=== PATIENT | male | born 1940 | race Caucasian/White ===

== ENCOUNTER 2020-07-06 12:51 | Outpatient (REF) | payer MEDICARE, OTHER, SELFPAY ==
[2020-07-06 15:51] LABS: TSH reflex Free T4 8.77 uIU/mL (0.32-4.0)
[2020-07-06 16:32] LABS: Free T4 (Free Thyroxine) 0.87 ng/dL (0.71-1.85)
== END 2020-07-06 12:52 | disposition home or self-care (01) ==
LOC: HO.LAB 12:51
PROVIDERS: PCP Internal Medicine Endocrinology, Diabetes & Metabolism; Visit Provider Internal Medicine
DX: I48.0 Paroxysmal atrial fibrillation (principal); I21.4 Non-ST elevation (NSTEMI) myocardial infarction; I35.0 Nonrheumatic aortic (valve) stenosis; Z79.899 Other long term (current) drug therapy
CPT/HCPCS: 36415; 84439; 84443; 93005; 99212

== ENCOUNTER 2020-12-25 09:47 | Outpatient (REF) | payer MEDICARE, OTHER, SELFPAY ==
[2020-12-25 10:35] LABS: Hematocrit 39.3 % (42-52); Mean Corpuscular HGB Conc 33.1 g/dl (31.0-36.0); Mean Corpuscular Hemoglobin 31.6 pg (27.0-33.0); Mean Corpuscular Volume 95.6 fL (80-98); Mean Platelet Volume 9.3 fL (9.4-12.4); Platelet Count 201 X10*3/uL (160-400); Red Blood Count 4.11 X10*6/uL (4.60-5.80); Red Cell Distribution Width 13.9 % (11.0-16.0); White Blood Count 4.7 X10*3/uL (4.8-10.8)
[2020-12-25 11:16] LABS: Alanine Aminotransferase 13 U/L (0-40); Albumin Level 4.3 g/dL (3.5-5.0); Alkaline Phosphatase 82 U/L (39-117); Anion Gap 12 (12-20); Aspartate Amino Transferase 17 U/L (5-37); Bilirubin Direct 0.2 mg/dL (0.0-0.5); Bilirubin Total 0.6 mg/dL (0.0-1.0); Blood Urea Nitrogen 27 mg/dL (9-16); Carbon Dioxide 23 mmol/L (22-29); Chloride 108 mmol/L (96-108); Estimated Glomerular Filt Rate > 60; Glucose Random 99 mg/dL (60-115); Potassium 4.5 mmol/L (3.3-5.1); Sodium 138 mmol/L (135-145); Total Protein 6.9 g/dL (6.5-8.0)
[2020-12-25 11:18] LABS: TSH reflex Free T4 7.28 uIU/mL (0.32-4.0)
[2020-12-25 11:54] LABS: Free T4 (Free Thyroxine) 0.91 ng/dL (0.71-1.85)
== END 2020-12-25 09:48 | disposition home or self-care (01) ==
LOC: HO.LAB 09:47
PROVIDERS: PCP Internal Medicine; Visit Provider Internal Medicine
DX: I48.0 Paroxysmal atrial fibrillation (principal)
CPT/HCPCS: 36415; 80048; 80076; 84439; 84443; 85027

== ENCOUNTER → 2021-01-04 09:32 | Outpatient (BNVA) | payer MEDICARE, OTHER, SELFPAY | PROVIDERS: PCP Internal Medicine Endocrinology, Diabetes & Metabolism; Referring Provider Internal Medicine; Visit Provider Internal Medicine | DX: I48.0 Paroxysmal atrial fibrillation (principal); I21.4 Non-ST elevation (NSTEMI) myocardial infarction; I35.0 Nonrheumatic aortic (valve) stenosis | CPT/HCPCS: 93005; 99212 ==

== ENCOUNTER 2021-03-30 08:58 | Outpatient (RCR) | payer MEDICARE, OTHER, SELFPAY | END 2021-08-27 09:22 | disposition home or self-care (01) | LOC: HO.WCC 08:58 | PROVIDERS: PCP Internal Medicine; Visit Provider Physician Assistant | DX: I87.331 Chronic venous hypertension (idiopathic) with ulcer and inflammation of right lower extremity (principal); L97.812 Non-pressure chronic ulcer of other part of right lower leg with fat layer exposed; T81.31XA Disruption of external operation (surgical) wound, not elsewhere classified, initial encounter; I73.9 Peripheral vascular disease, unspecified; C44.719 Basal cell carcinoma of skin of left lower limb, including hip; I48.91 Unspecified atrial fibrillation; Z87.891 Personal history of nicotine dependence | CPT/HCPCS: 11042; 11043; 15271; 29581; 97597; 99212; Q4160; Q4196 ==

== ENCOUNTER 2021-04-16 13:48 | Outpatient (REF) | payer MEDICARE, OTHER, SELFPAY ==
[2021-04-16 14:04] LABS: MANUAL DIFF FLAG NO
[2021-04-16 14:11] LABS: Basophils Absolute Auto 0.1 X10*3/uL (0.0-0.2); Eosinophils Absolute Auto 0.2 X10*3/uL (0.0-0.4); Hematocrit 41.5 % (42.0-52.0); Hemoglobin 13.6 g/dl (14.0-18.0); Imm Gran Abs Auto 0.01 X10*3/uL (0.00-0.03); Imm Gran Pct Auto 0.2 % (0.0-0.4); Lymphocytes Absolute Auto 1.9 X10*3/uL (1.2-4.9); Lymphocytes Percent Auto 36.7 % (20-40); Mean Corpuscular HGB Conc 32.8 g/dl (31.0-36.0); Mean Corpuscular Hemoglobin 30.6 pg (27.0-33.0); Mean Corpuscular Volume 93.5 fL (80.0-98.0); Mean Platelet Volume 9.5 fL (9.4-12.4); Monocytes Absolute Auto 0.6 X10*3/uL (0.1-1.2); Monocytes Percent Auto 10.5 % (2-11); Neutrophils Absolute Auto 2.5 x10*3/uL (2.0-8.3); Neutrophils Percent Auto 47.6 % (45-73); Platelet Count 216 X10*3/uL (160-400); Red Blood Count 4.44 X10*6/uL (4.60-5.80); Red Cell Distribution Width 13.2 % (11.0-16.0); White Blood Count 5.2 X10*3/uL (4.8-10.8)
[2021-04-16 14:37] LABS: Anion Gap 14 (12-20); Blood Urea Nitrogen 25 mg/dL (9-16); Calcium 9.1 mg/dL (8.4-10.2); Carbon Dioxide 22 mmol/L (22-29); Chloride 106 mmol/L (96-108); Estimated Glomerular Filt Rate > 60; Glucose Random 106 mg/dL (60-115); Potassium 4.8 mmol/L (3.3-5.1); Sodium 137 mmol/L (135-145)
[2021-04-16 15:00] LABS: Free T4 (Free Thyroxine) 0.95 ng/dL (0.71-1.85); Thyroid Stimulating Hormone 4.87 uIU/mL (0.32-4.0)
== END 2021-04-16 13:49 | disposition home or self-care (01) ==
LOC: HO.LAB 13:48
PROVIDERS: PCP Internal Medicine; Visit Provider Internal Medicine
DX: R48.0 Dyslexia and alexia (principal); R60.0 Localized edema; M19.90 Unspecified osteoarthritis, unspecified site; R94.6 Abnormal results of thyroid function studies
CPT/HCPCS: 36415; 80048; 84439; 84443; 85025

== ENCOUNTER 2021-04-23 07:49 | Day surgery (SDC) | payer MEDICARE, OTHER, SELFPAY ==
[2021-04-16 11:56] VITALS: BMI 27.0
--- NOTE | 2021-04-17 10:55 | HP_ITS ---
DATE OF SERVICE: 04/23/2021 The patient is a 80, almost 81-year-old male scheduled for a right cataract replacement by Dr. Wilde on April 23 at [facility]. Patient was seen today for preop evaluation. The patient is being followed in the [facility] for right pretibial wound, which developed after removal of a skin cancer area. The patient is on Xarelto for paroxysmal atrial fibrillation. He takes metoprolol 12.5 a day, tamsulosin 0.4 mg at bedtime, and amiodarone has been discontinued. PAST MEDICAL HISTORY: Significant for atrial fibrillation. BPH, osteoarthritis of the knees, hemorrhoids, right total hip replacement in 2010, basal cell cancer removed from the right leg. REVIEW OF SYSTEMS: No fevers, chills, or sweats. He has put on 6 pounds since last visit. No headaches or dizziness. No voice changes. He does have some peripheral edema. No chest pain or palpitations. Some dyspnea with exertion. No cough or wheeze. No heartburn or stomach pains. Some nocturia and straining, osteoarthritis of the knees and hands. Sleep is interrupted by nocturia. Appetite is good. No complaints of seasonal allergies. Skin lesion at the right pretibial area, which is being treated by the [facility]. FAMILY HISTORY: Mother at 76 from complications of diabetes. Father at 54 from an [place] and hypertension. He has a brother in good health. SOCIAL: He is a , lives alone, has 2 children in good health. He quit smoking 40 years ago. He does not drink. PHYSICAL EXAMINATION: GENERAL: He is awake and alert, in no distress. VITAL SIGNS: Temperature 98.7, pulse 72, respirations 12, pressure 140/70, 99% oxygen saturation on room air. Weight is 200 pounds even, height is 5 feet 11 inches. HEENT: A little hard of hearing. TMs clear. Pharynx clear. HEART: Sounds S1 and S2. Regular rate. LUNGS: Clear. ABDOMEN: Soft, nontender. Positive bowel sounds. No HSM. EXTREMITIES: 2+ edema on the right with a dressing on the pretibial area, where the wound is being treated 1+ on the left with mild venous stasis disease bilaterally. No bruising. NEUROLOGIC: He is alert and oriented. ASSESSMENT AND PLAN: He is medically stable for the proposed procedure. I will be available if there are any medical issues. It is safe for him to stop the Xarelto the day before and on the day of the procedure and resume it the day after. He should continue taking the metoprolol every day. He uses the tamsulosin at bedtime. He is advised to avoid Aleve or Advil or anti-inflammatory medications because of the risk of bleeding with the Xarelto. He is medically stable for the proposed procedure. MD NANCY Guerrero/GARY / [id number]
--- NOTE | 2021-04-19 08:19 | MHC.SHP ---
Pre-Procedural Eval Section A Date of Service: 04/19/21 The patient is an INPATIENT: No Changes since office visit: No Cold of Flu in the past 2 weeks, No New Medical Problems, No Changes in Medication and No Patient answered all questions The History & Physical has been completed within 30 days and I have reviewed it.: Yes Section B Chief Complaint: cataract Allergies: Allergies Allergy/AdvReac Type Severity Reaction Status Date / Time No Known Allergies Allergy Verified 04/16/21 11:55 [No Known Allergies*] Plan Diagnosis/Plan: Unchanged I have reviewed the history and physical and performed a pertinent physical examination on my patient. No changes have occurred unless specified.
--- NOTE | 2021-04-20 08:46 | HO.ANESPROP2 ---
Documented by User: Li Mendez NP 04/20/21 08:47 HPI - Anesthesia Eval Consult details Narrative: 81yo M for Right Cataract Extraction IOL Insertion No prev cataract on record PCP cleared Xarelto for afib PMFSH Active Problems Active Problems: All Active Problems (Updated 04/16/21 @ 12:15 by Anabella Hussein, RN) Non-rheumatic aortic stenosis (Acute) NSTEMI (non-ST elevated myocardial infarction) (Acute) PAF (paroxysmal atrial fibrillation) (Acute) Past Medical History Medical History (Updated 04/16/21 @ 12:15 by Anabella Hussein RN) Cataract Non-rheumatic aortic stenosis NSTEMI (non-ST elevated myocardial infarction) PAF (paroxysmal atrial fibrillation) Wears dentures Family History Family History Father No problems noted. Mother No problems noted. Surgical History Surgical History (Updated 04/16/21 @ 12:15 by Anabella Hussein RN) History of right hip replacement (~2010) Hx of appendectomy Hx of basal cell carcinoma excision Hx of colonoscopy Social History Social History (Updated 04/16/21 @ 11:55 by Anabella Hussein RN) Do you presently have visiting nurse or other home services: Yes (VNA 2x week changes dressing on right lower leg s/p skin ca excision) Patient Tobacco Use Status: Former Tobacco user Quit Date: Use of substances other than those prescribed or required for medical reasons: No Are you DNR?: No Advance Directives: No Advance Directives Information Provided: Yes Advance Directives on File: No Meds Allergies Allergy/AdvReac Type Severity Reaction Status Date / Time No Known Allergies Allergy Verified 04/16/21 11:55 [No Known Allergies*] Home Medications Medication Instructions Recorded Confirmed Last Taken Type tamsulosin 0.4 mg capsule 1 cap PO QPM 04/16/21 04/16/21 Unknown History Exam Exam Date and Time: April 20, 2021 0846 Height,Weight and Vital Signs: Height 5 ft 11 in Weight 87.997 kg Assessment and Plan Assessment Anesthesia Assessment: Chart Reviewed Documented by User: Hoa Florence MD 04/23/21 10:39 PMFSH Active Problems Active Problems: All Active Problems (Updated 04/16/21 @ 12:15 by Anabella Hussein, RN) Non-rheumatic aortic stenosis (Acute)- Patient unaware. Echo 2019 - Normal EF 60-65%. Moderate calcification of aortic valve. Trivial AV regurgitation.Mild MR. Mild TR. Repeat echo 12/07/19: EF 60-65%. Interatrial shunt cannot be excluded. Mild calcification of AV. Mild AV stenosis. DC 1.82cm2. Trace MR NSTEMI (non-ST elevated myocardial infarction) (Acute) in setting of afib with RVR post colonoscopy 2018 PAF (paroxysmal atrial fibrillation) (Acute) Past Medical History Medical History (Updated 04/16/21 @ 12:15 by Anabella Hussein RN) Cataract Non-rheumatic aortic stenosis NSTEMI (non-ST elevated myocardial infarction) PAF (paroxysmal atrial fibrillation) Wears dentures Family History Family History Father No problems noted. Mother No problems noted. Family history of problems with anesthesia: No Surgical History Surgical History (Updated 04/16/21 @ 12:15 by Anabella Hussein, RN) History of right hip replacement (~2010) Hx of appendectomy Hx of basal cell carcinoma excision Hx of colonoscopy History of Problems with Anesthesia: No (As above - afib post colonoscopy) Social History Social History (Updated 04/16/21 @ 11:55 by Anabella Hussein, MELVI) Do you presently have visiting nurse or other home services: Yes (VNA 2x week changes dressing on right lower leg s/p skin ca excision) Patient Tobacco Use Status: Former Tobacco user Quit Date: Use of substances other than those prescribed or required for medical reasons: No Are you DNR?: No Advance Directives: No Advance Directives Information Provided: Yes Advance Directives on File: No Meds Allergies Allergy/AdvReac Type Severity Reaction Status Date / Time No Known Allergies Allergy Verified 04/16/21 11:55 [No Known Allergies*] Home Medications Medication Instructions Recorded Confirmed Last Taken Type tamsulosin 0.4 mg capsule 1 cap PO QPM 04/16/21 04/16/21 Unknown History Exam Height,Weight and Vital Signs: Height 5 ft 11 in Weight 87.997 kg Vital Signs Temp Pulse Resp BP Pulse Ox 04/23/21 09:21 98.4 F 73 18 148/66 H 97 Airway Mallampati Class: II TM Dist: >3cm Neck ROM: Full Denture: Upper Loose/Missing/Broken Teeth: Yes (Some missing bottom) Heart: RRR. Unable to hear heart murmur Lungs: CTAB Assessment and Plan Assessment Anesthesia Assessment: Anesthesia Plan Discussed Final Anesthetic Review Family History of Problems with Anesthesia: No History of Problems with Anesthesia: No (As above - afib post colonoscopy) NPO: Yes ASA Class: III Final Preanesthetic Review: No Changes in Pt Med Stat, Meds/Allgs Chart Reviewed, Consent Obtained/Reviewed and Anes Risks/Benef Reviewed Patient Risk: Intermediate Procedure Risk: Low Assessment/Block/Sedation in SS: Assess/Block/Sedation-SS Anesthetic Plan Anesthetic Plan: MAC: Disposition: Standard PACU
[2021-04-23 09:21] VITALS: BP 148/66; PULSE 73; RESP 18; TEMP 36.9; O2SAT 97
[2021-04-23] MEDS: Lactated Ringers 500 ML 50 ML IV (09:23)
[2021-04-23] MEDS: Tetracaine HCl/PF 0.5% Oph Sol 4 ML DROPS 1 DROP EYE-RIGHT (09:24)
[2021-04-23] MEDS: Tropicamide 1 % Ophth Sol 3 ML BTL 1 DROP EYE-RIGHT ×3 (09:27→09:36)
[2021-04-23] MEDS: Phenylephrine HCL 2.5% Oph SoL 2 ML BOTTLE 1 DROP EYE-RIGHT ×3 (09:30→09:38)
--- NOTE | 2021-04-23 11:03 | HO.PNOPHT ---
Ophthalmology Procedure Procedure Date of Service: 04/23/21 Ophthalmology Viscoelastic: Healalma rosa Duet Dual Pack Pro Ophthalmology Lenses: TECNEERU [id number] (22) Procedure Notes: PREOPERATIVE DIAGNOSIS: Decreased visual acuity right eye secondary to cataract POSTOPERATIVE DIAGNOSIS: Same PROCEDURE: Right cataract extraction with intraocular lens insertion SURGEON: Kelvin Wilde M.D. ANESTHESIA: Topical/MAC ESTIMATED BLOOD LOSS: None COMPLICATIONS: None After obtaining informed consent, the patient was brought to the operating room suite and placed in the supine position. After adequate sedation per anesthesia, topical drops of Tetracaine were given to the right eye. The eye was then prepped and draped in the usual sterile fashion. The operating room microscope was then positioned over the operative eye and a lid speculum placed. A paracentesis was created. Viscoelastic was then instilled into the anterior chamber. A three plane incision was then created temporally, utilizing a 2.85 mm keratome. Capsulotomy forceps were then utilized to create a circular tear capsulotomy. Hydrodissection and hydrodelineation were carried out until adequate mobilization of the nucleus occurred. Phacoemulsification was then utilized to remove the dense central nucleus followed by removal of the cortical material utilizing the automated aspiration irrigation unit. Viscoelastic was instilled into the posterior capsular bag followed by placement of a posterior chamber intraocular lens without difficulty. The residual Viscoelastic was then removed utilizing the automated IA machine. The wound was checked and found to be watertight. The patient tolerated the procedure well and the lid speculum was removed. Intracameral injection of Vigamox 0.1 mL followed by a subtenon injection of Kenalog-40 0.2 mL were administered. The patient will be seen in the a.m.
[2021-04-23 11:37] VITALS: BP 141/60; PULSE 76; RESP 16; TEMP 36.4; O2SAT 96
== END 2021-04-23 11:35 | disposition home or self-care (01) ==
PROVIDERS: PCP Internal Medicine; Visit Provider Ophthalmology
PROC: (CPT 66985; principal; 2021-04-23 11:00)
DX: H25.11 Age-related nuclear cataract, right eye (principal); H52.4 Presbyopia; I48.91 Unspecified atrial fibrillation; Z87.891 Personal history of nicotine dependence; Z79.01 Long term (current) use of anticoagulants; Z79.899 Other long term (current) drug therapy
CPT/HCPCS: 66984; J2250; J3010; J3300; V2632

== ENCOUNTER 2021-05-07 08:06 | Day surgery (SDC) | payer MEDICARE, OTHER, SELFPAY ==
[2021-04-16 12:00] VITALS: BMI 27.0
--- NOTE | 2021-05-03 16:38 | MHC.SHP ---
Pre-Procedural Eval Section A Date of Service: 05/03/21 The patient is an INPATIENT: No Changes since office visit: No Cold of Flu in the past 2 weeks, No New Medical Problems, No Changes in Medication and No Patient answered all questions The History & Physical has been completed within 30 days and I have reviewed it.: Yes Section B Chief Complaint: cataract Allergies: Allergies Allergy/AdvReac Type Severity Reaction Status Date / Time No Known Allergies Allergy Verified 04/16/21 11:55 [No Known Allergies*] Plan Diagnosis/Plan: Unchanged I have reviewed the history and physical and performed a pertinent physical examination on my patient. No changes have occurred unless specified.
--- NOTE | 2021-05-04 08:43 | HO.ANESPROP2 ---
Documented by User: Li Mendez NP 05/04/21 08:44 HPI - Anesthesia Eval Consult details Narrative: 81yo M for Left Cataract Extraction IOL Insertion PCP Cleared Right eye 04/23/2021 with TIVA: Fentanyl 50, Midaz 1 Xarelto for afib PMFSH Active Problems Active Problems: All Active Problems (Updated 04/16/21 @ 12:15 by Anabella Hussein, MELVI) Non-rheumatic aortic stenosis (Acute) NSTEMI (non-ST elevated myocardial infarction) (Acute) PAF (paroxysmal atrial fibrillation) (Acute) Past Medical History Medical History (Updated 04/16/21 @ 12:15 by Anabella Hussein, MELVI) Cataract Non-rheumatic aortic stenosis NSTEMI (non-ST elevated myocardial infarction) PAF (paroxysmal atrial fibrillation) Wears dentures Family History Family History Father No problems noted. Mother No problems noted. Family history of problems with anesthesia: No Surgical History Surgical History (Updated 04/16/21 @ 12:15 by Anabella Hussein RN) History of right hip replacement (~2010) Hx of appendectomy Hx of basal cell carcinoma excision Hx of colonoscopy History of Problems with Anesthesia: No (As above - afib post colonoscopy) Social History Social History (Updated 04/16/21 @ 11:55 by Anabella Hussein RN) Do you presently have visiting nurse or other home services: Yes (VNA 2x week changes dressing on right lower leg s/p skin ca excision) Patient Tobacco Use Status: Former Tobacco user Quit Date: Are you DNR?: No Advance Directives: No Advance Directives Information Provided: Yes Advance Directives on File: No Meds Allergies Allergy/AdvReac Type Severity Reaction Status Date / Time No Known Allergies Allergy Verified 05/07/21 10:16 [No Known Allergies*] Home Medications Medication Instructions Recorded Confirmed Last Taken Type tamsulosin 0.4 mg capsule 1 cap PO QPM 04/16/21 04/16/21 Unknown History Exam Exam Date and Time: May 04, 2021 0843 Height,Weight and Vital Signs: Height 5 ft 11 in Weight 87.997 kg Assessment and Plan Assessment Anesthesia Assessment: Chart Reviewed Final Anesthetic Review Family History of Problems with Anesthesia: No History of Problems with Anesthesia: No (As above - afib post colonoscopy) Documented by User: Hoa Florence MD 05/07/21 11:03 [facility] Past Medical History Medical History (Updated 04/16/21 @ 12:15 by Anabella Hussein, RN) Cataract Non-rheumatic aortic stenosis NSTEMI (non-ST elevated myocardial infarction) PAF (paroxysmal atrial fibrillation) Wears dentures Family History Family History Father No problems noted. Mother No problems noted. Surgical History Surgical History (Updated 04/16/21 @ 12:15 by Anabella Hussein, RN) History of right hip replacement (~2010) Hx of appendectomy Hx of basal cell carcinoma excision Hx of colonoscopy Social History Social History (Updated 04/16/21 @ 11:55 by Anabella Hussein, MELVI) Do you presently have visiting nurse or other home services: Yes (VNA 2x week changes dressing on right lower leg s/p skin ca excision) Patient Tobacco Use Status: Former Tobacco user Quit Date: Are you DNR?: No Advance Directives: No Advance Directives Information Provided: Yes Advance Directives on File: No Meds Allergies Allergy/AdvReac Type Severity Reaction Status Date / Time No Known Allergies Allergy Verified 05/07/21 10:16 [No Known Allergies*] Home Medications Medication Instructions Recorded Confirmed Last Taken Type tamsulosin 0.4 mg capsule 1 cap PO QPM 04/16/21 04/16/21 Unknown History Exam Height,Weight and Vital Signs: Height 5 ft 11 in Weight 87.997 kg Vital Signs Temp Pulse Resp BP Pulse Ox 05/07/21 10:20 97.7 F 63 16 163/66 H 98 Airway Mallampati Class: II TM Dist: >3cm Neck ROM: Full Loose/Missing/Broken Teeth: Yes (Some missing bottom) Heart: RRR+ murmur Lungs: CTAB Assessment and Plan Assessment Anesthesia Assessment: Anesthesia Plan Discussed Final Anesthetic Review NPO: Yes ASA Class: III Final Preanesthetic Review: No Changes in Pt Med Stat, Meds/Allgs Chart Reviewed, Consent Obtained/Reviewed and Anes Risks/Benef Reviewed Patient Risk: Intermediate Procedure Risk: Low Assessment/Block/Sedation in SS: Assess/Block/Sedation-SS Anesthetic Plan Anesthetic Plan: MAC: Disposition: Standard PACU
[2021-05-07 10:20] VITALS: BP 163/66; PULSE 63; RESP 16; TEMP 36.5; O2SAT 98
[2021-05-07] MEDS: Tetracaine HCl/PF 0.5% Oph Sol 4 ML DROPS 1 DROP EYE-LEFT (10:24)
[2021-05-07] MEDS: Tropicamide 1 % Ophth Sol 3 ML BTL 1 DROP EYE-LEFT ×3 (10:26→10:38)
[2021-05-07] MEDS: Phenylephrine HCL 2.5% Oph SoL 2 ML BOTTLE 1 DROP EYE-LEFT ×3 (10:30→10:42)
[2021-05-07] MEDS: Lactated Ringers 500 ML 50 ML IV (11:11)
--- NOTE | 2021-05-07 12:00 | HO.PNOPHT ---
Ophthalmology Procedure Procedure Date of Service: 05/07/21 Ophthalmology Viscoelastic: Healon Duet Dual Pack Pro Ophthalmology Lenses: TECNEERU [id number] (22) Procedure Notes: PREOPERATIVE DIAGNOSIS: Decreased visual acuity left eye secondary to cataract POSTOPERATIVE DIAGNOSIS: Same PROCEDURE: Left cataract extraction with intraocular lens insertion SURGEON: Kelvin Wilde M.D. ANESTHESIA: Topical/MAC ESTIMATED BLOOD LOSS: None COMPLICATIONS: None After obtaining informed consent, the patient was brought to the operation room suite and placed in the supine position. After adequate sedation per anesthesia, topical drops of Tetracaine were given to the left eye. The eye was then prepped and draped in the usual sterile fashion. The operating room microscope was then positioned over the operative eye and a lid speculum placed. A paracentesis was created. Viscoelastic was then instilled into the anterior chamber. A three plane incision was then created temporally, utilizing a 2.85 mm keratome. Capsulotomy forceps were then utilized to create a circular tear capsulotomy. Hydrodissection and hydrodelineation were carried out until adequate mobilization of the nucleus occurred. Phacoemulsification was then utilized to remove the dense central nucleus followed by removal of the cortical material utilizing the automated aspiration irrigation unit. Viscoat elastic was instilled into the posterior capsular bag followed by placement of a posterior chamber intraocular lens without difficulty. The residual Viscoat elastic was then removed utilizing the automated IA machine. The wound was check and found to be watertight. The patient tolerated the procedure well and the lid speculum was removed. Intracameral injection of Vigamox 0.1 mL followed by a subtenon injection of Kenalog-40 0.2 mL were administered. The patient will be seen in the a.m.
[2021-05-07 12:29] VITALS: BP 124/52; PULSE 58; RESP 16; TEMP 36.6; O2SAT 98
== END 2021-05-07 12:39 | disposition home or self-care (01) ==
PROVIDERS: PCP Internal Medicine; Visit Provider Ophthalmology
PROC: (CPT 66985; principal; 2021-05-07 11:30)
DX: H25.12 Age-related nuclear cataract, left eye (principal); H52.4 Presbyopia; H54.7 Unspecified visual loss; I48.0 Paroxysmal atrial fibrillation; N40.1 Benign prostatic hyperplasia with lower urinary tract symptoms; R35.1 Nocturia; Z85.828 Personal history of other malignant neoplasm of skin; Z79.01 Long term (current) use of anticoagulants; Z79.899 Other long term (current) drug therapy; Z87.891 Personal history of nicotine dependence
CPT/HCPCS: 66984; J2250; J3010; J3300; V2632

== ENCOUNTER 2021-05-29 07:31 | Outpatient (REF) | payer MEDICARE, OTHER, SELFPAY ==
--- NOTE | ~2021-05-29 | US_ITS ---
EXAMINATION: Noninvasive assessment of the arteries of both lower extremities to include a PVR exam limited (1-2 levels) and GE, bilateral. ? Pato Bah M.D. CLINICAL INFORMATION: Leg pain, peripheral vascular disease COMPARISON: None TECHNIQUE: The ankle/brachial indices of the distal posterior tibial and the dorsalis pedis arteries were obtained of the lower extremity arterial system bilaterally; along with pressures and pulse volume recordings at the ankle and duplex Doppler techniques of the right lower extremity. ? FINDINGS AT REST:? RIGHT LE. THE RIGHT ANKLE-BRACHIAL INDEX IS: 0.7 (higher of the DP/PT) >0.97-1.25 = normal - no significant arterial disease 0.75-0.96 = mild peripheral arterial disease 0.50-0.74 = moderate peripheral arterial disease <0.50 = severe peripheral arterial disease <0.30 = critical arterial disease 2. SEGMENTAL PRESSURES: Ankle: PT 196 DP not audible 3. PVR WAVEFORMS: Ankle: Blunted 4. DIRECT DUPLEX: Duplex Doppler imaging of the right lower extremity demonstrates normal multiphasic waveforms in the common femoral artery through the distal SFA. There is only a velocities with monophasic waveform in the popliteal artery, peak systolic velocity is 177 cm/s. Catheter vessels are not visualized due to overlying dressing. Collateral vessels are visualized distally. LEFT LE. THE LEFT ANKLE-BRACHIAL INDEX IS: 0.82 (higher of the DP/PT) >0.97-1.25 = normal - no significant arterial disease 0.75-0.96 = mild peripheral arterial disease 0.50-0.74 = moderate peripheral arterial disease <0.50 = severe peripheral arterial disease <0.30 = critical arterial disease 2. SEGMENTAL PRESSURES: Ankle: PT 87 DP 112 3. PVR WAVEFORMS: Ankle: Abnormally blunted ? US/US arterial duplex LE RT IMPRESSION: The ankle brachial indices and PVR waveforms suggest at least moderate peripheral vascular disease on the right and mild on the left. The right dorsalis pedis is not audible. Elevated velocity with monophasic flow in the right popliteal artery. Consider further evaluation with CTA with bilateral lower extremity runoff for better evaluation of the lower extremity arterial system.
--- NOTE | ~2021-05-29 | US_ITS ---
EXAMINATION: Noninvasive assessment of the arteries of both lower extremities to include a PVR exam limited (1-2 levels) and GE, bilateral. ? Pato Bah M.D. CLINICAL INFORMATION: Leg pain, peripheral vascular disease COMPARISON: None TECHNIQUE: The ankle/brachial indices of the distal posterior tibial and the dorsalis pedis arteries were obtained of the lower extremity arterial system bilaterally; along with pressures and pulse volume recordings at the ankle and duplex Doppler techniques of the right lower extremity. ? FINDINGS AT REST:? RIGHT LE. THE RIGHT ANKLE-BRACHIAL INDEX IS: 0.7 (higher of the DP/PT) >0.97-1.25 = normal - no significant arterial disease 0.75-0.96 = mild peripheral arterial disease 0.50-0.74 = moderate peripheral arterial disease <0.50 = severe peripheral arterial disease <0.30 = critical arterial disease 2. SEGMENTAL PRESSURES: Ankle: PT 196 DP not audible 3. PVR WAVEFORMS: Ankle: Blunted 4. DIRECT DUPLEX: Duplex Doppler imaging of the right lower extremity demonstrates normal multiphasic waveforms in the common femoral artery through the distal SFA. There is only a velocities with monophasic waveform in the popliteal artery, peak systolic velocity is 177 cm/s. Catheter vessels are not visualized due to overlying dressing. Collateral vessels are visualized distally. LEFT LE. THE LEFT ANKLE-BRACHIAL INDEX IS: 0.82 (higher of the DP/PT) >0.97-1.25 = normal - no significant arterial disease 0.75-0.96 = mild peripheral arterial disease 0.50-0.74 = moderate peripheral arterial disease <0.50 = severe peripheral arterial disease <0.30 = critical arterial disease 2. SEGMENTAL PRESSURES: Ankle: PT 87 DP 112 3. PVR WAVEFORMS: Ankle: Abnormally blunted ? US/US GE complete IMPRESSION: The ankle brachial indices and PVR waveforms suggest at least moderate peripheral vascular disease on the right and mild on the left. The right dorsalis pedis is not audible. Elevated velocity with monophasic flow in the right popliteal artery. Consider further evaluation with CTA with bilateral lower extremity runoff for better evaluation of the lower extremity arterial system.
== END 2021-05-29 07:32 | disposition home or self-care (01) ==
LOC: HO.US 07:31
PROVIDERS: PCP Internal Medicine; Visit Provider Physician Assistant
DX: I73.9 Peripheral vascular disease, unspecified (principal)
CPT/HCPCS: 93923; 93926

== ENCOUNTER 2021-06-27 14:16 | Outpatient (REF) | payer MEDICARE, OTHER, SELFPAY ==
[2021-06-27 15:13] LABS: Blood Urea Nitrogen 22 mg/dL (9-16); Estimated Glomerular Filt Rate > 60
== END 2021-06-27 14:17 | disposition home or self-care (01) ==
LOC: HO.LAB 14:16
PROVIDERS: PCP Internal Medicine; Visit Provider Radiology Vascular & Interventional Radiology
DX: R79.89 Other specified abnormal findings of blood chemistry (principal); R94.4 Abnormal results of kidney function studies
CPT/HCPCS: 36415; 82565; 84520

== ENCOUNTER → 2021-07-12 09:45 | Outpatient (BNVA) | payer MEDICARE, OTHER, SELFPAY | PROVIDERS: PCP Internal Medicine; Referring Provider Internal Medicine; Visit Provider Internal Medicine | DX: I48.0 Paroxysmal atrial fibrillation (principal); I35.0 Nonrheumatic aortic (valve) stenosis; I25.2 Old myocardial infarction | CPT/HCPCS: 99212 ==

== ENCOUNTER 2021-10-15 14:26 | Outpatient (REF) | payer MEDICARE, OTHER, SELFPAY ==
[2021-10-15 14:45] LABS: MANUAL DIFF FLAG NO
[2021-10-15 15:27] LABS: Basophils Percent Auto 0.4 % (0-2); Eosinophils Absolute Auto 0.3 X10*3/uL (0.0-0.4); Eosinophils Percent Auto 6.4 % (0-4); Hematocrit 38.2 % (42.0-52.0); Hemoglobin 12.8 g/dl (14.0-18.0); Imm Gran Abs Auto 0.01 X10*3/uL (0.00-0.03); Imm Gran Pct Auto 0.2 % (0.0-0.4); Lymphocytes Absolute Auto 1.9 X10*3/uL (1.2-4.9); Lymphocytes Percent Auto 38.3 % (20-40); Mean Corpuscular HGB Conc 33.5 g/dl (31.0-36.0); Mean Corpuscular Hemoglobin 30.5 pg (27.0-33.0); Mean Corpuscular Volume 91.2 fL (80.0-98.0); Mean Platelet Volume 9.9 fL (9.4-12.4); Monocytes Absolute Auto 0.5 X10*3/uL (0.1-1.2); Monocytes Percent Auto 11.2 % (2-11); Neutrophils Absolute Auto 2.1 x10*3/uL (2.0-8.3); Neutrophils Percent Auto 43.5 % (45-73); Platelet Count 193 X10*3/uL (160-400); Red Blood Count 4.19 X10*6/uL (4.60-5.80); Red Cell Distribution Width 13.9 % (11.0-16.0); White Blood Count 4.8 X10*3/uL (4.8-10.8)
[2021-10-15 15:52] LABS: Alanine Aminotransferase 15 U/L (0-40); Albumin Level 4.3 g/dL (3.5-5.0); Alkaline Phosphatase 67 U/L (39-117); Anion Gap 14 (12-20); Aspartate Amino Transferase 17 U/L (5-37); Bilirubin Total 0.6 mg/dL (0.0-1.0); Blood Urea Nitrogen 24 mg/dL (9-16); Calcium 9.3 mg/dL (8.4-10.2); Carbon Dioxide 21 mmol/L (22-29); Chloride 110 mmol/L (96-108); Cholesterol 189 mg/dL; Estimated Glomerular Filt Rate > 60; Glucose Fasting 128 mg/dL (60-99); HDL Cholesterol 33 mg/dL; LDL Cholesterol Calculated 120 mg/dl; Potassium 4.5 mmol/L (3.3-5.1); Sodium 140 mmol/L (135-145); Total Protein 7.1 g/dL (6.5-8.0); Triglycerides 184 mg/dL
[2021-10-15 16:13] LABS: Free T4 (Free Thyroxine) 0.97 ng/dL (0.71-1.85); Prostate Specific Antigen 0.55 ng/mL (<0.05-4.0); Thyroid Stimulating Hormone 1.67 uIU/mL (0.32-4.0)
== END 2021-10-15 14:27 | disposition home or self-care (01) ==
LOC: HO.LAB 14:26
PROVIDERS: PCP Internal Medicine; Visit Provider Internal Medicine
DX: Z12.5 Encounter for screening for malignant neoplasm of prostate (principal); I73.9 Peripheral vascular disease, unspecified; E78.00 Pure hypercholesterolemia, unspecified; I48.0 Paroxysmal atrial fibrillation; N40.0 Benign prostatic hyperplasia without lower urinary tract symptoms; R94.6 Abnormal results of thyroid function studies
CPT/HCPCS: 36415; 80053; 80061; 84153; 84439; 84443; 85025

== ENCOUNTER → 2021-11-15 09:56 | Outpatient (BNVA) | payer MEDICARE, OTHER, SELFPAY | PROVIDERS: PCP Internal Medicine; Referring Provider Internal Medicine; Visit Provider Internal Medicine | DX: I48.0 Paroxysmal atrial fibrillation (principal); I21.4 Non-ST elevation (NSTEMI) myocardial infarction; I35.0 Nonrheumatic aortic (valve) stenosis | CPT/HCPCS: 93005; 99212 ==

== ENCOUNTER → 2021-12-20 12:37 | Outpatient (REF) | payer MEDICARE, OTHER, SELFPAY ==
--- NOTE | 2021-12-20 12:52 | HM_ITS ---
Conclusion: 1. Patient was monitored for total period of 1 day and 21 hours 2. Baseline was normal sinus rhythm with average heart of 66 beats per minute 3. No significant pauses noted 4. Five short episode of SVT noted longest lasting 7 beats 5. Total of 564 PACs accounting for 0.31% of total beats account for occasional PACs 6. No patient reported events MTDD
--- NOTE | 2021-12-20 12:52 | CA_ITS ---
Transthoracic Echocardiogram Patient (Last, First, Middle): Fabio Javed K Gender: Male Date of : 1940 Age: 81 Procedure Date: 12/20/2021 Procedure Type: Transthoracic Echocardiogram Location: OP Height: 180.34 cm Weight: 90.72 kg BSA: 2.11 m2 Heart Rate: bpm BP: 138 / 60 mmHg Machine Whitener: ANNE Referring MD: Paxton Rasheed MD Canvas Shrinker: Percy Kirk MD Symptoms: I35.0 - Nonrheumatic aortic (valve) stenosis Study Quality: Fair ECG Rhythm: Sinus Conclusions: - 1. Normal LV systolic function with impaired relaxation filling pattern 2. Mild aortic stenosis 3. Normal RV systolic pressure 4. No pericardial effusion Findings Left Ventricle Normal left ventricular size, thickness, and systolic function. The visually estimated ejection fraction is between 60-65%. Spectral Doppler is indicative of an impaired relaxation filling pattern. E/E prime ratio is between 8 and 15 consistent with indeterminate filling pressures. Right Ventricle Normal right ventricular cavity size and systolic function. Atria Both atria are normal in size. There is no evidence of interatrial shunt. Aortic Valve There is mild calcification of the aortic valve. There is mild aortic valve stenosis. The peak aortic gradient is 14 mmHg.The mean gradient is 7 mmHg. The aortic valve area is 1.77 cm2. There is no aortic valve regurgitation. Mitral Valve There is mild anterior and posterior mitral leaflet thickening. There is mild mitral annular calcification. There is trace mitral valve regurgitation. There is no mitral valve stenosis. Pulmonic Valve The pulmonic valve was not well visualized. Tricuspid Valve Likely normal tricuspid valve structure and function. There is trace tricuspid valve regurgitation. The right ventricular systolic pressure is normal. The right ventricular systolic pressure is 24 mmHg. Normal right atrial pressure. There is no evidence of pulmonary hypertension. Great Vessels All visible segments of the aorta are normal in size. The pulmonary artery was not well visualized. Venous The inferior vena cava is normal in size and collapses greater than 50% with inspiration. Pericardium/Pleural There is no evidence of pericardial effusion. Prior Study Comparison No significant change compared to prior study dated: 12/07/2019. Measurements 2D Linear Measurements IVSd: 1.08 0.6-0.9/0.6-1.0 cm LVIDd: 4.11 3.9-5.3/4.2-5.9 cm LVIDd Index: 1.95 2.4-3.2/2.2-3.1 cm/m2 LVIDs: 2.82 2.0-3.6 cm LVPWd: 1.00 0.7-1.1 cm LA Diam: 3.20 2.7-3.8/3.0-4.0 cm LAIDs Index: 1.52 1.5-2.3 cm/m2 LV Mass: 174.46 67-162/88-224 g LV Mass Index: 82.68 43-95/49-115 g/m2 LVOT Diam: 2.00 3.0+(-)1.3 cm 2D Systolic Function EF 4C: 60.10 >55% EF 2C: 61.40 >55% EF BiP: 60.20 >55% Mitral Valve MV Pk E: 0.92 MV PK A: 0.89 MV Decel Time: 269.00 E/A: 1.00 E'Lateral: 8.16 E'Medial: 8.05 E/E' Med: 11.50 E/E' Lat: 11.30 PHT: 79.00 MVA PHT: 2.78 Decel Jefferson: 3.42 Aortic Valve AoV Pk Jae: 1.90 AoV Mn Jae: 1.25 AoV VTI: 0.44 AoV Pk Grad: 14.00 Aov Mn Grad: 7.00 DC Cont.VTI: 1.77 LVOT LVOT Pk Jae: 1.08 LVOT Mn Jae: 0.77 LVOT VTI: 0.25 LVOT Pk Grad: 5.00 LVOT Mn Grad: 3.00 LVOT Diam: 2.00 LVOT Area: 3.14 Diastolic Function MV Pk E: 0.92 MV Pk A: 0.89 E/A: 1.00 E'Medial: 8.05 E/E' Med: 11.50 E' Laterial: 8.16 E/E' Lat: 11.30 Right Ventricle TAPSE (mm): 26.50 TVS' Jae: 12.40 Tricuspid Valve TR Pk Jae: 2.31 TR Pk Grad: 21.00 RA Press: 3.00 RVSP: 24.00 Great Vessels Aorta Sinus of Valsalva: 3.50 2.0-3.[address] Ridge: 2.20 1.7-3.4 cm Ao Asc: 3.60 2.1-3.4 cm Updated in Other Vendor System with Status of Final Percy Kirk MD electronically signed on 12/20/2021 4:16:07 PM with status of Final
== END ==
LOC: HO.CARD 12:37
PROVIDERS: Visit Provider Internal Medicine
DX: I48.0 Paroxysmal atrial fibrillation (principal); I35.0 Nonrheumatic aortic (valve) stenosis
CPT/HCPCS: 93242; 93306

== ENCOUNTER → 2022-01-30 12:07 | Outpatient (BNVA) | payer MEDICARE, OTHER, SELFPAY | PROVIDERS: PCP Internal Medicine; Referring Provider Internal Medicine; Visit Provider Internal Medicine | DX: I48.0 Paroxysmal atrial fibrillation (principal); I35.0 Nonrheumatic aortic (valve) stenosis; Z79.899 Other long term (current) drug therapy | CPT/HCPCS: 99212 ==

== ENCOUNTER 2022-02-28 14:47 | Outpatient (REF) | payer MEDICARE, OTHER, SELFPAY ==
[2022-02-28 15:06] LABS: MANUAL DIFF FLAG NO
[2022-02-28 15:22] LABS: Basophils Percent Auto 0.5 % (0-2); Eosinophils Absolute Auto 0.1 X10*3/uL (0.0-0.4); Eosinophils Percent Auto 1.9 % (0-4); Hematocrit 40.8 % (42.0-52.0); Hemoglobin 13.7 g/dl (14.0-18.0); Imm Gran Abs Auto 0.03 X10*3/uL (0.00-0.03); Imm Gran Pct Auto 0.5 % (0.0-0.4); Lymphocytes Absolute Auto 1.8 X10*3/uL (1.2-4.9); Lymphocytes Percent Auto 29.4 % (20-40); Mean Corpuscular HGB Conc 33.6 g/dl (31.0-36.0); Mean Corpuscular Volume 92.3 fL (80.0-98.0); Mean Platelet Volume 9.5 fL (9.4-12.4); Monocytes Absolute Auto 0.7 X10*3/uL (0.1-1.2); Monocytes Percent Auto 10.4 % (2-11); Neutrophils Absolute Auto 3.6 x10*3/uL (2.0-8.3); Neutrophils Percent Auto 57.3 % (45-73); Platelet Count 187 X10*3/uL (160-400); Red Blood Count 4.42 X10*6/uL (4.60-5.80); Red Cell Distribution Width 14.1 % (11.0-16.0); White Blood Count 6.3 X10*3/uL (4.8-10.8)
[2022-02-28 15:38] LABS: Estimated Average Glucose 120 mg/dL; Hemoglobin A1c % 5.8 %
[2022-02-28 15:45] LABS: Anion Gap 15 (12-20); Blood Urea Nitrogen 27 mg/dL (9-16); Carbon Dioxide 23 mmol/L (22-29); Chloride 104 mmol/L (96-108); Estimated Glomerular Filt Rate > 60; Glucose Random 105 mg/dL (60-115); Potassium 4.6 mmol/L (3.3-5.1); Sodium 137 mmol/L (135-145)
[2022-02-28 16:08] LABS: Free T4 (Free Thyroxine) 1.36 ng/dL (0.71-1.85); Thyroid Stimulating Hormone 1.06 uIU/mL (0.32-4.0)
== END 2022-02-28 14:48 | disposition home or self-care (01) ==
LOC: HO.LAB 14:47
PROVIDERS: PCP Internal Medicine; Visit Provider Internal Medicine
DX: I73.9 Peripheral vascular disease, unspecified (principal); I48.0 Paroxysmal atrial fibrillation; R60.9 Edema, unspecified; E05.90 Thyrotoxicosis, unspecified without thyrotoxic crisis or storm; R73.03 Prediabetes; D64.9 Anemia, unspecified
CPT/HCPCS: 36415; 80048; 83036; 84439; 84443; 85025

== ENCOUNTER 2022-06-13 14:15 | Outpatient (REF) | payer MEDICARE, OTHER, SELFPAY ==
[2022-06-13 14:35] LABS: MANUAL DIFF FLAG NO
[2022-06-13 15:05] LABS: Basophils Percent Auto 0.5 % (0-2); Eosinophils Percent Auto 0.3 % (0-4); Hematocrit 43.8 % (42.0-52.0); Hemoglobin 14.7 g/dl (14.0-18.0); Imm Gran Abs Auto 0.02 X10*3/uL (0.00-0.03); Imm Gran Pct Auto 0.5 % (0.0-0.4); Lymphocytes Absolute Auto 1.4 X10*3/uL (1.2-4.9); Lymphocytes Percent Auto 33.8 % (20-40); Mean Corpuscular HGB Conc 33.6 g/dl (31.0-36.0); Mean Corpuscular Hemoglobin 31.5 pg (27.0-33.0); Mean Corpuscular Volume 93.8 fL (80.0-98.0); Mean Platelet Volume 9.5 fL (9.4-12.4); Monocytes Absolute Auto 0.6 X10*3/uL (0.1-1.2); Monocytes Percent Auto 15.3 % (2-11); Neutrophils Percent Auto 49.6 % (45-73); Platelet Count 166 X10*3/uL (160-400); Red Blood Count 4.67 X10*6/uL (4.60-5.80); Red Cell Distribution Width 13.8 % (11.0-16.0)
[2022-06-13 15:50] LABS: Estimated Average Glucose 117 mg/dL; Hemoglobin A1c % 5.7 %
[2022-06-13 16:00] LABS: Alanine Aminotransferase 16 U/L (0-40); Albumin Level 4.2 g/dL (3.5-5.0); Alkaline Phosphatase 67 U/L (39-117); Anion Gap 15 (12-20); Aspartate Amino Transferase 19 U/L (5-37); Bilirubin Total 0.9 mg/dL (0.0-1.0); Blood Urea Nitrogen 19 mg/dL (9-16); Calcium 8.8 mg/dL (8.4-10.2); Carbon Dioxide 22 mmol/L (22-29); Chloride 103 mmol/L (96-108); Cholesterol 199 mg/dL; Estimated Glomerular Filt Rate > 60; Glucose Fasting 90 mg/dL (60-99); HDL Cholesterol 40 mg/dL; LDL Cholesterol Calculated 141 mg/dl; Potassium 4.5 mmol/L (3.3-5.1); Sodium 135 mmol/L (135-145); Total Protein 6.5 g/dL (6.5-8.0); Triglycerides 94 mg/dL
[2022-06-13 16:16] LABS: Thyroid Stimulating Hormone 0.81 uIU/mL (0.32-4.0)
== END 2022-06-13 14:16 | disposition home or self-care (01) ==
LOC: HO.LAB 14:15
PROVIDERS: PCP Internal Medicine; Visit Provider Internal Medicine
DX: I48.0 Paroxysmal atrial fibrillation (principal); I73.9 Peripheral vascular disease, unspecified; D64.9 Anemia, unspecified; N40.0 Benign prostatic hyperplasia without lower urinary tract symptoms; R73.03 Prediabetes
CPT/HCPCS: 36415; 80053; 80061; 83036; 84443; 85025

== ENCOUNTER → 2022-07-08 09:51 | Outpatient (BNVA) | payer MEDICARE, OTHER, SELFPAY | PROVIDERS: PCP Internal Medicine; Referring Provider Internal Medicine; Visit Provider Internal Medicine | DX: I48.0 Paroxysmal atrial fibrillation (principal); I35.0 Nonrheumatic aortic (valve) stenosis; Z79.01 Long term (current) use of anticoagulants; Z79.899 Other long term (current) drug therapy | CPT/HCPCS: 99212 ==

== ENCOUNTER 2022-07-18 11:34 | Outpatient (REF) | payer MEDICARE, OTHER, SELFPAY ==
--- NOTE | ~2022-07-18 | XR_ITS ---
EXAMINATION: XR CHEST CLINICAL INFORMATION: Cough. Question CHF or pneumonia. COMPARISON: None TECHNIQUE: PA and lateral chest radiographs FINDINGS: Cardiac shadow is not enlarged. Mediastinal contours are unremarkable. There is no pulmonary vascular congestion. The lungs are well-expanded and there is biapical pleural-parenchymal change/scarring. There is overall slightly increased reticulation which could be suggestive of mild interstitial edema. No pleural effusion or pneumothorax. There are multilevel degenerative changes of the thoracic spine. There is no acute bony abnormality. XR/XR chest 2V IMPRESSION: Questionable increased reticulation which could be suggestive of mild interstitial edema. No focal opacity.
== END 2022-07-18 11:35 | disposition home or self-care (01) ==
LOC: HO.XRAY 11:34
PROVIDERS: PCP Internal Medicine; Visit Provider Internal Medicine
DX: R05.9 Cough, unspecified (principal)
CPT/HCPCS: 71046

== ENCOUNTER 2022-10-22 14:43 | Outpatient (REF) | payer MEDICARE, OTHER, SELFPAY ==
--- NOTE | ~2022-10-22 | XR_ITS ---
EXAMINATION: XR WRIST, LEFT CLINICAL INFORMATION: Pain COMPARISON: None available. TECHNIQUE: Four views of the left wrist. FINDINGS: No fracture or dislocation. 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 Cyst in the ulnar styloid. Periarticular soft tissue swelling adjacent to the ulnar styloid. Soft tissue arterial calcification. 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 Large cyst in the ulnar styloid and adjacent soft tissue swelling.
== END 2022-10-22 14:44 | disposition home or self-care (01) ==
LOC: HO.XRAY 14:43
PROVIDERS: PCP Internal Medicine; Visit Provider Internal Medicine
DX: M25.532 Pain in left wrist (principal)
CPT/HCPCS: 73110

== ENCOUNTER 2022-12-23 14:08 | Outpatient (AMB) | payer MEDICARE, OTHER, SELFPAY ==
[2022-12-23 14:19] VITALS: BP 142/64; PULSE 79
--- NOTE | 2022-12-23 14:19 | MHC.OFFVIS ---
Intake Vital Signs 12/23/22 14:19 Height 5 ft 11 in BP 142/64 H Blood Pressure Location Lt brachial Position Sitting Pulse 79 Intake Visit Reasons: leg wound Intake Note: This patient presents for an assessment for wound of the leg. Patient c/o; leg wound, redness, was on course of Doxycycline. 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 He apparently had excision of a basal cell carcinoma on the area in Sep, 2020 done by a inlayer silver. He had a nonhealing wound after that. He said that he had been following with [facility] and appeared to have an artificial graft placed on the area. He says that he had good improvement of the wound and he had not seen the Wound Clinic since late last year. However he had noticed recurrence of the open wound about several weeks now along with redness. He says he this may have been cause of this being irritated by his pants. He was referred to me by Dr. Pang. [facility] Medical History (Updated 12/23/22 @ 16:29 by Fran Valle MD) Cataract Chronic wound Non-rheumatic aortic stenosis NSTEMI (non-ST elevated myocardial infarction) PAF (paroxysmal atrial fibrillation) Wears dentures Surgical History History of right hip replacement (~2010) Hx of appendectomy Hx of basal cell carcinoma excision Hx of colonoscopy Family History Father No problems noted. Mother No problems noted. Social History Do you presently have visiting nurse or other home services: Yes ([facility] 2x week changes dressing on right lower leg s/p skin ca excision) Patient Tobacco Use Status: Former Tobacco user Quit Date: Review of Systems Const Denies chills and Denies fever(s) Card Denies chest pain, Denies dyspnea and Reports dyspnea on exertion Resp Denies cough, Denies dyspnea and Reports dyspnea on exertion GI Denies hematochezia and Denies change in bowel habits Denies hematuria and Denies difficulty urinating Musc Denies back pain and Denies limited range of motion Neuro Denies focal weakness and Denies convulsions Psych Denies depression and Denies mood swings Physical Exam Vital Signs: Last Vital Signs Pulse 79 12/23/22 14:19 BP 142/64 H 12/23/22 14:19 Const General: comfortable and no acute distress Orientation/consciousness: patient oriented x3 Neck Neck: Yes no lymphadenopathy Resp Auscultation: clear to auscultation bilaterally Cardio Other: Irregular heart rhythm Rhythm: regular rhythm GI Palpation (GI): Soft to palpation, nontender and no guarding Neuro General: patient oriented x3 Extrem Other: Open wound, right anterior lower leg circular, about 2.4 cm in diameter, with thin eschar, dry, some chronic stasis changes on the right lower leg Assessment & Plan Assessment & Plan (1) Chronic wound: Code(s): T14.8XXA - Other injury of unspecified body region, initial encounter Plan: He has a chronic wound on his leg as described above. He has had this since he had excision of a basal cell carcinoma 2 years ago but this had improved when he was being taken care of by the [facility]. This has since recurred about a few months ago. I will send him to the Wound Clinic. He may need debridement of this but I will let him be re-evaluated by the Wound Clinic first. I will follow-up on the recommendations of the wound center. He understands the plan and is comfortable with this. I have wrapped the wound with dry gauze and Angela roll. Coding Level of Care Code New Pt Level 3 (95326) Diagnoses Chronic wound T14.8XXA
== END 2022-12-23 16:49 | disposition home or self-care (01) ==
PROVIDERS: PCP Internal Medicine; Visit Provider Surgery
DX: T14.8XXA Other injury of unspecified body region, initial encounter (principal)
CPT/HCPCS: 99203

== ENCOUNTER → 2022-12-23 14:08 | Outpatient (BNVA) | payer MEDICARE, OTHER, SELFPAY | PROVIDERS: PCP Internal Medicine; Visit Provider Surgery | DX: S81.801A Unspecified open wound, right lower leg, initial encounter (principal) | CPT/HCPCS: 99202 ==

== ENCOUNTER 2022-12-26 08:40 | Outpatient (RCR) | payer MEDICARE, OTHER, SELFPAY | END 2023-03-27 06:59 | disposition home or self-care (01) | LOC: HO.WCC 08:40 | PROVIDERS: PCP Internal Medicine; Visit Provider Surgery | DX: I87.311 Chronic venous hypertension (idiopathic) with ulcer of right lower extremity (principal); L97.812 Non-pressure chronic ulcer of other part of right lower leg with fat layer exposed; I73.89 Other specified peripheral vascular diseases; L23.1 Allergic contact dermatitis due to adhesives; Z79.01 Long term (current) use of anticoagulants; Z79.899 Other long term (current) drug therapy; Z87.891 Personal history of nicotine dependence | CPT/HCPCS: 11042; 11043; 15271; 99212; 99213; Q4187 ==

== ENCOUNTER 2023-03-12 16:26 | Outpatient (REF) | payer MEDICARE, OTHER, SELFPAY ==
--- NOTE | ~2023-03-12 | XR_ITS ---
EXAMINATION: XR HIP, LEFT CLINICAL INFORMATION: Left hip pain COMPARISON: None available. TECHNIQUE: Two views of the left hip. FINDINGS: Degenerative changes on limited views of the left hip. Bones are diffusely demineralized. Extensive vascular calcifications. Moderate degenerative changes left hip with joint space narrowing and hypertrophic spurring. XR/XR hip LT min 2V IMPRESSION: Moderate degenerative changes left hip. Additional imaging with CT scan or MRI should be considered for better visualization as these modalities are much more sensitive for detection of fracture or other underlying pathology.
== END 2023-03-12 16:27 | disposition home or self-care (01) ==
LOC: HO.XRAY 16:26
PROVIDERS: PCP Internal Medicine; Visit Provider Internal Medicine
DX: M25.552 Pain in left hip (principal)
CPT/HCPCS: 73502

== ENCOUNTER 2023-07-23 13:40 | Outpatient (AMB) | payer MEDICARE, OTHER, SELFPAY ==
--- NOTE | 2023-07-23 13:43 | MHC.OFFVIS ---
Intake Vital Signs 07/23/23 13:44 Height 5 ft 11 in Weight 202 lb 6.15 oz BMI 28.2 BP 130/60 Blood Pressure Location Lt brachial Position Sitting Pulse 66 Intake Visit Reasons: 1 year fu Intake Note: 1 year follow up w/ EKG Rn Pain Management Required: No Accompanied by: Son Allergies No Known Allergies [No Known Allergies*] Allergy (Verified 07/23/23 13:49) Medication List - Last Reconciled 07/23/23 by Paxton Rasheed MD metoprolol succinate ER (Toprol XL) 50 mg PO DAILY rivaroxaban (Xarelto) 20 mg PO DAILY tamsulosin 0.4 mg PO QPM HPI HPI Comments History of Present Illness Details Fabio returns for follow-up regarding atrial fibrillation. Has a history of paroxysmal atrial fibrillation and was on metoprolol and Xarelto. He came for routine colonoscopy and at that time, had atrial fibrillation with rapid rate. We had planned a cardioversion but he converted back to sinus by himself. Then he was put on amiodarone. Over time, it was cut back and then stopped completely. Now remains only on beta-blockers. In a prior appointment, he was back in atrial fibrillation rapid rate. Then after increasing the beta-blockers he is back to sinus rhythm. Patient states that he is overall doing fine. No complaints like angina or shortness of breath or in fact anything cardiac sounding. Son is also here for the appointment. [facility] Medical History (Updated 12/23/22 @ 16:29 by Fran Valle MD) Chronic wound Wears dentures Cataract Non-rheumatic aortic stenosis NSTEMI (non-ST elevated myocardial infarction) PAF (paroxysmal atrial fibrillation) Surgical History Hx of basal cell carcinoma excision Hx of appendectomy Hx of colonoscopy History of right hip replacement (~2010) Family History Father No problems noted. Mother No problems noted. Social History Do you presently have visiting nurse or other home services: Yes ([facility]NA 2x week changes dressing on right lower leg s/p skin ca excision) Patient Tobacco Use Status: Former Tobacco user Quit Date: Review of Systems Const Denies weakness ENT Denies dizziness Card Denies chest pain, Denies chest pain with activity, Denies syncope, Denies rapid heart rate, Denies pedal edema, Denies edema, Denies leg edema, Denies lightheadedness, Denies palpitations, Denies dyspnea, Denies dyspnea on exertion and Denies orthopnea Resp Denies cough, Denies dyspnea and Denies dyspnea on exertion GI Denies hematochezia and Denies change in stool character Musc Denies abnormal gait, Denies muscle cramps, Denies muscle weakness, Denies numbness, Denies radiating pain into limb and Denies tingling Neuro Denies abnormal gait, Denies dizziness, Denies syncope, Denies numbness, Denies tingling and Denies weakness Endo Denies palpitations Physical Exam Vital Signs: Last Vital Signs Pulse 66 07/23/23 13:44 BP 130/60 07/23/23 13:44 BMI result Body Mass Index 28.2 Const General: comfortable and no acute distress Orientation/consciousness: patient oriented x3 HEENT Other: Unremarkable Head: Yes normal to inspection Neck Neck: Yes normal visual inspection Chest Chest palpation & inspection: normal inspection of the chest Resp Auscultation: clear to auscultation bilaterally Cardio Palpation: normal PMI Heart sounds: S1 normal heart sound present, S2 normal heart sound present, no gallops, Murmur heart sound present systolic II/ and at the right sternal border and no rubs GI Palpation (GI): Soft to palpation Back/Spine/Pelvis Other: unremarkable Skin General skin exam: no rashes or lesions noted Neuro General: patient oriented x3 Extrem General: Yes normal to inspection Psych Mental Status: mental status grossly normal Office Procedures EKG Details: EKG with sinus rhythm at 66/Min; voltage criteria for LVH; [place] [id number], Complete Assessment & Plan Assessment & Plan (1) PAF (paroxysmal atrial fibrillation): Code(s): I48.0 - Paroxysmal atrial fibrillation Plan: Continue beta-blockers and anticoagulation. Stable. No recent issues. (2) Non-rheumatic aortic stenosis: Code(s): I35.0 - Nonrheumatic aortic (valve) stenosis Plan: In the recent echocardiogram, mild aortic stenosis. LVEF is preserved at 60-65%. Can be followed periodically. Plan Discussed with son who came for appointment. Labs ordered due to anticoagulation use. Total time spent including review of data, counseling, documentation, coordination of care-31 min. Orders: Orders Complete Blood Count no Diff Today I48.0 - Paroxysmal atrial fibrillation Comprehensive Met. Panel Today I48.0 - Paroxysmal atrial fibrillation Coding Level of Care Code Est Pt Level 4 (34699) Diagnoses PAF (paroxysmal atrial fibrillation) I48.0 Non-rheumatic aortic stenosis I35.0 CPT Codes EKG - CPT: [id number]-[id number], Complete ([id number])
[2023-07-23 13:44] VITALS: BP 130/60; PULSE 66; BMI 28.2
== END 2023-07-23 14:09 | disposition home or self-care (01) ==
PROVIDERS: PCP Internal Medicine; Visit Provider Internal Medicine
DX: I48.0 Paroxysmal atrial fibrillation (principal); I35.0 Nonrheumatic aortic (valve) stenosis
CPT/HCPCS: 93010; 99214

== ENCOUNTER 2023-07-23 13:40 | Outpatient (REF) | payer MEDICARE, OTHER, SELFPAY ==
[2023-07-23 15:20] LABS: Hematocrit 42.7 % (42.0-52.0); Hemoglobin 14.6 g/dl (14.0-18.0); Mean Corpuscular HGB Conc 34.2 g/dl (31.0-36.0); Mean Corpuscular Hemoglobin 31.4 pg (27.0-33.0); Mean Corpuscular Volume 91.8 fL (80.0-98.0); Mean Platelet Volume 9.9 fL (9.4-12.4); Platelet Count 212 X10*3/uL (160-400); Red Blood Count 4.65 X10*6/uL (4.60-5.80); Red Cell Distribution Width 13.3 % (11.0-16.0)
[2023-07-23 15:44] LABS: Alanine Aminotransferase 15 U/L (0-40); Albumin Level 4.2 g/dL (3.5-5.0); Alkaline Phosphatase 68 U/L (39-117); Anion Gap 14 (12-20); Aspartate Amino Transferase 16 U/L (5-37); Bilirubin Total 0.7 mg/dL (0.0-1.0); Blood Urea Nitrogen 25 mg/dL (9-16); Calcium 9.1 mg/dL (8.4-10.2); Carbon Dioxide 25 mmol/L (22-29); Chloride 105 mmol/L (96-108); Estimated Glomerular Filt Rate > 60; Glucose Random 119 mg/dL (60-115); Potassium 4.3 mmol/L (3.3-5.1); Sodium 140 mmol/L (135-145); Total Protein 6.9 g/dL (6.5-8.0)
== END 2023-07-23 13:41 | disposition home or self-care (01) ==
LOC: HO.LAB 13:40
PROVIDERS: PCP Internal Medicine; Visit Provider Internal Medicine
DX: I48.0 Paroxysmal atrial fibrillation (principal); I35.0 Nonrheumatic aortic (valve) stenosis
CPT/HCPCS: 36415; 80053; 85027; 93005; 99212

== ENCOUNTER 2023-12-19 10:51 | Emergency (ER) | payer MEDICARE, OTHER, SELFPAY ==
--- NOTE | ~2023-12-19 | XR_ITS ---
EXAMINATION: XR CHEST CLINICAL INFORMATION: Shortness of breath. Chest pain. COMPARISON: July 18, 2022 TECHNIQUE: 2 views of the chest were obtained. FINDINGS: The lungs are hyperexpanded. Biapical scarring. No focal consolidation. No pleural effusion. Cardiac silhouette is unchanged. XR/XR chest 2V IMPRESSION: No acute abnormality. Electronically signed by: David Gutierrez MD 02/06/2024 09:27 AM EDT
[2023-12-19 10:54] VITALS: BP 113/66; PULSE 77; RESP 17; TEMP 36.6; O2SAT 97; BMI 26.9
--- NOTE | 2023-12-19 10:58 | ECG_ITS ---
Test Reason : CHEST PAIN Blood Pressure : / mmHG Vent. Rate : 067 BPM Atrial Rate : 067 BPM P-R Int : 162 ms QRS Dur : 088 ms QT Int : 376 ms P-R-T Axes : 043 -21 047 degrees QTc Int : 397 ms Normal sinus rhythm Normal ECG When compared with ECG of 07-DEC-2018 08:48, Premature atrial complexes are no longer Present Referred By: Generic ED Physician Electronically Signed By:MONICA ALEXANDER MD
--- NOTE | 2023-12-19 11:02 | ED.GENADULT ---
HPI - General Adult General Chief complaint: Arrhythmia/Palpitations Stated complaint: SOB Time Seen by Provider: 12/19/23 13:00 History of Present Illness ED Provider: Cyndy [facility] narrative: The patient is an 83-year-old male with a history of paroxysmal atrial fibrillation. He is on metoprolol and rivaroxaban. The patient says that he woke up this morning and felt palpitations consistent with atrial fibrillation. He also felt somewhat winded. He called his doctor to see if he could get into see his regular doctor and he was advised to come to the emergency department. By the time he got here the sense of palpitations had resolved. Overall he was feeling better. The patient also notes that he has a wound on his left lower leg that he has had for a few months. He says that it started as a biopsy done by a plate shop helper. He says that he subsequently developed redness at the site of the biopsy and he 1st was on some oral antibiotics. It was not clear if he was getting better. He was then placed on topical mupirocin which he is currently doing. He says that the wound has been bothering him for about 2 months and he thinks there is probably some slight increased redness recently despite the mupirocin. No fever, sweats, chills. Related Data Home Medications ?Medication ?Instructions ?Recorded ?Confirmed tamsulosin 0.4 mg capsule 0.4 mg PO QPM 01/30/22 07/23/23 Previous Rx's ?Medication ?Instructions ?Recorded rivaroxaban 20 mg tablet (Xarelto) 20 mg PO DAILY #90 tabs 08/19/22 metoprolol succinate 50 mg 50 mg PO DAILY #90 tabs 11/03/23 tablet,extended release 24 hr (Toprol XL) doxycycline monohydrate 100 mg 100 mg PO BID #20 caps 12/19/23 capsule mupirocin 2 % topical ointment 1 appl topical BID #22 grams 12/19/23 Allergies Allergy/AdvReac Type Severity Reaction Status Date / Time No Known Allergies Allergy Verified 12/19/23 10:56 [No Known Allergies*] Review of Systems Review of Systems: Yes all other systems are reviewed and are negative PMFSH Past Medical History Medical History (Updated 12/19/23 @ 15:04 by Paulo Naylor MD) Chronic wound Wears dentures Cataract Non-rheumatic aortic stenosis NSTEMI (non-ST elevated myocardial infarction) PAF (paroxysmal atrial fibrillation) Surgical History Hx of basal cell carcinoma excision Hx of appendectomy Hx of colonoscopy History of right hip replacement (~2010) Family History Family History Father No problems noted. Mother No problems noted. Social History Social History Do you presently have visiting nurse or other home services: Yes (VNA 2x week changes dressing on right lower leg s/p skin ca excision) Patient Tobacco Use Status: Former Tobacco user Smoked in Last 30 Days: No Use of substances other than those prescribed or required for medical reasons: No Advance Directives: No Advance Directives Information Provided: No Do you have a plan to hurt others: No Plan Physical Exam ED Vital Signs: Vital Signs - 24 hr 12/19/23 10:54 12/19/23 12:51 12/19/23 13:30 Temperature 98 F Pulse Rate 77 59 64 Respiratory Rate 17 15 18 Blood Pressure 113/66 122/55 L 119/52 L Pulse Oximetry 97 100 100 Oxygen Delivery Method Room Air Room Air Room Air BMI result Body Mass Index 26.9 Const Other: The patient is a somewhat chronically ill-appearing 83-year-old. He seems quite frail. He does not seem in any acute distress however. HENMT Other: Face is symmetrical. Mucous membranes moist. Eyes Other: Pupils are round equal, conjunctivae clear Neck Other: No JVD. Resp Effort & Inspection: normal respiratory effort Auscultation: clear to auscultation bilaterally Cardio Jugular venous distension: no JVD Rate: regular rate Rhythm: regular rhythm Heart sounds: S1 normal heart sound present and S2 normal heart sound present GI Other: Abdomen is soft and nontender Skin Other: The patient has a wound in the left lower leg anteriorly. The wound is associated with some erythema. Neuro Other: The patient is awake and alert. Face is symmetrical. Speech is clear. He moves his extremities symmetrically. No lateralizing finding. The patient is grossly neurologically intact. Extrem Other: The patient has some mild edema to both lower legs. This is more prominent and more pitting on the left lower leg near the ankle, below an area of erythema surrounding a wound on the malhotra. Course Course Course Narrative: This is an RME performed by Arnoldo Mondragon CNP: Additional HPI, ROS, PE not included below will be deferred to primary provider. Patient is an 83-year-old male who presents emergency department for evaluation of palpitations and shortness breath felt upon awakening this morning. He reports that he fell back asleep and upon waking again he felt somewhat better but not quite himself. Reports compliance with his medications. Plan: Labs, EKG, viral panel Medical Decision Making Medical Decision Making MDM Narrative: The patient presented to the emergency room because he had an episode of palpitations today associated with shortness of breath. By the time he got to the emergency room he was feeling better and he is in a normal sinus rhythm. I suspect that he had an episode of paroxysmal atrial fibrillation which caused him to feel more short of breath than usual. He does not have any sign of heart failure on his chest x-ray. I do not think he requires hospitalization or further evaluation for his atrial fibrillation today. A secondary issue with this patient is a wound on his left lower leg that seems somewhat subacute. This all started as a biopsy from a plate shop helper apparently. He has been applying mupirocin. He feels the redness around the wound is getting worse. He will be started on a course of doxycycline. He has been applying the mupirocin only once a day. He is advised to increase this to 2 times a day. I have sent a prescription for additional mupirocin as well. He should contact the [facility] and try to get a follow up appointment next week for another opinion about this wound. Lab Data 12/19/23 11:27 12/19/23 11:27 Labs: Lab Results 12/19/23 12/19/23 Range/Units 11:27 13:30 WBC 5.3 (4.8-10.8) X10*3/uL RBC 4.58 L (4.60-5.80) X10*6/uL Hgb 14.6 (14.0-18.0) g/dl Hct 42.5 (42.0-52.0) % MCV 92.8 (80.0-98.0) fL MCH 31.9 (27.0-33.0) pg MCHC 34.4 (31.0-36.0) g/dl RDW 12.9 (11.0-16.0) % Plt Count 225 (160-400) X10*3/uL MPV 9.5 (9.4-12.4) fL Immature Gran % (Auto) 0.2 (0.0-0.4) % Neut % (Auto) 57.8 (45-73) % Lymph % (Auto) 29.0 (20-40) % [place] % (Auto) 10.1 (2-11) % Eos % (Auto) 2.3 (0-4) % Baso % (Auto) 0.6 (0-2) % Lymph # (Auto) 1.5 (1.2-4.9) X10*3/uL [place] # (Auto) 0.5 (0.1-1.2) X10*3/uL Eos # (Auto) 0.1 (0.0-0.4) X10*3/uL Baso # (Auto) 0.0 (0.0-0.2) X10*3/uL Abs Immat Gran (auto) 0.01 (0.00-0.03) X10*3/uL Absolute Neuts (auto) 3.0 (2.0-8.3) x10*3/uL Absolute Nucleated RBC 0.000 (0.0-0.012) X10*3/uL Nucleated RBC % (auto) 0.0 (0.0-0.2) /100WBC PT 17.8 H (11.1-13.3) SEC INR 1.5 H (0.9-1.1) Sodium 140 (135-145) mmol/L Potassium 4.3 (3.3-5.1) mmol/L Chloride 109 H (96-108) mmol/L Carbon Dioxide 22 (22-29) mmol/L Anion Gap 13 (12-20) BUN 27 H (9-16) mg/dL Creatinine 1.11 (0.5-1.4) mg/dL Estim Creat Clear Calc 53.8 Estimated GFR > 60 Random Glucose 125 H (60-115) mg/dL Calcium 9.5 (8.4-10.2) mg/dL Total Bilirubin 0.8 (0.0-1.0) mg/dL Direct Bilirubin 0.3 (0.0-0.5) mg/dL AST 14 (5-37) U/L ALT 11 (0-40) U/L Alkaline Phosphatase 67 (39-117) U/L Troponin I High Sens 17.0 21.8 (<3.5-35.0) ng/L B-Natriuretic Peptide 294 H (<100) pg/mL Total Protein 6.7 (6.5-8.0) g/dL Albumin 4.1 (3.5-5.0) g/dL Influenza Type A (PCR) NEGATIVE (Negative) Influenza Type B (PCR) NEGATIVE (Negative) RSV RNA Qual (PCR) NEGATIVE (Negative) SARS-CoV-2 RNA (RT-PCR) NEGATIVE (Negative) Independent Interpretation I performed an independent interpretation of an: EKG Interpretation: EKG at 11:07 shows normal sinus rhythm at 67 beats per minute. It is a normal EKG. Discharge Plan Discharge Clinical Impression: Palpitations, Paroxysmal atrial fibrillation, Shortness of breath, Wound of left lower extremity Patient Disposition: Home, Self-Care Additional Instructions: I suspect that you had an episode of atrial fibrillation this morning. You seem to have returned to a normal rhythm at this point. There is no sign of any heart failure on your x-ray. Please continue your regular medications for your atrial fibrillation including your metoprolol and your rivaroxaban. With regard to the wound on your left malhotra please apply mupirocin 2 times a day. I have some concern about the worsening redness and I have also prescribed a course of oral antibiotics, doxycycline. Please take this medication 2 times a day. Please contact the wound clinic today to set up an appointment for a recheck of your wound next week. Also follow up with your regular doctor. Return to the emergency room if worse. Prescriptions: New mupirocin 2 % ointment 1 appl topical BID Qty: 22 0RF doxycycline monohydrate 100 mg capsule 100 mg PO BID Qty: 20 0RF No Action Xarelto 20 mg tablet 20 mg PO DAILY Qty: 90 3RF metoprolol succinate [Toprol XL] 50 mg tablet extended release 24 hr 50 mg PO DAILY Qty: 90 3RF tamsulosin 0.4 mg capsule 0.4 mg PO QPM Referrals: [facility] [Outside] (Left malhotra wound) Fran Pang MD [Primary Care Provider] - (Atrial fibrillation, left malhotra wound) Print Language: Greek
[2023-12-19 11:32] LABS: MANUAL DIFF FLAG NO
[2023-12-19 11:34] LABS: Basophils Percent Auto 0.6 % (0-2); Eosinophils Absolute Auto 0.1 X10*3/uL (0.0-0.4); Eosinophils Percent Auto 2.3 % (0-4); Hematocrit 42.5 % (42.0-52.0); Hemoglobin 14.6 g/dl (14.0-18.0); Imm Gran Abs Auto 0.01 X10*3/uL (0.00-0.03); Imm Gran Pct Auto 0.2 % (0.0-0.4); Lymphocytes Absolute Auto 1.5 X10*3/uL (1.2-4.9); Mean Corpuscular HGB Conc 34.4 g/dl (31.0-36.0); Mean Corpuscular Hemoglobin 31.9 pg (27.0-33.0); Mean Corpuscular Volume 92.8 fL (80.0-98.0); Mean Platelet Volume 9.5 fL (9.4-12.4); Monocytes Absolute Auto 0.5 X10*3/uL (0.1-1.2); Monocytes Percent Auto 10.1 % (2-11); Neutrophils Percent Auto 57.8 % (45-73); Platelet Count 225 X10*3/uL (160-400); Red Blood Count 4.58 X10*6/uL (4.60-5.80); Red Cell Distribution Width 12.9 % (11.0-16.0); White Blood Count 5.3 X10*3/uL (4.8-10.8)
[2023-12-19 11:41] LABS: INTERNATIONAL NORM RATIO 1.5 (0.9-1.1); Prothrombin Time 17.8 SEC (11.1-13.3)
[2023-12-19 11:54] LABS: Alanine Aminotransferase 11 U/L (0-40); Anion Gap 13 (12-20); Aspartate Amino Transferase 14 U/L (5-37); Bilirubin Direct 0.3 mg/dL (0.0-0.5); Bilirubin Total 0.8 mg/dL (0.0-1.0); Blood Urea Nitrogen 27 mg/dL (9-16); Calcium 9.5 mg/dL (8.4-10.2); Carbon Dioxide 22 mmol/L (22-29); Chloride 109 mmol/L (96-108); Creatinine Clr Calc Pharmacy 53.8; Estimated Glomerular Filt Rate > 60; Glucose Random 125 mg/dL (60-115); Potassium 4.3 mmol/L (3.3-5.1); Sodium 140 mmol/L (135-145); Total Protein 6.7 g/dL (6.5-8.0)
[2023-12-19 11:55] LABS: Albumin Level 4.1 g/dL (3.5-5.0); Alkaline Phosphatase 67 U/L (39-117)
[2023-12-19 12:09] LABS: B Type Natriuretic Peptide 294 pg/mL (<100)
[2023-12-19 12:51] VITALS: BP 122/55; PULSE 59; RESP 15; O2SAT 100
--- NOTE | 2023-12-19 12:59 | PC.NURSE ---
Pt comes to ED today on his own with complaints of palpitations he woke up with. States he has a history of Afib, therefore called his PCP but was unable to see that provider. VSS at this time. Pt is A&Ox3 He states palpitations come and go and he is currently without them. Denies pain. Blood work sent. EKG ordered. Awaiting results and ED provider eval.
[2023-12-19 13:20] LABS: Influenza A PCR NEGATIVE (Negative); Influenza B PCR NEGATIVE (Negative); Resp Syncy Virus RNA Qual PCR NEGATIVE (Negative); SARS COV2 PCR INHOUSE NEGATIVE (Negative)
[2023-12-19 13:30] VITALS: BP 119/52; PULSE 64; RESP 18; O2SAT 100
[2023-12-19 14:08] LABS: Troponin-I High Sensitivity 21.8 ng/L (<3.5-35.0)
[2023-12-19] MEDS: Doxycycline Monohydrate 100 MG CAPSULE PO (15:17)
[2023-12-19 15:25] VITALS: BP 127/62; PULSE 66; RESP 15; TEMP -17.7; TEMP 0; O2SAT 99
== END 2023-12-19 15:27 | disposition home or self-care (01) ==
PROVIDERS: Emergency Provider Emergency Medicine; PCP Internal Medicine
DX: R00.2 Palpitations (principal); I48.0 Paroxysmal atrial fibrillation; R60.0 Localized edema; R06.02 Shortness of breath; S81.802D Unspecified open wound, left lower leg, subsequent encounter; X58.XXXD Exposure to other specified factors, subsequent encounter; Z03.818 Encounter for observation for suspected exposure to other biological agents ruled out; Z79.01 Long term (current) use of anticoagulants
CPT/HCPCS: 0241U; 36415; 71046; 80048; 80076; 83880; 84484; 85025; 85610; 87070; 87077; 87186; 87205; 93005; 99283; 99285

== ENCOUNTER → 2023-12-19 10:58 | Outpatient (BNV) | payer MEDICARE, OTHER, SELFPAY | PROVIDERS: Emergency Provider Emergency Medicine; PCP Internal Medicine; Visit Provider Internal Medicine Cardiovascular Disease | DX: R07.9 Chest pain, unspecified (principal) | CPT/HCPCS: 93010 ==

== ENCOUNTER 2024-03-22 16:21 | Outpatient (REF) | payer MEDICARE, OTHER, SELFPAY ==
[2024-03-22 17:19] LABS: Blood Urea Nitrogen 25 mg/dL (9-16); Estimated Glomerular Filt Rate > 60
== END 2024-03-22 16:22 | disposition home or self-care (01) ==
LOC: HO.LAB 16:21
PROVIDERS: PCP Internal Medicine; Visit Provider Radiology Vascular & Interventional Radiology
DX: R79.9 Abnormal finding of blood chemistry, unspecified (principal); R94.4 Abnormal results of kidney function studies
CPT/HCPCS: 36415; 82565; 84520

== ENCOUNTER 2024-04-05 11:49 | Outpatient (REF) | payer MEDICARE, OTHER, SELFPAY ==
[2024-04-05 13:36] LABS: Estimated Average Glucose 111 mg/dL; Hemoglobin A1C 119.1691 umol/L; Hemoglobin A1c % 5.5 % (<6.0); Total Hemoglobin (HGBA1C) 3216.6004 umol/L
[2024-04-05 14:20] LABS: Anion Gap 11 (12-20); Blood Urea Nitrogen 20 mg/dL (9-16); Calcium 9.2 mg/dL (8.4-10.2); Carbon Dioxide 22 mmol/L (22-29); Chloride 109 mmol/L (96-108); Estimated Glomerular Filt Rate > 60; Glucose Random 95 mg/dL (60-115); Potassium 4.1 mmol/L (3.3-5.1); Sodium 138 mmol/L (135-145)
== END 2024-04-05 11:50 | disposition home or self-care (01) ==
LOC: HO.LAB 11:49
PROVIDERS: PCP Internal Medicine; Visit Provider Internal Medicine
DX: R73.03 Prediabetes (principal)
CPT/HCPCS: 36415; 80048; 83036

== ENCOUNTER 2024-07-27 12:58 | Outpatient (AMB) | payer MEDICARE, OTHER, SELFPAY ==
--- NOTE | 2024-07-27 13:01 | MHC.OFFVIS ---
Vital Signs 07/27/24 13:05 Height 5 ft 10 in Weight 178 lb 9.191 oz BMI 25.6 BP 100/52 L Blood Pressure Location Rt brachial Position Sitting Pulse 65 Pulse Source Monitor Intake Visit Reasons: 1yr f/u r/s fr 07/15 and 07/21 Quality Control Operator Required: No Accompanied by: Daughter Allergies No Known Allergies [No Known Allergies*] Allergy (Verified 12/19/23 10:56) Medication List - Last Reconciled 07/27/24 by Paxton Rasheed MD metoprolol succinate ER (Toprol XL) 50 mg PO DAILY rivaroxaban (Xarelto) 20 mg PO DAILY tamsulosin 0.4 mg PO QPM HPI Comments Details: Fabio returns for follow-up regarding atrial fibrillation. Has a history of paroxysmal atrial fibrillation and was on metoprolol and Xarelto. He came for routine colonoscopy and at that time, had atrial fibrillation with rapid rate. We had planned a cardioversion but he converted back to sinus by himself. Then he was put on amiodarone. Over time, it was cut back and then stopped completely. Now remains only on beta-blockers. In a prior appointment, he was back in atrial fibrillation rapid rate. Then after increasing the beta-blockers he is back to sinus rhythm. Otherwise, main complaint these days is knee pain. He states that he is having severe knee pains. Apparently the he cannot get surgery because of lower extremity wounds. That is what is bothering him the most. No cardiac symptoms. Daughter is also here for the appointment. [facility] Medical History (Updated 07/27/24 @ 14:13 by Paxton Rasheed MD) Chronic wound Wears dentures Cataract Non-rheumatic aortic stenosis NSTEMI (non-ST elevated myocardial infarction) PAF (paroxysmal atrial fibrillation) Surgical History Hx of basal cell carcinoma excision Hx of appendectomy Hx of colonoscopy History of right hip replacement (~2010) Family History Father No problems noted. Mother No problems noted. Social History Do you presently have visiting nurse or other home services: Yes (VNA 2x week changes dressing on right lower leg s/p skin ca excision) Patient Tobacco Use Status: Former Tobacco user Review of Systems Const Denies chills, Denies fatigue, Denies fever(s), Denies frequent falls, Denies weakness, Denies weight gain and Denies weight loss ENT Denies dizziness Card Denies chest pain, Denies leg edema, Denies lightheadedness, Denies palpitations, Denies dyspnea and Denies dyspnea on exertion Resp Denies cough, Denies dyspnea and Denies dyspnea on exertion GI Denies hematochezia Musc Denies abnormal gait, Denies muscle weakness, Denies numbness, Denies radiating pain into limb and Denies tingling Neuro Denies abnormal gait, Denies dizziness, Denies frequent falls, Denies numbness, Denies tingling and Denies weakness Endo Denies fatigue and Denies palpitations Physical Exam Vital Signs: Last Vital Signs Pulse 65 07/27/24 13:05 BP 100/52 L 07/27/24 13:05 BMI result Body Mass Index 25.6 Const General: comfortable and no acute distress Orientation/consciousness: patient oriented x3 HEENT Other: Unremarkable Head: Yes normal to inspection Neck Neck: Yes normal visual inspection Chest Chest palpation & inspection: normal inspection of the chest Resp Auscultation: clear to auscultation bilaterally Cardio Palpation: normal PMI Heart sounds: S1 normal heart sound present, S2 normal heart sound present, no gallops, Murmur heart sound present systolic II/ and at the right sternal border and no rubs GI Palpation (GI): Soft to palpation Back/Spine/Pelvis Other: unremarkable Skin General skin exam: no rashes or lesions noted Neuro General: patient oriented x3 Extrem General: Yes normal to inspection Psych Mental Status: mental status grossly normal Office Procedures EKG Details: EKG with sinus rhythm at 65/Min; voltage criteria for LVH; [place]. [id number]-[id number], Complete Assessment & Plan Assessment & Plan (1) PAF (paroxysmal atrial fibrillation): Code(s): I48.0 - Paroxysmal atrial fibrillation Category: Medical Plan: Continue beta-blockers and anticoagulation. (2) Non-rheumatic aortic stenosis: Code(s): I35.0 - Nonrheumatic aortic (valve) stenosis Category: Medical Plan: In the last echocardiogram from 2021, mild aortic stenosis. LVEF is preserved at 60-65%. Can be followed periodically. (3) Knee pain: Code(s): M25.569 - Pain in unspecified knee Category: Medical Plan: We discussed about issues with NSAIDs due to increased bleeding risk as he is also taking Xarelto. He does get steroid injections intermittently. Apparently cannot get surgery because of the wound issues in his legs. Hence recommend that he sees pain management. Patient and daughter agree. Orders: Orders CA echo transthoracic complete Today I35.0 - Nonrheumatic aortic (valve) stenosis Referrals Pain Management Referral M25.569 - Pain in unspecified knee Coding Level of Care Code Est Pt Level 4 (38685) Complex EM visit Add On G2211 Diagnoses PAF (paroxysmal atrial fibrillation) I48.0 Non-rheumatic aortic stenosis I35.0 Knee pain M25.569 CPT Codes EKG - CPT: 58587-[id number], Complete ([id number])
[2024-07-27 13:05] VITALS: BP 100/52; PULSE 65; BMI 25.6
--- OUTSIDE RECORDS SUMMARY | 2024-07-27 15:49 | XMS_ITS | Clinical Summary ---
Author Organization [facility] Address [address] [place] [address] Care Team Providers Care Chief Of Staff Doctor Name Role Phone Chase Hernandez MD Primary Care Provider Allergies No known active allergies Medications Medication Sig Dispensed Refills Start Date End Date Status fluticasone (FLONASE) 50 MCG/ACT nasal spray USE 2 SPRAYS INTO EACH NOSTRIL EVERY DAY 1 12/05/2016 Active metoprolol succinate (TOPROL-XL) 24 hr tablet 25 mg TAKE 1 TABLET EVERY DAY 3 01/03/2017 Active aspirin EC 81 MG tablet Take 81 mg by mouth daily. 0 Active rivaroxaban (XARELTO) 20 MG TABS tablet Take 1 tablet by mouth. 0 06/26/2018 Active atorvastatin (LIPITOR) tablet 20 mg Take 20 mg by mouth daily. 3 11/02/2018 Active GAVILYTE-C 240 g solution TAKE DIRECTED OVER THE SPECIFIED TIME. ORALLY 1 DAY(S) 0 11/19/2018 Active tamsulosin (FLOMAX) 0.4 MG CAPS TAKE 1 CAPSULE BY MOUTH IN THE EVENING 0 10/15/2019 Active predniSONE (DELTASONE) tablet 20 mg Take 3 tabs for 3 days then take 2 tabs for 3 days then take 1 tab for 3 days 18 tablet 0 08/18/2020 Active metoprolol succinate (TOPROL-XL) 24 hr tablet 50 mg Take 1 tablet by mouth daily. 0 07/01/2018 Active amoxicillin (AMOXIL) 500 MG capsule TAKE 4 CAPSULES 1 HOUR PRIOR TO DENTAL APPOITMENT 20 capsule 2 12/06/2020 Active Active Problems Problem Noted Date Diagnosed Date Closed compression fracture of body of L1 verteb ra 08/31/2020 Closed compression fracture of L3 lumbar vertebr a, sequela 08/31/2020 Spinal stenosis at L4-L5 level 08/31/2020 Skin lesion of right lower extremity 01/20/2020 Right shoulder injury 03/11/2018 Hip injury, right, subsequent encounter 03/11/20 18 Chronic left shoulder pain 03/14/2017 Chronic pain of both knees 03/14/2017 Primary osteoarthritis of both knees 03/11/2017 Family History Medical History Relation Name Comments Diabetes Mother Relation Name Status Comments Mother Social History Tobacco Use Types Packs/Day Years Used Date Smoking Tobacco: Never Assessed Sex and Gender Information Value Date Recorded Sex Assigned at Not on file Gender Identity Not on file Sexual Orientation Not on file Job Start Date Occupation Industry Not on file Not on file Not on file Last Filed Vital Signs Vital Sign Reading Time Taken Comments Blood Pressure - - Pulse - - Temperature - - Respiratory Rate - - Oxygen Saturation - - Inhaled Oxygen Concentration - - Weight 90.7 kg (200 lb) 02/08/2022 8:26 AM EDT Height 195.6 cm (6' 5 ) 02/08/2022 8:26 AM EDT Body Mass Index 23.72 02/08/2022 8:26 AM EDT Plan of Treatment Health Maintenance Due Date Last Done Comments COVID-19 Vaccine (#1) 1942 Depression Screening 1954 Preventative Health Evaluation 1960 DTap / Tdap / Td (1 - Tdap) 1961 Shingrix-Zoster Vaccine (1 o f 2) 1992 Fall Risk Assessment 2007 Pneumococcal Vaccine (1 of 1 - PCV) 2007 RSV Adult > 60+ Yrs or (1 - 1-dose 75+ series) 2017 Influenza Vaccine (#1) 2024 0, 01/28/2019, 03/30/2018 Hepatitis B Vaccines Aged Out No long er eligible based on patient's age to complete this topic RSV Ped < 20 months Aged Out No longe r eligible based on patient's age to complete this topic Care Teams Chief Of Staff Doctor Relationship Specialty Start Date End Date Chase Hernandez MD [address] [place] [address] [address] [place] [address] PCP - General Dual Rate Dealer 02/05/17
--- OUTSIDE RECORDS SUMMARY | 2024-07-27 15:49 | XMS_ITS | Clinical Summary ---
Author Organization [employer] Address [address] [facility] [address] [place] [address] Care Team Providers Care Pharmacy Technician Program Director Name Role Phone Unavailable Primary Care Provider Unavailabl e Social History Tobacco Use Types Packs/Day Years Used Date Smoking Tobacco: Never Assessed Sex and Gender Information Value Date Recorded Sex Assigned at Male 04/01/2022 10:24 AM EDT Legal Sex Male 10:24 AM EDT Gender Identity Choose not to disclose 10:24 AM EDT Sexual Orientation Choose not to disclose 2021 10:24 AM EDT Plan of Treatment Health Maintenance Due Date Last Done Comments Depression Screening 1942 Lipid Panel 1942 Alcohol/Substance Use Screening 1954 Tobacco Screening 1954 DTaP/Tdap/Td Vaccines (1 - Tdap) 1961 Pneumococcal Vaccine: 50+ Ye ars (1 of 1 - PCV) 1992 Zoster Vaccines (1 of 2) 1992 RSV Patients and Pa tients Aged 60 years or older (1 - 1-dose 75+ series) 2017 COVID-19 Vaccine ( - 2023-2 5 season) 2024 Influenza Vaccine (#1) 2024 HIB Vaccines Aged Out No longer eligi ble based on patient's age to complete this topic HPV Vaccines Aged Out No longer eligi ble based on patient's age to complete this topic Hepatitis A Vaccines Aged Out No long er eligible based on patient's age to complete this topic Hepatitis B Vaccines Aged Out No long er eligible based on patient's age to complete this topic IPV Vaccines Aged Out No longer eligi ble based on patient's age to complete this topic Meningococcal Vaccine Aged Out No varinder jovanna eligible based on patient's age to complete this topic RSV under 20 months Aged Out No longe r eligible based on patient's age to complete this topic Rotavirus Vaccines Aged Out No longer eligible based on patient's age to complete this topic
--- OUTSIDE RECORDS SUMMARY | 2024-07-27 15:49 | XMS_ITS | Encounter Summary ---
Author Organization [employer] Address [address] [facility] [address] [place] [address] Care Team Providers Care Certified Medicine Aide Name Role Phone Unavailable Primary Care Provider Unavailabl e Encounter Details Date Type Department Care Team (Latest Contact Info) Description 05/10/2019 Abstract [facility] Dental, Provider, DDS Social History Tobacco Use Types Packs/Day Years Used Date Smoking Tobacco: Never Assessed Sex and Gender Information Value Date Recorded Sex Assigned at Male 04/01/2022 10:24 AM EDT Legal Sex Male 10:24 AM EDT Gender Identity Choose not to disclose 10:24 AM EDT Sexual Orientation Choose not to disclose 2021 10:24 AM EDT documented as of this encounter Plan of Treatment Not on file documented as of this encounter Visit Diagnoses Not on filedocumented in this encounter
--- OUTSIDE RECORDS SUMMARY | 2024-07-27 15:49 | XMS_ITS | Continuity of Care Document ---
Author Name [facility] Organization [facility] Care Team Providers Care Sales Representative Graphic Art Name Role Phone [facility] Unavailable Unavailable Problems Combined list of problems from Department of Defense and Veterans Affairs facilities. It does not include entries that were removed or entered in error. Problem Status Onset Date Problem Type Date of Resolution Comments Source Atrial fibrillation Active Condition Jun 07, 2024 Entered By: ALONA VICTOR Comment: Dx in 1999-Teens; on Doag & B-BlkrJan 2024 Entered By: ALONA VICTOR Comment: Private Cardio Dr Rasheed [phone] [place] Basal cell carcinoma of skin Active Condition Jun 07 Entered By: ALONA VICTOR Comment: Excisions of Lesions Both Legs OCTOBER 23:Jun 07, 2024 Entered By: ALONA VICTOR Comment: Right Side +BCC; L Thigh Neg BCCJun 07, 2024 Entered By: ALONA VICTOR Comment: Residual Slowly Healing Wound L ThighJun 07, 2024 Entered By: ALONA VICTOR Comment[facility] Entered By: ALONA VICTOR Comment: 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 [facility] Benign prostatic hyperplasia Active Condition Jun 07, 2024 Entered By: ALONA VICTOR Comment: Mostly Has Nocturia [place] Doctor patient status Active Condition Jun 07, 2024 Entered By: ALONA VICTOR Comment: PCP DR Pang [phone] [place] H/O: osteoarthritis Active Condition Jun 07, 2024 Entered By: ALONA VICTOR Comment: s/p THR, R Side 2024 Entered By: ALONA VICTOR Comment: Severe Tcuv-zt-Dilg OA Both Knees as of Jun Entered By: ALONA VICTOR Comment: Has Seen Ortho for Knees: Possible Surg Candidate [place] Hypertension Active Condition Jun 07, 2024 Entered By: ALONA VICTOR Comment: h/o HTN; Not Treated for Such as of JUN 26 [place] Peripheral vascular disease Active Condition Jun 07 Entered By: ALONA VICTOR Comment: Both LE's; L > R Side; Has Aktm-qg-Vnnm Wound Left Thigh as of Jun Entered By: ALONA VICTOR Comment: Private Vascu Dr Ramos [phone] Anya [place] Diagnosis: ICD-10-CM I48.91 Unspecified atrial fibrillation Active Diagnosis [place] Medications Combined list of outpatient medications from [facility] facilities.Medications provided include 1) outpatient medications from the last 15 months, and 2) patient-reported medications. Medication Details Route Status Patient Instructions Prescription Expires Prescription Number Last Dispense Date Ordering Provider Order Date Order Qty Source METOPROLOL SUCCINATE TAB,SA TAKE BY MOUTH ONCE DAILY ORAL ACTIVE ESTRADA VICTOR 2024 [facility] IELD RIVAROXABAN 20MG TAB TAKE ONE TABLET BY MOUTH ONCE DAILY ORAL ACTIVE ESTRADA VICTOR [address]24 [facility] IETENA TAMSULOSIN HCL 0.4MG CAP TAKE 1 CAPSULE BY MOUTH ONCE DAILY ORAL ACTIVE ESTRADA VICTOR [address] [facility] IELD Vital Signs Combined list of inpatient and outpatient Vital Signs from [facility], ranging from 12 months to all on record, depending upon the facility. Vital Sign Value Date Comments Source SYSTOLIC BLOOD PRESSURE 120 06/07/2024 11:00:00 [place] DIASTOLIC BLOOD PRESSURE 68 06/07/2024 11:00:00 [place] PULSE OXIMETRY 96 06/07/2024 11:00:00 S [facility] WEIGHT 185 06/07/2024 11:00:00 [place] BMI 27 kg/m2 06/07/2024 11:00:00 [place] HEIGHT 70 06/07/2024 11:00:00 [place] PULSE 88 06/07/2024 11:00:00 [place] RESPIRATION 18 06/07/2024 11:00:00 [facility] N[facility]ELD Encounters Combined list of: 1) Encounters from Department of Veterans Affairs facilities going backup to the last 18 months, not all [place] inpatient encounters are included; 2) Encounters from the Department of [facility] facilities going backup to 280 months. Location Location Details Encounter Type Encounter Number Reason For Visit Attending Provider ADM Date DC Date Status Disposition Source [facility] Outpatient Encounter [id number] 04/05 [facility]counter [id number] 04/07 [facility]counter [id number] 04/08 [facility]counter [id number] 1.04/09 [facility]counter [id number] 04/09 [facility]counter [id number] 04/20 [facility] [id number] 04/20 [facility]counter [id number] 04/23 [facility]counter [id number] 05/06 [facility]counter [id number] 06/03 [facility] [place] OFFICE O/P EST MOD 30 MIN [id number] Diagnos is: ICD-10- CM I48.91 Unspeci fied atrial fibrill atshelli VICTORHIPOLITO 06/07 [facility] IELD Social History Combined list of available smoking, tobacco, and other social history from Department of Defense and Veterans Affairs facilities. Social History Type Response Date Comment Sourc e Tobacco smoking status NHIS VA-TOBACCO USE FORMER CIGARETTES 06/03/2024 [facility] [place] [facility] History of tobacco use [place]-TOBACCO NEVER USED OTHER TYPE 06/03/2024 [facility] [place] [facility]
--- OUTSIDE RECORDS SUMMARY | 2024-07-27 15:50 | XMS_ITS ---
Author Name [facility] Unknown History of Medication Use Medication Directions Dispensed Refills Start Date End Date Stat Xarelto 20 mg tablet TAKE 1 TABLET BY MOUTH EVERY DAY active tamsulosin 0.4 mg capsule TAKE 1 CAPSULE BY MOUTH IN THE EVENING active lidocaine (PF) 10 mg/mL (1 %) injection solution Take 2 mL by injection route. 11/11/2022 active Kenalog 40 mg/mL suspension for injection Take 1 mL by injection route. 11/11/2022 active Kenalog 40 mg/mL suspension for injection active Problems Problem Status Onset Date Problem Type Date of Resoluti on Source Osteoarthritis of left knee joint active 2022-11-11 [facility]Act [facility] Osteoarthritis of right knee joint active 2022-11-11 ProblemAct [facility] Pain of bilateral knee joints active 2023-02-06 ProblemAct [facility]
--- OUTSIDE RECORDS SUMMARY | 2024-07-27 15:50 | XMS_ITS | Data Portability ---
Author Organization [place] [facility] [place] Address [address] [facility] [address] [place] [address] Care Team Providers Care Technical Staff Assistant Name Role Phone HANNAH LEWIS Referring Provider HANNAH LEWIS Primary Care Provider [phone] Assessment Encounter Date Assessment Date Assessment LastModified by Organization Details LastModified Time 02/05/2023 02/05/2023 Very pleasant 82-year-old male with bilateral knee arthritis with symptomatic arthralgia here for cortisone injections. 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 Indirect care and treatment in conjunction with Dr. Mccollum Additional treatment plan discussed with the patient in detail included the following; - Provider focused nonsteroidal anti-inflammatory regimen (discussed were the pros, cons, benefits and risks as well as any black box warnings) in patients over 60 years old they should be very cautious in taking these medications due to potential decreased kidney function and or elevated blood pressure. - Analgesic pain medication for pain suppression (discussed were the pros, cons, benefits and risks as well as any black box warnings) - The use of topical pain relieving medication were discussed - The use of ice to decrease inflammation and pain - The use of assistive ambulatory devices for ambulation and fall prevention - Formal specific guided physical therapy program I reviewed my findings at length with the patient today. ? ? ?We discussed the nature and etiology of this problem along with current treatment options. We discussed the expected course and outcomes and what to expect. We also discussed risks and benefits. ? ? ? All of their questions were answered today, and there was exhibited understanding and comprehension of all that was discussed. Time Spent: 10 minutes were spent reviewing previous imaging and charting. ? ? ?10 minutes were spent obtaining patient history. ? ? ?5 minutes were spent on physical exam. ? ? ?5? ? ?minutes were spent explaining diagnosis and assessment. Today's documentation was made using voice recognition software. This note may contain grammatical errors secondary to the software. Not available 02/05/2023 13:45:25 02/06/2023 02/06/2023 Very pleasant 82-year-old male with bilateral knee arthritis with symptomatic arthralgia here for cortisone injection of the right knee. He was cleared by his cupola liner helper for cortisone injection at [facility]. After informed consent was obtained for cortisone injection the right knee. The procedure was carried out. The patient tolerated the procedure well. After care instructions were discussed in detail. Should his symptoms not improve or worsen he should contact my office immediately. I will see him back in 3 months time for repeat clinical exam. Indirect care and treatment in conjunction with Dr. Mccollum Additional treatment plan discussed with the patient in detail included the following; - Provider focused nonsteroidal anti-inflammatory regimen (discussed were the pros, cons, benefits and risks as well as any black box warnings) in patients over 60 years old they should be very cautious in taking these medications due to potential decreased kidney function and or elevated blood pressure. - Analgesic pain medication for pain suppression (discussed were the pros, cons, benefits and risks as well as any black box warnings) - The use of topical pain relieving medication were discussed - The use of ice to decrease inflammation and pain - The use of assistive ambulatory devices for ambulation and fall prevention - Formal specific guided physical therapy program I reviewed my findings at length with the patient today. ? ? ?We discussed the nature and etiology of this problem along with current treatment options. We discussed the expected course and outcomes and what to expect. We also discussed risks and benefits. ? ? ? All of their questions were answered today, and there was exhibited understanding and comprehension of all that was discussed. Time Spent: 10 minutes were spent reviewing previous imaging and charting. ? ? ?10 minutes were spent obtaining patient history. ? ? ?5 minutes were spent on physical exam. ? ? ?5? ? ?minutes were spent explaining diagnosis and assessment. Today's documentation was made using voice recognition software. This note may contain grammatical errors secondary to the software. Not available 02/06/2023 11:15:42 05/06/2023 05/06/2023 83-year-old male with grade 4 arthritis of both knees accompanied by his daughter at today's visit we had a very lengthy discussion regarding treatment modalities including conservative and surgical management. He opted for bilateral cortisone injections at today's visit after verbal consent was obtained. The procedures were carried out for which she tolerated well aftercare instructions were discussed in detail. They would like to schedule a first-time surgical consultation with Dr. Mccollum to discuss total joint replacement. For which they would like to make a decision is a family going forward after that visit. Patient agrees with the above-noted plan. Patient was seen and evaluated by Juarez Ramirez PA-C in indirect conjuction with Documenting Provider: Chaparro Mccollum MD . He/She agrees with history, physical examination, tests/diagnostic imaging, and treatment plan. Additional treatment plan discussed with the patient (only initiated if in boldface font) otherwise not applicable. Treatment may include the following; - Provider focused nonsteroidal anti-inflammatory regimen (discussed were the pros, cons, benefits and risks as well as any black box warnings) in patients over 60 years old they should be very cautious in taking these medications due to potential decreased kidney function and or elevated blood pressure. - Analgesic pain medication for pain suppression (discussed were the pros, cons, benefits and risks as well as any black box warnings) - The use of topical pain relieving medication were discussed - The use of ice to decrease inflammation and pain - The use of assistive ambulatory devices for ambulation and fall prevention - Formal specific guided physical therapy program I reviewed my findings at length with the patient today. ? ? ?We discussed the nature and etiology of this problem along with current treatment options. We discussed the expected course and outcomes and what to expect. We also discussed risks and benefits. ? ? ? All of their questions were answered today, and there was exhibited understanding and comprehension of all that was discussed. Time Spent: 20 minutes were spent reviewing previous imaging and charting. ? ? ?15 minutes were spent obtaining patient history. ? ? ?10 minutes were spent on physical exam. ? ? ?15? ? ?minutes were spent explaining diagnosis and assessment. Today's documentation was made using voice recognition software. This note may contain grammatical errors secondary to the software. Not available 05/06/2023 10:46:46 06/06/2023 06/06/2023 HPI : ?Thank you for the pleasure of requesting a consultation on this patient. Patient comes in complaining of bilateral knee pain. He states the left knee pain is equal to the right knee pain. He has been undergoing cortisone injections over the years with Juarez Ramirez. His last 1 was on May 06. He is getting relief from this. He gets about 2 months of relief he says. This patient is experiencing bilateral knee pain for a period lasting greater than the last three months, which is severe (VAS score greater than or equal to 6 on a 0-10 scale) in intensity and the restriction of function (appropriate for a patient of this age) are intolerable. The pain substantially limits activities of daily living. In particular, walking tolerance and ability to stair climb is reduced. Conservative management such as non-steroidal anti-inflammatory medications available by prescription, physician directed therapy, ice and/or heat and activity modification have been minimally effective or deemed insufficient by the patient for a period lasting greater than 3-6 months in duration. Assistive devices and external support were not deemed by the patient to be helpful in improving their function. The patient is unable to tolerate further conservative measures, including physical therapy, due to the severity of arthritis and level of pain. Review of systems is negative for rapidly progressive neurological disorder, chest pain, shortness of breath, fevers, chills, or any signs of active or persistent local or systemic infection. Physical Exam : Patient is well nourished, well-developed, in no acute distress, with appropriate mood and affect. The patient is oriented to time, place, and person. Gait evaluation does reveal a significant limp. Right knee motion is significantly reduced and does cause significant pain. The right knee moves from 20-110 degrees. The knee is stable within those range of motion to AP and ML stress. The alignment of the right knee is neutral. Right knee muscle strength is normal with the skin intact. Left knee motion is significantly reduced and does cause significant pain. The left knee moves from 20-110 degrees. The knee is stable within those range of motion to AP and ML stress. The alignment of the left knee is neutral. Left knee muscle strength is normal with the skin intact. Pedal pulses are palpable. Hip examination, including flexion and internal rotation, was negative in that groin pain was not produced. Radiographs of the left knee from January 2023 demonstrate degenerative joint disease with joint space narrowing, osteophyte formation, and subchondral sclerosis. There is dqtf-tj-aetj articulation. Radiographs of the right knee from January 2023 demonstrate degenerative joint disease with joint space narrowing, osteophyte formation, and subchondral sclerosis. There is agkk-yt-[id number] articulation. Assessment/Plan : The patient is an appropriate candidate for consideration of left total knee replacement. An extensive discussion was conducted of the natural history of the disease and the variety of surgical and non-surgical treatment options available to the patient. A risk/benefit analysis was discussed with the patient reviewing the advantages and disadvantages of surgical intervention at this time. A full explanation was given of the nature and the purpose of the procedure and anesthesia, its benefits, possible alternative methods of diagnosis of treatment, the risks involved, the possibility of complications, the foreseeable consequences of the procedure and the possible results of the non-treatment. No guarantee or assurance was made as to the results that may be obtained. Specifically, the risks were identified to include, but are not limited, to the following: Infection, phlebitis, pulmonary embolism, , paralysis, dislocation, pain, stiffness, instability, limp, weakness, breakage, leg-length inequality, uncontrolled bleeding, nerve injury, blood vessel injury, pressure sores, anesthetic risks, delayed healing of wound and bone, and wear and loosening. Additional risks of robotic knee replacement were discussed (if used) including but not limited to pin site infection, draining, longer incision, longer OR time, and fracture near the pin sites. Further discussion was undertaken with the patient about the details of surgical preparation, treatment and postoperative rehabilitation including medical clearance, autotransfusion, the hospital course and the postoperative rehabilitation involved. As a part of routine preoperative counseling, if the patient is a smoker, the patient recognizes the increased risk of complications in patients who utilize tobacco products. The patient has also been counseled regarding the elevated risk of surgical complications in patients with an elevated BMI. The patient demonstrates understanding of the increased risk in such patients. The patient was encouraged to participate in physical activity and diet modification under the direction of their primary care physician. We will plan on proceeding with left total knee arthroplasty using the Durga total knee replacement system. However, it is possible during the preoperative planning process or due to intraoperative findings that a different implant system may be utilized in order to optimize the patient's outcome. We had a discussion regarding implant and bearing options. We had a detailed discussion of the advantages and limitations of the specific implant designs, materials and bearing surfaces. All questions were answered to the patient's satisfaction, and the patient was asked to call the office with any further concerns. All in all, I feel that this patient is a good candidate for surgical reconstruction.? Patient is still deciding whether he would like to proceed with surgery. He is going to go home and think about this with his family. If he does not proceed with surgery, he will be following up with Juarez Ramirez for his corticosteroid injections. He cannot have surgery within 3 months of the injections. [email or web address] Not available 06/06/2023 09:48:31 08/13/2023 08/13/2023 83-year-old male with grade 4 arthritis of both knees accompanied by his daughter at today's visit we had a very lengthy discussion regarding treatment modalities including conservative and surgical management. He opted for bilateral cortisone injections at today's visit after verbal consent was obtained. The procedures were carried out for which she tolerated well aftercare instructions were discussed in detail. Patient was seen and evaluated by Juarez Ramirez PA-C in indirect conjuction with Documenting Provider: Chaparro Mccollum MD . He/She agrees with history, physical examination, tests/diagnostic imaging, and treatment plan. Additional treatment plan discussed with the patient (only initiated if in boldface font) otherwise not applicable. Treatment may include the following; - Provider focused nonsteroidal anti-inflammatory regimen (discussed were the pros, cons, benefits and risks as well as any black box warnings) in patients over 60 years old they should be very cautious in taking these medications due to potential decreased kidney function and or elevated blood pressure. - Analgesic pain medication for pain suppression (discussed were the pros, cons, benefits and risks as well as any black box warnings) - The use of topical pain relieving medication were discussed - The use of ice to decrease inflammation and pain - The use of assistive ambulatory devices for ambulation and fall prevention - Formal specific guided physical therapy program I reviewed my findings at length with the patient today. ? ? ?We discussed the nature and etiology of this problem along with current treatment options. We discussed the expected course and outcomes and what to expect. We also discussed risks and benefits. ? ? ? All of their questions were answered today, and there was exhibited understanding and comprehension of all that was discussed. Time Spent: 20 minutes were spent reviewing previous imaging and charting. ? ? ?15 minutes were spent obtaining patient history. ? ? ?10 minutes were spent on physical exam. ? ? ?15? ? ?minutes were spent explaining diagnosis and assessment. Today's documentation was made using voice recognition software. This note may contain grammatical errors secondary to the software. [email or web address] Not available 08/13/2023 14:21:10 Plan of Treatment Reminders Order Date Submit Date Provider Last Modified By Organization Details Last Modified Time Details Appointments None recorded. Lab None recorded. Referral None recorded. Procedures None recorded. Surgeries None recorded. Imaging XR, knee, 1 or 2 view - Right Knee Pain [address] [facility], [address], [address], [place], [address], 3 07:38:10 XR, knee, 1 or 2 view - Left Knee Pain [address] [facility], [address], [place], [address], 3 07:38:10 XR, knee, weightbeari ng - Bilateral Knee Pain [address] [facility], [address], [place], [address], 3 07:38:10 Medication Orders Kenalog 40 mg/mL suspension for injection [id number], [address] [facility], [place], [address], 4 14:21:51 lidocaine (PF) 10 mg/mL (1 %) injection solution 2023 024 [id number], [address] [place], [address], 4 14:21:51 Kenalog 40 mg/mL suspension for injection 2023 024 [id number], [address] [place] [address], [address], 4 14:21:51 lidocaine (PF) 10 mg/mL (1 %) injection solution 2023 024 [facility], [address] [place] [address], [address], 4 14:21:51 Kenalog 40 mg/mL suspension for injection [facility], [address] [place] [address], [address], 3 10:44:57 lidocaine (PF) 10 mg/mL (1 %) injection solution 2022 023 [facility], [address] [place] [address], [address], 3 10:44:57 Kenalog 40 mg/mL suspension for injection 2022 023 [facility], [address] [place] [address], [address], 3 10:44:58 lidocaine (PF) 10 mg/mL (1 %) injection solution 2022 023 [facility], [address] [place] [address], [address], 3 10:44:57 Kenalog 40 mg/mL suspension for injection 2022 023 [facility], [address] [place], [address], 3 11:46:28 lidocaine (PF) 10 mg/mL (1 %) injection solution [email or web address], [address] [place], [address], 3 11:46:28 Kenalog 40 mg/mL suspension for injection [address], [address] [place], [address], 3 13:45:47 lidocaine (PF) 10 mg/mL (1 %) injection solution 2022 [address]23 [address] [place], [address], 13:45:47 Patient TargetsNo targets recorded. Patient Instructions Encounter Date Encounter Id Patient Instructions Last Modified By Organization Details Last Modified Time 02/05/2023 [id number] You have been provided with a cortisone injection in order to reduce the pain and inflammation that you are experiencing. The injection consists of two medications. Cortisone (an anti-inflammatory that will take 48-72 hours to take effect) and Lidocaine (a numbing agent that will last 2-3 hours). Please note that not everyone will have a lasting response following the injection. PATIENT INSTRUCTIONS Once the Lidocaine wears off, you may have an increase in your pain. I recommend icing the affected area for 20 minutes 3-4 times per day. It is recommended that you refrain from any high level activities using the joint or limb that was injected for approximately 24-48 hours. Normal day-to-day activities are generally not a problem. POSSIBLE SIDE EFFECTS Individuals with dark complexions may experience some skin discoloration locally at the site of the injection. There is the possibility of an increase in discomfort within 48 hours following the injection. This is called a ? f lare? . To help minimize the chances of this, please see the post-injection instructions above. There is a less than 1% chance of an infection. If you notice any signs of infection (redness, warmth, drainage, fever greater than 100 degrees) please call our office or contact us through the portal [facility]OL[facility]. Not available 02/05/2023 12:31:21 4 view x-ray bilateral knees reveal grade 4 degenerative changes in all 3 compartments, osteophyte formation, subchondral sclerosis without acute bony abnormality. Not available 02/05/2023 13:37:15 02/06/2023 [id number] You have been provided with a cortisone injection in order to reduce the pain and inflammation that you are experiencing. The injection consists of two medications. Cortisone (an anti-inflammatory that will take 48-72 hours to take effect) and Lidocaine (a numbing agent that will last 2-3 hours). Please note that not everyone will have a lasting response following the injection. PATIENT INSTRUCTIONS Once the Lidocaine wears off, you may have an increase in your pain. I recommend icing the affected area for 20 minutes 3-4 times per day. It is recommended that you refrain from any high level activities using the joint or limb that was injected for approximately 24-48 hours. Normal day-to-day activities are generally not a problem. POSSIBLE SIDE EFFECTS Individuals with dark complexions may experience some skin discoloration locally at the site of the injection. There is the possibility of an increase in discomfort within 48 hours following the injection. This is called a ? f lare? . To help minimize the chances of this, please see the post-injection instructions above. There is a less than 1% chance of an infection. If you notice any signs of infection (redness, warmth, drainage, fever greater than 100 degrees) please call our office or contact us through the portal [facility]. Not available 02/06/2023 11:13:46 05/06/2023 [id number] You have been provided with a cortisone injection in order to reduce the pain and inflammation that you are experiencing. The injection consists of two medications. Cortisone (an anti-inflammatory that will take 48-72 hours to take effect) and Lidocaine (a numbing agent that will last 2-3 hours). Please note that not everyone will have a lasting response following the injection. PATIENT INSTRUCTIONS Once the Lidocaine wears off, you may have an increase in your pain. I recommend icing the affected area for 20 minutes 3-4 times per day. It is recommended that you refrain from any high level activities using the joint or limb that was injected for approximately 24-48 hours. Normal day-to-day activities are generally not a problem. POSSIBLE SIDE EFFECTS Individuals with dark complexions may experience some skin discoloration locally at the site of the injection. There is the possibility of an increase in discomfort within 48 hours following the injection. This is called a ? f lare? . To help minimize the chances of this, please see the post-injection instructions above. There is a less than 1% chance of an infection. If you notice any signs of infection (redness, warmth, drainage, fever greater than 100 degrees) please call our office or contact us through the portal [facility]. Not available 05/05/2023 21:09:56 08/13/2023 [id number] You have been provided with a cortisone injection in order to reduce the pain and inflammation that you are experiencing. The injection consists of two medications. Cortisone (an anti-inflammatory that will take 48-72 hours to take effect) and Lidocaine (a numbing agent that will last 2-3 hours). Please note that not everyone will have a lasting response following the injection. PATIENT INSTRUCTIONS Once the Lidocaine wears off, you may have an increase in your pain. I recommend icing the affected area for 20 minutes 3-4 times per day. It is recommended that you refrain from any high level activities using the joint or limb that was injected for approximately 24-48 hours. Normal day-to-day activities are generally not a problem. POSSIBLE SIDE EFFECTS Individuals with dark complexions may experience some skin discoloration locally at the site of the injection. There is the possibility of an increase in discomfort within 48 hours following the injection. This is called a ? f lare? . To help minimize the chances of this, please see the post-injection instructions above. There is a less than 1% chance of an infection. If you notice any signs of infection (redness, warmth, drainage, fever greater than 100 degrees) please call our office or contact us through the portal [facility]. Not available 08/13/2023 14:20:13 Reason for Referral None Reported. Problems Name Problem SNOMED Code Status Onset Date Resolution Date Notes Provider Name and Address Organization Details Recorded Time Pain of bilateral knee joints [id number] 04 Active 2022 JUAREZ RAMIREZ PA-C [address], [place], [address], [place] - [facility], [facility] 3 11:13:48 Osteoarthri tis of right knee joint [id number] 00 Active 2022 JUAREZ RAMIREZ PA-C [address], [place], [address], [place] - [facility], [facility] 3 11:06:22 Osteoarthri tis of left knee joint [id number] 09 Active 2022 JUAREZ RAMIREZ PA-C [address], [place], [address], [place] - [facility], [facility] 3 11:06:27 Problem Notes None recorded. Procedures Surgical History Date Name Laterality Status Provider Name and Address Organization Details Recorded Time 4 Knee Joint/Bursa Asp & Inj completed JUAREZ RAMIREZ PA-C [address], [place], [address], [place] - [facility], P 08/13/2023 14:20:13 3 Knee Joint/Bursa Asp & Inj completed JUAREZ RAMIREZ PA-C [address], [place], [address], [place] - [facility], [facility] 05/05/2023 21:09:03 3 Knee Joint/Bursa Asp & Inj completed JUAREZ ARMIREZ PA-C [address], [place], [address], [place] - [facility], [facility] 02/06/2023 11:13:46 3 Knee Joint/Bursa Asp & Inj completed JUAREZ RAMIREZ PA-C [address], [place], [address], [place] - [facility], [facility] 02/05/2023 12:31:20 3 Knee Joint/Bursa Asp & Inj completed JUAREZ RAMIREZ PA-C [address] [place] [address], [place], [address], [place] - [facility], [facility] 11/11/2022 11:05:43 total replacement of hip completed Teresa Haywood [place] - [facility], [facility] 02/05/2023 13:57:28 Imaging Results None recorded. Procedure Notes None recorded. Medical Equipment None Reported. Allergies No known drug allergies Medications Name Sig Start Date Stop Date Status Note LastModified by Organization Details LastModified Time doxycycline hyclate 100 mg capsule TAKE 1 CAPSULE BY MOUTH TWICE A DAY active Not Available Not Available No t Available metoprolol succinate ER 50 mg tablet,exten ded release 24 hr TAKE 1 TABLET BY MOUTH EVERY DAY active Not Available Not Available No t Available Kenalog 40 mg/mL suspension for injection Take 1 mL by injection route. 2023 active Not Available Not Available Not Avai lable hydrocortiso ne 2.5 % topical cream with perineal applicator APPLY DIRECTED VIA APPLICATOR TWICE A DAY NEEDED FOR PAIN active Not Available Not Available No t Available tamsulosin 0.4 mg capsule TAKE 1 CAPSULE BY MOUTH IN THE EVENING active Not Available Not Available Not Available betamethason e dipropionate 0.05 % topical cream APPLY TOPICALLY TO RIGHT LEG RASH DAILY FOR 10 DAYS active Not Available Not Available No t Available lidocaine (PF) 10 mg/mL (1 %) injection solution Take 2 mL by injection route. 2023 active Not Available Not Available Not Avai lable Xarelto 20 mg tablet TAKE 1 TABLET BY MOUTH EVERY DAY active Not Available Not Available No t Available Vitals None Recorded Social History None recorded. Functional Status None recorded. Mental Status None recorded. Family History Relationship Description Onset Age of this Age Resolved Age Notes LastModified by Organization Details LastModified Time Father Blood coagulation disorder [email or web address] Not available 2022 13:56:53 Mother Diabetes mellitus [email or web address] Not available 2022 13:57:00 Medical History Condition Response Coronary Artery Disease N Gout N Hyperthyroidism N MRSA N Blood Transfusion N Emphysema N Depression N COPD N Hypothyroidism N Pacemaker N Vascular Disease N Gastrointestinal Disease N Anxiety Disorder N Autoimmune disease N Arthritis N Cancer Y Stroke N High Cholesterol N Neurologic Disorder N Liver Disease N Organ Transplant N Rheumatoid Arthritis N Arrhythmia N Fibromyalgia N Kidney Disease N Allergies/Hayfever N Adverse Reaction to Anesthesia N Thyroid Problems N Anemia N Brain Injury N Heart Attack (MS) N Osteopenia N Diabetes N Bleeding Disorder N Seizures/Epilepsy N AIDS/HIV N Congestive Heart Failure (CHF) N Asthma N Amputation N Reflux/GERD N Sleep Apnea N Aneurysm N Hepatitis N Heart Disease N Pulmonary Embolism N Hypertension N Osteoporosis N Past Encounters Encounter ID Performer Location Encounter Start Date Encounter Closed Date Diagnosis/Indication Diagnosis SNOMED-CT Code Diagnosis ICD10 Code Diagnosis Note [id number] MD LUPIS [email or web address] [address] [facility] [address] [place] [address] 11/11/2022 12:34:51 11/11/2022 13:34:02 Osteoarthritis of right knee joint 0482188418 31098 M17.11 Osteoarthr itis of left knee joint 8548487052 53064 M17.12 [id number] MD LUPIS Gould [employer] [address] [address] 02/05/2023 13:02:03 02/05/2023 15:41:47 Osteoarthritis of right knee joint 6271527627 51172 M17.11 Osteoarthr itis of left knee joint 4808605988 32198 M17.12 Pain of bi lateral knee joints 5211830440 35900 M25.561 [id number] MD LUPIS Gould[employer]fgame [address] [address] 02/06/2023 10:28:10 02/06/2023 11:22:57 Osteoarthritis of right knee joint 6657340626 78608 M17.11 [id number] MD LUPIS Gould7fgame 299 [facility] [address] [place] [address] 05/06/2023 09:46:21 05/06/2023 10:31:49 Osteoarthritis of right knee joint 2847925464 61973 M17.11 Osteoarthr itis of left knee joint 8031499181 33151 M17.12 [id number] MD LUPIS Gouldjuan carlos [address] [address] 06/06/2023 08:55:44 06/06/2023 09:53:23 Osteoarthritis of left knee joint 6985449713 87028 M17.12 Osteoarthr itis of right knee joint 4075849328 84729 M17.11 [id number] MD LUPIS Gould [facility] 299 [facility] [address] [place] [address] 08/13/2023 14:05:58 08/13/2023 14:35:36 Osteoarthritis of left knee joint 9695494343 13555 M17.12 Osteoarthr itis of right knee joint 9411046608 93785 M17.11 Health Concerns Section Related Observation LastModified by Organization Detai ls LastModified Time None Recorded Concern Status LastModified by Organization Details LastModified Time None Recorded Advance Directives Directive None Recorded Payers Encounter Date Sequence Insurance Name Policy Number Policy Pierson Covered Member ID Pierson Member ID Guarantor Name 02/05/2023 2 UNICARE - GIC INDEMNITY PLAN (PPO) [id number] Fabio Javed [id number] [facility] 02/05/2023 1 [place]ARE [place]: NATIONAL [facility] Fabio Javed [id number] 1 [facility] 02/06/2023 2 [employer]IC[employer] - GIC INDEMNITY PLAN (PPO) [id number] Fabio Javed [id number] [facility] 02/06/2023 1 MED[place]ARE [place]: NATIONAL [facility] Fabio Javed [id number] 1 [facility] 05/06/2023 2 [employer] - GIC INDEMNITY PLAN (PPO) [id number] Fabio Javed [id number] [facility] 05/06/2023 1 MEDICARE [place]: [facility] Fabio Javed [id number] [facility] 06/06/2023 2 [employer]ICARE - GIC INDEMNITY PLAN (PPO) [id number] Fabio Javed [id number] [facility] 06/06/2023 1 MEDICARE [place]: [facility] Fabio Javed [id number] [facility] 08/13/2023 2 UNICARE - GIC INDEMNITY PLAN (PPO) [id number] Fabio Javed [id number] [employer] 08/13/2023 1 MEDICARE [place]: NATIONAL [employer] Fabio Javed [id number] 1 Fabio Javed Notes Date Note Type Note Provider Name and Address Organization Details Recorded Time 02/05/2023 text/html This is a very pleasant 82-year-old male with a known history of severe bilateral knee arthritis who gets good results with cortisone injections. Is been greater than 3 months since his last injections. Describes medial knee pain with walking. Gets good relief with cortisone. He denies any interval change in history here for evaluation and treatment. 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 He will see them today in which she will ask if he can have a cortisone injection of his right knee due to the proximity. JUAREZ RAMIREZ PA-C [address] [facility] [address], [place], [address], [place] - [facility] 02/05/2023 13:46:55 02/06/2023 text/html This is a very pleasant 82-year-old male with a known history of severe bilateral knee arthritis who gets good results with cortisone injections. Is been greater than 3 months since his last injections. Patient had cortisone injection of the left knee at his visit on 02/05/2023. He went to follow-up with his cupola liner helper due to the proximity of his squamous cell carcinoma in relation to his right knee if he should have a cortisone injection. He states he saw his cupola liner helper who gave him clearance for cortisone injection of his right knee at today's visit. Pain is medial in nature worse with walking. He is not interested in surgical intervention. JUAREZ RAMIREZ PA-C [address] [facility],[address], [place], [address], [place] - [facility] 02/06/2023 11:47:06 05/06/2023 text/html 83-year-old male accompanied by his daughter Machelle at today's visit grade 4 hyev-of-yelt articulation osteoarthritis of both knees for which she gets satisfactory relief with cortisone injections. His last injection was on 02/06/2023 which is since worn off he denies fevers chills flulike symptoms warmth overlying the knee joint here for follow-up and possible cortisone injections. JUAREZ RAMIREZ PA-C [address] [facility] [address], [place], [address], [place] - [facility], [facility] 05/06/2023 10:47:12 08/13/2023 text/html 83-year-old male accompanied by his daughter Machelle at today's visit grade 4 nmkg-nc-mrep articulation osteoarthritis of both knees for which she gets satisfactory relief with cortisone injections. His last injection > 3 months which is since worn off he denies fevers chills flulike symptoms warmth overlying the knee joint here for follow-up and possible cortisone injections. JUAREZ RAMIREZ PA-C [address] [facility],[address], [place], [address], [place] - [facility], [facility] 08/13/2023 14:22:50
--- OUTSIDE RECORDS SUMMARY | 2024-07-27 15:50 | XMS_ITS | Clinical Summary ---
Author Organization [facility] it Address [address] [place] [address] Care Team Providers Care Staff Weapons Officer Name Role Phone Chase Hernandez MD Primary Care Provider Surgical History Surgery Date Site/Laterality Comments JOINT REPLACEMENT PROCEDURE:JOINT REPLACEMENT Medical History Medical History Date Comments Heart disease DX:Heart disease Arthritis DX:Arthritis Family History Medical History Relation Name Comments Diabetes Mother Relation Name Status Comments Mother Social History Tobacco Use Types Packs/Day Years Used Date Smoking Tobacco: Never Assessed Sex and Gender Information Value Date Recorded Sex Assigned at Not on file Legal Sex Male 1:53 PM EST Gender Identity Not on file Sexual Orientation Not on file Obstetrics History Last Filed Vital Signs Vital Sign Reading [...] Health Maintenance Due Date Last Done Comments DTaP,Tdap,and Td Vaccines (1 - Tdap) 1961 Pneumococcal Vaccine: 50+ Ye ars (1 of 1 - PCV) 1992 Zoster Vaccines (1 of 2) 1992 RSV Immunization Patients 60 + Years Old (1 - 1-dose 75+ series) 2017 Cholesterol Screening (Lipid Panel) 05/09/2022 Depression Screening 05/09/2022 Falls Risk Assessment 05/09/2022 Social Influencers of Health Screening 05/09/2022 COVID-19 Vaccine ( - 2023-2 5 season) [...] on patient's age to complete this topic MMR Vaccines Aged Out No longer eligi ble based on patient's age to complete this topic Meningococcal ACWY Vaccine Aged Out N o longer eligible based on patient's age to complete this topic Meningococcal B Vacine Aged Out No lo nger eligible based on patient's age to complete this topic RSV Immunization Patients Un stephany 20 months Aged Out No longer eligible b ased on patient's age to complete this topic Varicella Vaccines Aged Out No longer eligible based on patient's age to complete this topic Care Teams Staff Weapons Officer Relationship Specialty Start Date End Date Chase Hernandez MD [address] [place] [address] Dr [address] [place], [place] PCP - General Endocrinology 09/14/15
== END 2024-07-27 13:51 | disposition home or self-care (01) ==
PROVIDERS: PCP Internal Medicine; Visit Provider Internal Medicine
DX: I48.0 Paroxysmal atrial fibrillation (principal); I35.0 Nonrheumatic aortic (valve) stenosis; M25.569 Pain in unspecified knee
CPT/HCPCS: 93010; 99214; G2211

== ENCOUNTER → 2024-07-27 12:58 | Outpatient (BNVA) | payer MEDICARE, OTHER, SELFPAY | PROVIDERS: PCP Internal Medicine; Visit Provider Internal Medicine | DX: I48.0 Paroxysmal atrial fibrillation (principal); I35.0 Nonrheumatic aortic (valve) stenosis; M25.569 Pain in unspecified knee; R94.31 Abnormal electrocardiogram [ECG] [EKG] | CPT/HCPCS: 93005; 99212 ==

== ENCOUNTER 2024-11-03 14:26 | Outpatient (AMB) | payer MEDICARE, OTHER, SELFPAY ==
--- OUTSIDE RECORDS SUMMARY | 2024-11-03 14:29 | XMS_ITS | Clinical Summary ---
Author Organization [employer] Address [address] [facility] 7[address] [place] [address] Care Team Providers Care Remediation Project Engineer Name Role Phone Unavailable Primary Care Provider [...] - 2023-2 5 season) 2024 Influenza Vaccine (Season Ended) 2025 HIB Vaccines Aged Out No longer eligi [...] age to complete this topic Meningococcal B Vaccine Aged Out No l onger eligible based on patient's age to complete [...]
[2024-11-03 14:41] VITALS: BP 116/60; PULSE 67; TEMP 36.6; O2SAT 99; BMI 26.3
--- NOTE | 2024-11-03 14:41 | MHC.PC.OV ---
Vital Signs 11/03/24 14:41 Height 5 ft 10 in Weight 183 lb BMI 26.3 BP 116/60 Blood Pressure Location Rt brachial Position Sitting Pulse 67 Pulse Source Pulse Oximeter Temp 97.9 F Temp Source Axillary Pulse Oximetry (%) 99 Oxygen Delivery Method Room Air Intake Visit Reasons: Routine Technical Marketing Consultant Required: No Accompanied by: Self / Same As Patient Allergies No Known Allergies [No Known Allergies*] Allergy (Verified 11/03/24 14:42) Tobacco use date assessed: 11/03/24 Fall risk assessment: 1 Fall in past year Last assessed Fall Risk: 11/03/24 Dental Screening Dental Screen Date: 11/03/24 Did you have a dental visit in the last 12 months?: No Did you have a dental problem in the last 6 months where you did not have access to dental care?: No [facility] Medical History Chronic wound Wears dentures Cataract Non-rheumatic aortic stenosis NSTEMI (non-ST elevated myocardial infarction) PAF (paroxysmal atrial fibrillation) Surgical History Hx of basal cell carcinoma excision Hx of appendectomy Hx of colonoscopy (~12/04/18) History of right hip replacement (~2010) Family History (Updated 11/03/24 @ 14:55 by Catalina Roy MA) Father No problems noted. Mother No problems noted. Social History Housing: House Do you presently have visiting nurse or other home services: Yes ([facility] 2x week changes dressing on right lower leg s/p skin ca excision) Patient Tobacco Use Status: Former Tobacco user e-Cigarette/Vaping Use: Former Use service: No Current occupational status: retired Cognitive needs: Yes (walker) Hearing needs: No Vision needs: No Questionnaire PHQ-9 Over the last 2 weeks, how often have you been bothered by any of the following problems? 1. Little interest or pleasure in doing things: not at all 2. Feeling down, depressed, or hopeless: not at all 3. Trouble falling or staying asleep, or sleeping too much: not at all 4. Feeling tired or having little energy: not at all 5. Poor appetite or overeating: not at all 6. Feeling bad about yourself - or that you are a failure or have let yourself or your family down: not at all 7. Trouble concentrating on things, such as reading the newspaper or watching television: not at all 8. Moving or speaking so slowly that other people could have noticed. Or the opposite - being so fidgety or restless that you have been moving around a lot more than usual: not at all 9. Thoughts that you would be better off or of hurting yourself in some way: not at all Total score: 0 Source: Developed by Drs. Pato Winslow, Chela Calvillo, Mohinder Don and colleagues, with an educational margareth from [employer]. Thrive Questionnaire Date Thrive assessed: 11/03/24 I am a: Patient Within the past 12 months, did the food you bought not last and you didn't have the money to get more?: Never true Within the past 12 months, did you worry whether your food would run out before you got money to buy more?: Never true Do you have trouble paying for medicines?: No Do you have trouble getting transportation to medical appointments?: No Do you have trouble paying your heating and electricity bill?: No Do you have trouble taking care of your child, family member or friend?: No Do you have trouble with day-to-day activities such as bathing, preparing meals, shopping, managing finances, etc.?: No Are you currently unemployed and looking for a job?: No Are you interested in more education?: No THRIVE Score: 0 AUDIT C Alcohol Use Questionnaire (AUDIT-C) 1. How often do you have a drink containing alcohol?: Never 3. How often do you have six or more drinks on one occasion?: Never Total Score: 0 LELA-7 AMB Questionnaire LELA-7 Date LELA - 7 assessed: 11/03/24 Feeling nervous, anxious, or on edge: 0 = Not at all Not being able to stop or control worryin = Not at all Worrying too much about different things: 0 = Not at all Trouble relaxin = Not at all Being so restless that it is hard to sit still: 0 = Not at all Becoming easily annoyed or irritable: 0 = Not at all Feeling afraid as if something awful might happen: 0 = Not at all Total LELA-7 score (0-4 normal; 5-9 mild; 10-14 moderate; 15-21 severe): 0 Source: Developed by Drs. Pato Winslow, Chela Calvillo, Mohinder Don and colleagues, with an educational margareth from [employer]. Physical exam (Primary Care) Vital Signs: Last Vital Signs Temp 97.9 F 11/03/24 14:41 Pulse 67 11/03/24 14:41 BP 116/60 11/03/24 14:41 Pulse Ox 99 11/03/24 14:41 Oxygen Delivery Method Room Air 11/03/24 14:41 BMI result Body Mass Index 26.3 Tobacco/Smoking Status: Tobacco use Status Tobacco use date assessed 11/03/24 11/03/24 14:43 Patient Tobacco Use Status Former Tobacco user 11/03/24 14:43 e-Cigarette/Vaping Use Former Use 11/03/24 14:43 PHQ-9: PHQ-9 Score PHQ-9: Total score 0 11/03/24 14:43 Thrive Assessment: Date of Thrive Assessment Date Thrive assessed 11/03/24 11/03/24 14:43 Coding Level of Care Code New Pt Level 4 (76779) Complex EM visit Add On G2211 Diagnoses Knee pain M25.569 Assessment & Plan Assessment & Plan (1) Knee pain: Code(s): M25.569 - Pain in unspecified knee Category: Medical Plan: Extensive OA in the knees. Patient wants a replacement. Barriers include a non healing wound due to arterial insufficiency and increased cardiac risk (aortic stenosis). Gabapentin for the pain . Care discussed with daughter Plan History of Present Illness - The patient is an 84-year-old male presenting with evaluation and management of knee pain and non-healing wound. - Bilateral knee osteoarthritis is longstanding, most notably impacting the left knee. Hfzr-kp-yopd contact and marked pain while ambulating have been noted for an extended period. - A chronic non-healing wound, persisting for over a year, is present below the knee, attributed to underlying arterial insufficiency. The patient reports ongoing infection treatment and describes decreased sensation and chronic pain associated with the wound. - Contributing to the management complexity is the patient's history of atrial fibrillation, with the use of anticoagulants heightening potential intervention risks. Social History - The patient lives independently and reportedly manages his care and appointments alone, with some support from family. - He still drives despite his mobility difficulties. - The patient is on the waiting list for admission to the [facility], pending administrative formalities. Review of Systems - Musculoskeletal: Reports bilateral knee pain, left worse than right; reports crepitus. - Cardiovascular: Reports atrial fibrillation. - Neurological: Reports numbness in fingers. - Skin: Reports non-healing wound below the knee with associated pain. - Sleep: Reports difficulty sleeping due to pain. Physical Exam General: Cooperative and healthy appearing Nutritional Appearance: Well nourished Orientation/consciousness: Patient oriented x3 Limitations: No limitations Head: Normal to inspection General: Appearance normal, both eyes and all related structures Neck: Normal visual inspection Chest: Normal palpation of entire chest wall Respiratory: N ormal respiratory effort Neurology: Patient oriented x3, reports numbness in fingers. Results Plan 1. Bilateral Knee Osteoarthritis - Continue cortisone injections with noted decrease in efficacy. Discuss surgical options as a future consideration post-wound healing. 2. Non-Healing Wound With Arterial Insufficiency - Continue antibacterial therapy and wound care. Scheduled a stent placement procedure for arterial insufficiency. 3. Atrial Fibrillation - Maintain current anticoagulation therapy, with recognition of bleeding risks impacting surgical decisions. 4. Pain Secondary To Wound - Initiate gabapentin at 100 mg nightly to manage nocturnal pain. 5. Pain Secondary To Osteoarthritis - Cortisone injections continued; assess for physiotherapy options. Discussion Notes I reviewed the patient's current health status, highlighting significant bilateral knee osteoarthritis, compounded by non-healing wound with arterial insufficiency, and atrial fibrillation. We discussed the ongoing challenges of managing osteoarthritis symptoms vis-a-vis wound healing. I introduced gabapentin to address the patient's specific complaint of nighttime pain due to the wound. For a comprehensive management approach, continued dialogue with the orthopedic and vascular surgeons regarding potential interventions was reinforced. The importance of a multi-disciplinary perspective in evaluating treatment progression and surgical feasibility was emphasized. We also explored the implications of anticoagulation in therapeutic decision-making. Patient Instructions - Take gabapentin 100 mg at night for wound pain. If needed, increase to 2 tablets at night. - Continue attending regular appointments for cortisone injections and wound care. - Plan for upcoming endovascular procedure for arterial support. - Arrange to send photos of the wound to me for assessment. - Ensure necessary forms are submitted for [facility] application. - Report any worsening symptoms or new concerns promptly.
== END 2024-11-03 15:57 | disposition home or self-care (01) ==
LOC: HO.HMCHD 14:26
PROVIDERS: PCP Internal Medicine; Visit Provider Internal Medicine
DX: M25.569 Pain in unspecified knee (principal)

== ENCOUNTER → 2024-11-03 14:26 | Outpatient (BNVA) | payer MEDICARE, OTHER, SELFPAY | PROVIDERS: PCP Internal Medicine; Visit Provider Internal Medicine | DX: M17.0 Bilateral primary osteoarthritis of knee (principal); I48.91 Unspecified atrial fibrillation; Z79.899 Other long term (current) drug therapy | CPT/HCPCS: 99202 ==

== ENCOUNTER 2025-02-04 06:16 | Outpatient (REF) | payer MEDICARE, OTHER, SELFPAY ==
--- OUTSIDE RECORDS SUMMARY | 2025-01-19 09:00 | XMS_ITS ---
Author Organization [facility] Address [address] [facility] [address] [place] [address] Care Team Providers Care Corncob Pipes Assembler Name Role Phone Fran Pang MD Primary Care Provider Lizz Alexis Unavailable [phone] REASON FOR VISIT Follow up wound care Encounters Encounter Location Date Provider Diagnosis [facility] [address] [facility] [address] [place] [address] 01/19/2025 Lizz Alan Plan Of Treatment No Information Progress Notes * Fabio BOWENDOB:1940 (84 yo M)Acc No.[id number]:01/19/2025 Follow-Up Visit Patient: Fabio PHAM Provider: Darya Alan NP :1940 A ge:84 Y S ex:Male Date:01/19/2025 Address:[address] [place], [place] [address] Pcp:Fran Pang MD Subjective: * Chief Complaints: * 1 . Follow up wound care. * Medical History: Objective: * Vitals: Assessment: Plan: * Treatment: * Billing Information: * Visit Code: * Procedure Codes: * Electronic signature of Jeane Alan NP on 02/04/2025 at 06:21 AM EDT Sign off status: Pending * Provider: Darya Alan NP Date: 01/19/2025 Generated for Lan cedeño/Gudelia/Clariceitting on: 02/04/2025 06:21 AM EDT
--- OUTSIDE RECORDS SUMMARY | 2025-02-04 06:20 | XMS_ITS | Clinical Summary ---
Author Organization [employer] Address [address] [facility] [address] [place] [address] Care Team Providers Care Health Commissioner Name Role Phone Unavailable Primary Care Provider [...] 2023-2 5 season) 2024 Influenza Vaccine (#1) 2025 HIB Vaccines Aged Out No longer [...]
--- OUTSIDE RECORDS SUMMARY | 2025-02-04 06:20 | XMS_ITS | Encounter Summary ---
Author Organization [employer] Address [address] [facility] [address] [place] [address] Care Team Providers Care Drag Sawyer Name Role Phone Unavailable Primary Care Provider Unavailabl e Encounter Details Date Type Department Care Team (Latest Contact Info) Description 05/10/2019 Abstract [facility] CONVERSIONS Dental, Provider, DDS Social History Tobacco [...]
--- OUTSIDE RECORDS SUMMARY | 2025-02-04 06:20 | XMS_ITS | Patient Health Record ---
Author Organization [facility]ora andres Keen Address [address] [place] [address] Care Team Providers Care Chief Underwriter Name Role Phone Chase Hernandez MD Primary Care Provider Caleb Hadley Unavailable [phone] Reason For Referral No Information Medications Medication SIG (Take, Route, Fr equency, Duration) Notes Start Date End Date Status Tamsulosin HCl 0.4 MG Oral; Duration: 90 Active Xarelto 20 MG Oral; Duration: 90 Active Amiodarone HCl 200 MG Oral; Duration: 90 Active Metoprolol Succinate ER Active Nightsplint . . . AFO - L1930; Duration: . Active Social History Tobacco Use: Social History Observation Description Date Details (start date - stop date) Former Smoker NA - NA Tobacco Use/Smoking Question Answer Notes Are you a: former smoker Additional Findings: Tobacco Non-User Current no n-smoker Alcohol Screen Question Answer Notes Did you have a drink containing alcohol in the p ast year? No Points 0 Interpretation Negative Problems Problem Type SNOMED Code ICD Code Onset Dates Problem Status W/U Status Risk Notes Problem Bilateral atherosclerosis of arteries of lower limbs (disorder) ([id number] ) Atherosclerosis of [place] artery of both lower extremities, with unspecified presence of clinical manifestation (I70.203) Active confirmed Plan Of Treatment Pending Test Test Name Order Date , -01/04/2020 Insurance Providers Payer Name Payer Address Payer Phone Subscriber Number Group Number Insured Name Patient Relationship to Insured Coverage Start Date Coverage End Date Medicare National [employer] [address] [place] [address] [id number] Fabio Javed Self - patient is the insured [employer] [address] [place] [phone] [id number] Fabio Javed Self - patient is the insured Medical (General) History Medical History History ICD Code Arthritis Cataracts Measles A Fib Surgical History Surgery Date(Month/Year) Hip Replacement 07/30/2010
--- OUTSIDE RECORDS SUMMARY | 2025-02-04 06:20 | XMS_ITS | Clinical Summary ---
Author Organization [facility] Address [address] [place] [address] Care Team Providers Care Small Business Consultant Name Role Phone Chase Hernandez MD Primary Care Provider [phone] Allergies No known active allergies Medications Medication [...] 1-dose 75+ series) 2017 Influenza Vaccine (#1) 2025 0, 01/28/2019, 03/30/2018 Hepatitis B Vaccines Aged Out No long er eligible based on patient's age to complete this topic RSV Ped < 20 months Aged Out No longe r eligible based on patient's age to complete this topic Care Teams Small Business Consultant Relationship Specialty Start Date End Date Chase Hernandez MD [address] [place] [address] [address] [place] [address] PCP - General Grazing Aide 02/05/17
--- OUTSIDE RECORDS SUMMARY | 2025-02-04 06:20 | XMS_ITS ---
Author Name [facility] Organization Unknown History of Medication Use Medication Directions Dispensed Refills Start Date End Date [facility] Kenalog 40 mg/mL suspension for injection Take 1 mL by injection route. 11/11/2022 active lidocaine (PF) 10 mg/mL (1 %) injection solution Take 2 mL by injection route. 11/11/2022 active Kenalog 40 mg/mL suspension for injection active tamsulosin 0.4 mg capsule TAKE 1 CAPSULE BY MOUTH IN THE EVENING active Xarelto 20 mg tablet TAKE 1 TABLET BY MOUTH EVERY DAY active Problems Problem Status Onset Date Problem Type Date of Resoluti on Source Osteoarthritis of left knee joint active 2022-11-11 ProblemAct [facility] Osteoarthritis of right knee joint active 2022-11-11 ProblemAct [facility] Pain of bilateral knee joints active 2023-02-06 ProblemAct [facility] Encounters Encounter Type Encounter Reason Primary Diagnosis Location Date Ambulatory [facility] 08/13/2023 Ambulatory [facility] 08/13/2023 Ambulatory [facility] 06/11/2023 Ambulatory [facility] 06/06/2023 Ambulatory [facility] 05/24/2023 Ambulatory [facility] 05/06/2023 Ambulatory [facility] 02/06/2023 Ambulatory [facility] 02/05/2023 Ambulatory [facility] 01/30/2023 Ambulatory [facility] 12/17/2022 Ambulatory [facility] 11/11/2022 Ambulatory [facility] 11/11/2022 Ambulatory [facility] 09/04/2022
--- OUTSIDE RECORDS SUMMARY | 2025-02-04 06:21 | XMS_ITS | Clinical Summary ---
Author Organization [employer] [facility] it Address [address] [place] [address] Care Team Providers Care Crop Insurance Claims Adjuster Name Role Phone Chase Hernandez MD Primary [...] Vaccines (1 of 2) 1992 RSV Immunization Adult Patie nts (1 - 1-dose 75+ series) 2017 Cholesterol Screening (Lipid Panel) 05/09/2022 Falls Risk Assessment 05/09/2022 Social Influencers of Health Screening 05/09/2022 Depression Screening 06/02/2024 COVID-19 Vaccine ( - 2023-2 5 season) 2025 Influenza Vaccine (#1) 2025 HIB Vaccines Aged [...] age to complete this topic Care Teams Crop Insurance Claims Adjuster Relationship Specialty Start Date End Date Chase Hernandez MD [address] [place] [address] [address] [place] PCP - General Endocrinology 09/14/15
--- OUTSIDE RECORDS SUMMARY | 2025-02-04 06:21 | XMS_ITS | Patient Health Record ---
Author Organization [facility] Address [address] [facility] [address] [place] [address] Care Team Providers Care Geosciences Faculty Member Name Role Phone Fran Pang MD Primary Care Provider Unavailgerry garduno Waqas Lizz Unavailable [phone] Paddy Jacobson Unavailable [phone] Allergies No Known Allergies Reason For Referral No Information Medications Medication SIG (Take, Route, Frequency, Duration) Notes Start Date End Date Status Metoprolol Succinate 50 MG 1 capsule Orally Once a day Active Tamsulosin HCl 0.4 MG 1 capsule Orally O nce a day Active Xarelto 20 MG 1 tablet with food O rally Once a day Active Ammonium Lactate 12 % 1 application Exte rnally daily; Duration: 30 days 01/03/2025 07/01/2025 Active Problems Problem Type SNOMED Code ICD Code Onset Dates Problem Status W/U Status Risk Notes Problem Bacterial infection caused by Pseudomonas (22615158) Pseudomonas (aeruginosa) (mallei) (pseudomallei) as the cause of diseases classified elsewhere (B96.5) Active confirmed Problem Cancer of skin of lower limb, basal cell (984478860) Basal cell carcinoma of skin of right lower limb, including hip (C44.712) Active confirmed Problem Aortic valve disorder (8327403) Nonrheumatic aortic (valve) stenosis (I35.0) Active confirmed Problem Chronic ulcer of lower extremity (88313006) Non-pressure chronic ulcer of other part of right lower leg limited to breakdown of skin (L97.811) Active confirmed Problem 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) Active confirmed Problem Abnormal gait (08784306) Unsteadiness on feet (R26.81) Active confirmed Problem Localized edema (5800275) Localized edema (R60.0) Active confirmed Problem Long-term current use of anticoagulant (407462752) equipment [employer] (current) use of anticoagulants (Z79.01) Active confirmed Problem Total hip replacement Prosthesis (997026935) Presence of right artificial hip joint (Z96.641) Active confirmed Problem Peripheral vascular disease (466041546) Peripheral vascular disease (I73.9) Active confirmed Problem Neuropathy (273547507) Neuropathy (G62.9) Active confirmed Problem Arthritis (9271508) Arthritis (M19.90) Active confirmed Problem Hypertension (38009400) Hypertension (I10) Active confirmed Problem Gastroesophageal reflux disease (911769171) GERD (gastroesophageal reflux disease) (K21.9) Active confirmed Problem Benign prostatic hyperplasia (981559409) BPH (benign prostatic hyperplasia) (N40.0) Active confirmed Problem Atrial fibrillation (56199949) Atrial fibrillation (I48.91) Active confirmed Problem Anemia (490057563) Anemia (D64.9) Active confir med Problem Peripheral venous insufficiency (05833196) Peripheral venous insufficiency (I87.2) Active confirmed Problem Cellulitis of left lower leg (56050207449416) Cellulitis of left lower leg (L03.116) Active confirmed Problem Abrasion of grea t toe, right (S90.411A) Active confirmed Vital Signs Heart Rate 78 /min 01/03/2025 Temperature 98.4 degrees Fahrenheit 01/03/2025 Respiratory Rate 16 /min 01/03/2025 Height-cm 177.8 cm 01/03/2025 Oximetry 98 % 01/03/2025 Blood pressure diastolic 52 mm Hg 01/03/2025 Weight-kg 81.65 kg 01/03/2025 Height 70 in 01/03/2025 Blood pressure systolic 124 mm Hg 01/03/2025 Weight 180 lbs 01/03/2025 BMI 25.82 kg/m2 01/03/2025 Encounters Encounter Location Date Provider Diagnosis [facility] [address] [address] 10/13/2024 Paddy Jacobson [facility] [address] [address] 09/22/2024 Lizz Alan Peripheral vascular disease I73.9 ; Non-pressure chronic ulcer of other part of left lower leg with fat layer exposed L97.822 ; Neuropathy G62.9 and Atrial fibrillation I48.91 [facility] [address] [facility] [address] 09/29/2024 Lizz [place] Peripheral vascular disease I73.9 ; Non-pressure chronic ulcer of other part of left lower leg with fat layer exposed L97.822 ; Neuropathy G62.9 and Atrial fibrillation I48.91 [facility] [address] 10/06/2024 Lizz [place] Peripheral vascular disease I73.9 ; Non-pressure chronic ulcer of other part of left lower leg with fat layer exposed L97.822 ; Neuropathy G62.9 and Atrial fibrillation I48.91 [facility] [address] 10/13/2024 Lizz [place] Peripheral vascular disease I73.9 ; Non-pressure chronic ulcer of other part of left lower leg with fat layer exposed L97.822 ; Neuropathy G62.9 and Atrial fibrillation I48.91 [facility] [address] 10/20/2024 Lizz [place] Peripheral vascular disease I73.9 ; Non-pressure chronic ulcer of other part of left lower leg with fat layer exposed L97.822 ; Neuropathy G62.9 ; Atrial fibrillation I48.91 and Cellulitis of left lower leg L03.116 [facility] [address] 10/27/2024 Lizz [place] Peripheral vascular disease I73.9 ; Non-pressure chronic ulcer of other part of left lower leg with fat layer exposed L97.822 ; Neuropathy G62.9 ; Atrial fibrillation I48.91 and Cellulitis of left lower leg L03.116 [facility] [address] 11/01/2024 Lizz [place] Peripheral vascular disease I73.9 ; Non-pressure chronic ulcer of other part of left lower leg with fat layer exposed L97.822 ; Neuropathy G62.9 ; Atrial fibrillation I48.91 ; Cellulitis of left lower leg L03.116 and Abrasion of great toe, right S90.411A [facility] [address] [address] 11/10/2024 Lizz Alan Peripheral vascular disease I73.9 ; Non-pressure chronic ulcer of other part of left lower leg with fat layer exposed L97.822 ; Neuropathy G62.9 ; Atrial fibrillation I48.91 ; Cellulitis of left lower leg L03.116 and Abrasion of great toe, right S90.411A [facility] [address] [address] 11/24/2024 Lizz Alan Peripheral vascular disease I73.9 ; Non-pressure chronic ulcer of other part of left lower leg with fat layer exposed L97.822 ; Neuropathy G62.9 and Atrial fibrillation I48.[address] [address] 12/01/2024 Lizz Alan Peripheral vascular disease I73.9 ; Neuropathy G62.9 ; Non-pressure chronic ulcer of other part of left lower leg with fat layer exposed L97.822 and Atrial fibrillation I48.91 [place] [address] [address] 12/08/2024 Lizz Alan Pseudomonas (aeruginosa) (mallei) (pseudomallei) as the cause of diseases classified elsewhere B96.5 ; Peripheral vascular disease I73.9 ; Neuropathy G62.9 ; Non-pressure chronic ulcer of other part of left lower leg with fat layer exposed L97.822 and Atrial fibrillation I48.91 [facility] [address] 12/15/2024 Lizz Alan Pseudomonas (aeruginosa) (mallei) (pseudomallei) as the cause of diseases classified elsewhere B96.5 ; Peripheral vascular disease I73.9 ; Neuropathy G62.9 ; Non-pressure chronic ulcer of other part of left lower leg with fat layer exposed L97.822 and Atrial fibrillation I48.91 [facility] [address] [address] 12/22/2024 Lizz Alan Non-pressure chronic ulcer of other part of right lower leg limited to breakdown of skin L97.811 ; Pseudomonas (aeruginosa) (mallei) (pseudomallei) as the cause of diseases classified elsewhere B96.5 ; Peripheral vascular disease I73.9 ; Neuropathy G62.9 ; Non-pressure chronic ulcer of other part of left lower leg with fat layer exposed L97.822 ; Atrial fibrillation I48.91 and Localized edema R60.0 [facility] [address] [facility] [address] [facility] [address] [place] [address] 01/03/2025 [facility] Non-pressure chronic ulcer of other part of right lower leg limited to breakdown of skin L97.811 ; Peripheral vascular disease I73.9 ; Neuropathy G62.9 ; Atrial fibrillation I48.91 ; Non-pressure chronic ulcer of other part of left lower leg with fat layer exposed L97.822 ; Localized edema R60.0 ; Methicillin resistant Staphylococcus aureus infection, unspecified site A49.02 and Methicillin susceptible Staphylococcus aureus infection as the cause of diseases classified elsewhere B95.61 [facility] [address] [address] 10/01/2024 [facility] [address] [address] 09/16/2024 [facility] [address] [address] 10/19/2024 [facility] [address] [place] [address] 10/20/2024 [facility] [address] [place] [address] 10/21/2024 [facility] [address] [place] [address] 10/22/2024 [facility] [address] [address] 11/12/2024 [facility] [address] [address] 12/14/2024 [facility] [address] [address] 12/27/2024 [facility] [address] [place] [address] 12/27/2024 Lizz Alan Assessments Encounter Date Diagnosis (ICD Code) Assessment Notes Treatment Notes Treatment Clinical Notes Section Notes 09/22/2024 Non-pressure chronic ulcer of other part of left lower leg with fat layer exposed (ICD-10 - L97.822) On exam, alert & cooperative with care. We removed the dressing and examined the wound site. He denies pain to the wound but is frustrated with the slow healing progress. We discussed the indication for debridement and he was agreeable. I performed debridement as detailed to remove devitalized tissue and then applied silver nitrate to stop the bleeding. He tolerated the procedures well. There were no findings to indicate any acute underlying infectious processes. I cleaned the wound with wound cleanser and nursing applied zinc to periwound, Adaptic f.b Hydrofera blue classic and DCD. Lastly, his Tubigrip was applied. He would prefer to continue services at our wound clinic, with the understanding that circulation is likely the contributing factor in stalled wound healing. He admits to poor elevation as well, only about 10 minutes a day. We discussed proper elevation above the level of his heart, increased protein supplementation as he can tolerate. We will send the VNA to his home Friday and Fridays for dressing changes, and he will follow up here on Wednesdays in the wound clinic. Angioplasty with Dr. Tenorio scheduled for 09/28/24 per his report. I have requested his records and will review once available. Patient and nursing agree with plan of care and his questions were answered to his satisfaction. He was encouraged to call in the interim w any questions or concerns. I Lizz Alan MSN, AGPCNP- examined, evaluated and treated the patient. Dr. Arnoldo Jacobson was available for any question or concerns that I may have had. 09/22/2024 Peripheral vascular disease (ICD-10 - I73.9) 09/29/2024 Peripheral vascular disease (ICD-10 - I73.9) 10/06/2024 Peripheral vascular disease (ICD-10 - I73.9) 10/13/2024 Peripheral vascular disease (ICD-10 - I73.9) 10/20/2024 Peripheral vascular disease (ICD-10 - I73.9) 10/27/2024 Peripheral vascular disease (ICD-10 - I73.9) 11/01/2024 Peripheral vascular disease (ICD-10 - I73.9) 11/10/2024 Peripheral vascular disease (ICD-10 - I73.9) 11/24/2024 Peripheral vascular disease (ICD-10 - I73.9) 12/01/2024 Peripheral vascular disease (ICD-10 - I73.9) 12/08/2024 Pseudomonas (aeruginosa) (mallei) (pseudomallei) as the cause of diseases classified elsewhere (ICD-10 - B96.5) 12/15/2024 Pseudomonas (aeruginosa) (mallei) (pseudomallei) as the cause of diseases classified elsewhere (ICD-10 - B96.5) 12/22/2024 Non-pressure chronic ulcer of other part of right lower leg limited to breakdown of skin (ICD-10 - L97.811) 01/03/2025 Non-pressure chronic ulcer of other part of right lower leg limited to breakdown of skin (ICD-10 - L97.811) 01/03/2025 Peripheral vascular disease (ICD-10 - I73.9) 12/22/2024 Pseudomonas (aeruginosa) (mallei) (pseudomallei) as the cause of diseases classified elsewhere (ICD-10 - B96.5) 12/15/2024 Peripheral vascular disease (ICD-10 - I73.9) 12/08/2024 Peripheral vascular disease (ICD-10 - I73.9) 12/01/2024 Neuropathy (ICD-10 - G62.9) 11/10/2024 Non-pressure chronic ulcer of other part of left lower leg with fat layer exposed (ICD-10 - L97.822) On exam, alert & cooperative with care. We removed the dressing and examined the wound sites. The wound to his LLE is improving in size and cleaning up nicely, has some new epithelial tissue today. There were no findings to indicate infection; no periwound erythema, warmth, or edema, or odor; there is mild green drainage. We discussed the indication for debridement and he was agreeable. I performed gentle debridement as detailed to remove devitalized tissue as he tolerated after an application of lidocaine. We discussed again elevation, infection, and circulation all potentially being compromising factors towards wound healing. I cleaned the wound with wound cleanser. Nursing then cleansed with dakins and then wound cleanser, applied zinc to periwound, adaptic f/b ag alg and DCD. Lastly, tubi G was applied toes to below this knees per Dr. Tenorio's recomendations of light compression. His R great toe is resolved He has a follow up with Dr. Tenorio scheduled for 11/16 for another angiogram. He will continue working on increasing his protein consuption and elevation. He will discuss pain with his PCP as well as the potential of an [place], [place], or SNF facility to get some additional assistance which his daughter is very much a proponent of. [facility] daughters request. VNA will perform dressing changes Wednesdays and Fridays, cleaning with dakins moist gauze and then rinse with saline; apply zinc to periwound, adaptic f/b aquacel ag and DCD to his LLE. Elevation and compression recommended and discussed at length. He will follow up in two weeks, after another aniogram. Patient, daughter Machelle (who is on the phone during our visit today) and nursing agree with plan of care and his questions were answered to his satisfaction. He was encouraged to call in the interim w any questions or concerns. I spent a total of 50 minutes on this visit, providing direct and indirect care of this patient reviewing records, gathering H&P, counseling the patient on treatment choices, disease process, expected outcomes, formulating plan, evaluation and treatment, education and documentation of findings. I, Lizz Alan MSN, [facility]- examined, evaluated and treated the patient. Dr. Arnoldo Jacobson was available for any question or concerns that I may have had. 11/24/2024 Non-pressure chronic ulcer of other part of left lower leg with fat layer exposed (ICD-10 - L97.822) On exam, alert & cooperative with care. We removed the dressing and examined the wound sites. The wound to his LLE is improving in size and cleaning up nicely, has some new epithelial tissue today. There were no findings to indicate infection; no periwound erythema, warmth, or edema, or odor; there is mod ss drainage, no longer green with concerns for pseudomonas. We discussed the indication for debridement and he was agreeable. I performed gentle debridement as detailed to remove devitalized tissue as he tolerated after an application of lidocaine. I cleaned the wound with wound cleanser. Nursing then cleansed with dakins and then wound cleanser, applied zinc to periwound, adaptic f/b ag alg and DCD. Lastly, tubi G was applied toes to below this knees per Dr. Tenorio's recomendations of light compression. He will continue working on increasing his protein consuption along with compression and elevation. He will discuss pain with his PCP as well as the potential of an alternative medication to aid in pain relief to allow more sleep along with elevation which would improve wound healing. VNA will perform dressing changes Mondays and Fridays, cleaning with dakins moist gauze X 5-10 mins and then rinse with saline; apply zinc to periwound, adaptic f/b aquacel ag and DCD to his LLE. Elevation and compression recommended and discussed at length. He will follow up in about one week for a follow up visit. Patient, son Jus, and nursing agree with plan of care and his questions were answered to his satisfaction. He was encouraged to call in the interim w any questions or concerns. I spent a total of 45 minutes on this visit, providing direct and indirect care of this patient reviewing records, gathering H&P, counseling the patient on treatment choices, disease process, expected outcomes, formulating plan, evaluation and treatment, education and documentation of findings. I, Lizz Alan MSN, [facility]- examined, evaluated and treated the patient. Dr. Arnoldo Jacobson was available for any question or concerns that I may have had. 11/24/2024 Neuropathy (ICD-10 - G62.9) 11/01/2024 Neuropathy (ICD-10 - G62.9) 10/13/2024 Non-pressure chronic ulcer of other part of left lower leg with fat layer exposed (ICD-10 - L97.822) This is his fourth consecutive weekly visit with us at [facility], initial visit 09/22/24 and we have utilized hydrofera blue classic. He is hopeful we can start a new skin substitute today as he feels this worked well in the past at [facility]. He received a total of 7 epicord applications from 03/09/2024-08/23/2024 as well as [facility] in 2021 based on the records I have available. On exam, alert & cooperative with care. We removed the dressing and examined the wound site. He denies pain to the wound. The wound is measruing slightly larger today. ABIs are worse despite recent L SFA angioplasty. He has a follow up with Dr. Tenorio in 5 days. We discussed the indication for debridement and he was agreeable. I performed debridement as detailed to remove devitalized tissue. There were no findings to indicate any acute underlying infectious processes and the green drainage noted last week has resolved nicely. I cleaned the wound with wound cleanser, applied skin prep to the periwound and then applied the first application of X cell amnio matrix amniotic membrane onto the wound bed. Given the size and depth of the wound, the entire piece was utilized. I applied a contact layer bordered with steri strips followed by ca alg and a DCD. He was instructed to leave the contact layer and beneath in place all week with instructions for VNA to change the outer dressing only Mondays and fridays with ca alg and DCD. Given his low TBIs, his tubigrip was not reapplied. He understands the goals of therapy include promoting wound healing, reducing recurrent infection, avoid further surgical interventions to improve his overall quality of life. He would prefer to continue services at our wound clinic, with the understanding that circulation is likely the contributing factor in stalled wound healing. He has a follow up with Dr. Tenorio 10/17 s/p L SFA stent placement 09/28/24. he had Low ABIs in our office today, 10/13/24 which were concerning given his 09/28/24 angioplasty. He will continue working on increasing his protein consuption from 1 egg in the morning to 2 eggs and continue 2 protein drinks daily. He understands he must keep the dressing dry and in place all week, with VNA to change outer layer only. He admits to poor elevation as well, only about 10 minutes a day. We discussed proper elevation above the level of his heart, increased protein supplementation as he can tolerate. He will follow up in 1 week, next Friday back in our wound clinic for evaluation. Patient and nursing agree with plan of care and his questions were answered to his satisfaction. He was encouraged to call in the interim w any questions or concerns. I spent a total of 44 minutes on this visit, providing direct and indirect care of this patient reviewing records, gathering H&P, counseling the patient on treatment choices, disease process, expected outcomes, formulating plan, evaluation and treatment, education and documentation of findings. This case was discussed in entirey with Dr. Jacobson who agrees with my plan of care. I, Lizz Alan MSN, [facility]- examined, evaluated and treated the patient. Dr. Arnoldo Jacobson was available for any question or concerns that I may have had. 10/20/2024 Non-pressure chronic ulcer of other part of left lower leg with fat layer exposed (ICD-10 - L97.822) This is his fifth consecutive weekly visit with us at [facility], initial visit 09/22/24 and we have utilized hydrofera blue classic prior to the first application of X Cell last week. He received a total of 7 epicord applications from 03/09/2024-08/23/2024 as well as [place] in 2021 at [facility] based on the records I have available. On exam, alert & cooperative with care. We removed the dressing and examined the wound site. As stated, the VNA nurse reports the dressing fell off, so adaptic was removed from the wound. He reports more throbbing pain at the wound site since last week. The wound is measuring larger today and has large ss to green drainage, no odor. We discussed the indication for debridement and he was agreeable. I performed debridement as detailed to remove devitalized tissue. We discussed infection vs circulation compromising wound healing; given the worsening wound with green drainage, I did culture the wound. I cleaned the wound with wound cleanser. Nursing then applied zinc to periwound, adaptic f/b ag alg and DCD. He would prefer to continue services at our wound clinic, with the understanding that circulation is likely the contributing factor in stalled wound healing. He reports he was declined from hyperbaric treatment at [facility]. I advised him to reach out to other wound clinics for additional information and eligibility if he and his daughter want to try hyperbarics as we do not provide this service. He mcnamara a follow up with Dr. Tenroio 10/11 s/p L SFA stent placement 09/28/24 and another one scheduled for 11/08. He and his daughter are going to try and move up the appt which I advised given his low ABIs in our office 10/13/24 combined with worsening wound. I will call him with the results of his wound culture and treat if needed. He had Low ABIs in our office 10/13/24 which is concerning given his 09/28/24 [address] Tenorio's note from 10/11/24 with patient and daughter which reflects a possible stenosis to the popliteal fossa. He will continue working on increasing his protein consuption and elevation. VNA will perform dressing changes Mondays and Fridays with zinc to periwound, adaptic f/b aquacel ag and DCD. He admits to poor elevation as well, only about 10 minutes a day. We discussed proper elevation above the level of his heart, increased protein supplementation as he can tolerate. He will follow up in 1 week, next Friday back in our wound clinic for evaluation. Patient and nursing agree with plan of care and his questions were answered to his satisfaction. He was encouraged to call in the interim w any questions or concerns. I spent a total of 50 minutes on this visit, providing direct and indirect care of this patient reviewing records, gathering H&P, counseling the patient on treatment choices, disease process, expected outcomes, formulating plan, evaluation and treatment, education and documentation of findings. I, Lizz Alan MSN, [facility]- examined, evaluated and treated the patient. Dr. Arnoldo Jacobson was available for any question or concerns that I may have had. 10/27/2024 Non-pressure chronic ulcer of other part of left lower leg with fat layer exposed (ICD-10 - L97.822) On exam, alert & cooperative with care. We removed the dressing and examined the wound site. The wound is measuring slightly smaller today no longer has green drainage, edema and erythema are much improved, no odor. We discussed the indication for debridement and he was agreeable. I performed debridement as detailed to remove devitalized tissue. We discussed infection vs circulation compromising wound healing. I cleaned the wound with wound cleanser. Nursing then applied zinc to periwound, adaptic f/b ag alg and DCD. Lastly, tubi G was applied toes to below this knees. per Dr. Tenorio's recomendations of light compression. He had a follow up with Dr. Tenorio 10/26 and 10/27 s/p L SFA stent placement 08/2024 and another one scheduled for 11/08. He will continue working on increasing his protein consuption and elevation. VNA will perform dressing changes Mondays and Fridays with zinc to periwound, adaptic f/b aquacel ag and DCD. I had a 17 minute phone conversation with his daughter Machelle after his visit today. We discussed his wound culture results and the improvement in the appearance while not size of the wound. We discussed the importance of elevation and she reports her father is quite stubborn and is rather immobile and elevates minimally. She reports an agreeance to hold off on treating both bacterias adding another antibiotic today as the wound appears improved and his sxs have improved overall. He went today for his perfusion oxygenation test which revealed marginal at best perfusion, which could be contributing to his stagnant wound healing. They have a 3:45pm phone call scheduled with Dr. Tenorio today to discuss a repeat angiogram vs open heart surgery per Machelle's report. He admits to poor elevation as well, only about 10 minutes a day. We discussed proper elevation above the level of his heart, increased protein supplementation as he can tolerate. I discussed that I read this in his report with Dr. Tenorio as well and encouraged him to increase compliance with elevation and compression per Dr. Tenorio's recommendations. He reports elevation is hard as he has many bills to formulate at his kitchen table. He will complete the doxycycline I prescribed 10/22/24 X 10 days total. He will follow up in 1 week, next Friday back in our wound clinic for evaluation. Patient and nursing agree with plan of care and his questions were answered to his satisfaction. He was encouraged to call in the interim w any questions or concerns. I spent a total of 65 minutes on this visit, providing direct and indirect care of this patient reviewing records, gathering H&P, counseling the patient on treatment choices, disease process, expected outcomes, formulating plan, evaluation and treatment, education and documentation of findings. I, Lizz Alan MSN, [facility]- examined, evaluated and treated the patient. Dr. Arnoldo Jacobson was available for any question or concerns that I may have had. 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 We removed the dressing and examined the wound sites. The wound to his LLE is stable but not measuring smaller. We discussed the indication for debridement and he was agreeable. I performed gentle debridement as detailed to remove devitalized tissue as he tolerated after an application of lidocaine. We discussed again elevation, infection, and circulation all potentially being compromising factors towards wound healing. I cleaned the wound with wound cleanser. Nursing then applied zinc to periwound, adaptic f/b ag alg and DCD. Lastly, tubi G was applied toes to below this knees. per Dr. Tenorio's recomendations of light compression. His R great toe has a superficial abraded area where he reports he stubbed his toe. The area appears to be healing well and without sxs infection; no debridement was necessary or performed. I cleaned the wound with wound cleanser and nursing applied zinc to the periwound, aquacel fb DCD He has a follow up with Dr. Tenorio scheduled for 11/16 for another angiogram. He will continue working on increasing his protein consuption and elevation. He will discuss pain with his PCP as well as the potential of an PA, MS, or SNF facility to get some additional assistance which his daughter is very much a proponent of. He understands that his cortisone shot is an immunosuppressant and could further impair wound healing, but we discussed the risk benefit ratio of his comfort and ability to ambulate vs our current difficulty in healing the wound with impaired circulation VNA will perform dressing changes Mondays and Fridays with zinc to periwound, adaptic f/b aquacel ag and DCD to his LLE and aquacel f/b DCD to his R great toe. We discussed his wound culture results and the improvement in the appearance while not size of the wound. He will complete his doxycycline. We will hold off on additional abt at this time due to the risk factors with levaquin and ciprofloxacin. VNA will obtain labs so I can repeat his BUN and creatinine and dose appropriately next week if necessary. We will repeat a wound culture next week if the wound is not improved and sxs infection still present, but they understand that circulation is likely the primary issue. He will follow up in 1 week, next Friday back in our wound clinic for evaluation, VNA to perform dressing changes Wednesdays and Fridays. Patient and nursing agree with plan of care and his questions were answered to his satisfaction. He was encouraged to call in the interim w any questions or concerns. I spent a total of 62 minutes on this visit, providing direct and indirect care of this patient reviewing records, gathering H&P, counseling the patient on treatment choices, disease process, expected outcomes, formulating plan, evaluation and treatment, education and documentation of findings. ILizz MSN, [facility]- examined, evaluated and treated the patient. Dr. Arnoldo Jacobson was available for any question or concerns that I may have had. 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 We removed the dressing and examined the wound site. He denies pain to the wound and is hopeful the area is starting to heal. The wound is measuring smaller today. We discussed the indication for debridement and he was agreeable. I performed debridement as detailed to remove devitalized tissue. There were no findings to indicate any acute underlying infectious processes. I cleaned the wound with wound cleanser and nursing applied zinc to periwound, Adaptic f.b Hydrofera blue classic and DCD. Lastly, his Tubigrip was applied. He would prefer to continue services at our wound clinic, with the understanding that circulation is likely the contributing factor in stalled wound healing. He has a follow up with Dr. Tenorio in September s/p L SFA stent placement 09/28/24. He admits to poor elevation as well, only about 10 minutes a day. We discussed proper elevation above the level of his heart, increased protein supplementation as he can tolerate. We will send the VNA to his home Friday and Fridays for dressing changes, and he will follow up here on Wednesdays in the wound clinic. Patient and nursing agree with plan of care and his questions were answered to his satisfaction. He was encouraged to call in the interim w any questions or concerns. Andriy Alan MSN, [facility]- examined, evaluated and treated the patient. Dr. Arnoldo Jacobson was available for any question or concerns that I may have had. 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 We removed the dressing and examined the wound site. He denies pain to the wound and is hopeful the area is starting to heal. The wound is stable in size today but not measuring smaller. We discussed the indication for debridement and he was agreeable. I performed debridement as detailed to remove devitalized tissue. There were no findings to indicate any acute underlying infectious processes aside from green drainage to the dressing when the wound was removed. I cleaned the wound with wound cleanser, applied ag nitrate to stimulate the wound bed and stop bleeding and then applied dakins moist gauze. I removed and then applied normal saline to clean the wound and nursing applied zinc to periwound, Adaptic f.b Hydrofera blue classic and DCD. Lastly, his Tubigrip was applied. He would prefer to continue services at our wound clinic, with the understanding that circulation is likely the contributing factor in stalled wound healing. He has a follow up with Dr. Tenorio in September s/p L SFA stent placement 09/28/24. He will try to increase his protein consuption from 1 egg in the morning to 2 eggs and continue 2 protein drinks daily. We will submit for preapproval of a biologic healing agent in hopes to improve wound healing as he reports this worked well in the past at [facility]. He admits to poor elevation as well, only about 10 minutes a day. We discussed proper elevation above the level of his heart, increased protein supplementation as he can tolerate. We will send the VNA to his home Friday and Fridays for dressing changes, and he will follow up here on Wednesdays in the wound clinic. Patient and nursing agree with plan of care and his questions were answered to his satisfaction. He was encouraged to call in the interim w any questions or concerns. I spent a total of 34 minutes on this visit, providing direct and indirect care of this patient reviewing records, gathering H&P, counseling the patient on treatment choices, disease process, expected outcomes, formulating plan, evaluation and treatment, education and documentation of findings I Lizz Alan MSN, AGNP- examined, evaluated and treated the patient. Dr. Arnoldo Jacobson was available for any question or concerns that I may have had. 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 We removed the dressing and examined the wound sites. The wound to his LLE continues to improve. There were no findings to indicate infection; no periwound erythema, warmth, or edema, or odor; there is light green to serous drainage without any foul odor noted. We discussed the indication for debridement and he was agreeable. I performed gentle debridement as detailed to remove devitalized tissue as he tolerated after an application of lidocaine. I cleaned the wound with wound cleanser. Nursing then cleansed with dakins and then wound cleanser, applied zinc to periwound, adaptic f/b ag alg and DCD. Lastly, tubi G was applied toes to below this knees per Dr. Tenorio's recomendations of light compression. He will continue working on increasing his protein consuption along with compression and elevation. VNA will perform dressing changes Mondays and Fridays, cleaning with dakins moist gauze X 5-10 mins and then rinse with saline; apply zinc to periwound, adaptic f/b aquacel ag and DCD to his LLE. Elevation and compression with tubi G on in AM off @ HS, elevate whenever possible. He will follow up in about one week for a follow up visit. Patient and nursing agree with plan of care and his questions were answered to his satisfaction. He was encouraged to call in the interim w any questions or concerns. I spent a total of 32 minutes on this visit, providing direct and indirect care of this patient reviewing records, gathering H&P, counseling the patient on treatment choices, disease process, expected outcomes, formulating plan, evaluation and treatment, education and documentation of findings. I, Lizz Alan MSN, [facility]- examined, evaluated and treated the patient. Dr. Arnoldo Jacobson was available for any question or concerns that I may have had. 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 We removed the dressing and examined the wound sites. The wound to his LLE is stable but not measuring smaller today. There were no findings to indicate infection; no periwound erythema, warmth, or edema, or odor; there is some green to SS drainage without any foul odor noted. We discussed the indication for debridement and he was agreeable. I performed gentle debridement as detailed to remove devitalized tissue as he tolerated after an application of lidocaine. I cleaned the wound with wound cleanser. Nursing then cleansed with dakins and then wound cleanser, applied zinc to periwound, adaptic f/b ag alg and DCD. Lastly, tubi G was applied toes to below this knees per Dr. Tenorio's recomendations of light compression. He will continue working on increasing his protein consuption along with compression and elevation. VNA will perform dressing changes Mondays and Fridays, cleaning with dakins moist gauze X 5-10 mins and then rinse with saline; apply zinc to periwound, adaptic f/b aquacel ag and DCD to his LLE. Elevation and compression with tubi G on in AM off @ HS, elevate whenever possible. I will get labs 12/10 to get kidney functions in the event I place him on abt next week for psudomonas as his culture was positive for it in the past as well as his green drainage to the wound site. I am concerned how his kidneys will tolerate a floroquinolone, so want to recheck BUN and Creat. He will follow up in about one week for a follow up visit. Patient and nursing agree with plan of care and his questions were answered to his satisfaction. He was encouraged to call in the interim w any questions or concerns. I spent a total of 30 minutes on this visit, providing direct and indirect care of this patient reviewing records, gathering H&P, counseling the patient on treatment choices, disease process, expected outcomes, formulating plan, evaluation and treatment, education and documentation of findings. I, Lizz Alan MSN, [facility]- examined, evaluated and treated the patient. Dr. Arnoldo Jacobson was available for any question or concerns that I may have had. 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 We removed the dressing and examined the wound sites. The wound to his LLE is stable but not measuring smaller today. There were no findings to indicate infection; no periwound erythema, warmth, or edema, or odor; there is some green to SS drainage without any foul odor noted. The wound has no eschar or dark tissue today and has mixed granular tissue and slough, more granular tissue. The new tape tear to his distal LLE is resolved today. We discussed the indication for debridement and he was agreeable. I performed gentle debridement as detailed to remove devitalized tissue as he tolerated after an application of lidocaine. I cleaned the wound with wound cleanser and obtained a wound culture just to see if the psuedomonas is still present. Nursing then cleansed with dakins and let sit for 10 mins and then wound cleanser, applied zinc to periwound, adaptic f/b ag alg and DCD. Lastly, tubi G was applied toes to below this knees per Dr. Tenorio's recomendations of light compression. I then examined his RLE where he has +3 pitting edema with multiple pinpoint areas of weeping serous fluid. There is no defined open granular tissue and this appears more fluid related vs infection, particularly as he admits to not elevating his legs. I cannot safely apply compression with a R GE of 0.64, so opted out of this. I cleaned the leg with wound cleanser and nursing applied zinc f.b abd and reagan He will continue working on increasing his protein consuption along with compression and elevation. VNA will perform dressing changes Wednesdays and Fridays, cleaning with dakins moist gauze X 10 mins (additional reinforcement request will be sent their way today as Fabio reports this is not getting done) and then rinse with saline; apply zinc to periwound, adaptic f/b aquacel ag and DCD to his LLE. For his RLE, apply zinc f.b abd and reagan wrap. I encouraged him to call Dr. Tenorio, report his acute RLE weeping and edema and see if a sooner appt is available. Elevation and compression with tubi G on in AM off @ HS, elevate whenever possible to his LLE and elevation to his RLE. Given the risk of tendon rupture and inflammation w floroquinolones, he and his daughter are hesitant to be placed on additional abt given his flat WBC count. We will continue the dakins soak and determine a plan of care thereafter based on his culture results. He will follow up in about two weeks for a follow up visit. Patient and nursing agree with plan of care and his questions were answered to his satisfaction. He was encouraged to call in the interim w any questions or concerns. I spent a total of 32 minutes on this visit, providing direct and indirect care of this patient reviewing records, gathering H&P, counseling the patient on treatment choices, disease process, expected outcomes, formulating plan, evaluation and treatment, education and documentation of findings. I, Lizz Alan MSN, [facility]- examined, evaluated and treated the patient. Dr. Arnoldo Jacobson was available for any question or concerns that I may have had. 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 We removed the dressing and examined the wound sites. The wound to his LLE is stable but not measuring smaller today. There were no findings to indicate infection; no periwound erythema, warmth, or edema, or odor; there is some green to SS drainage without any foul odor noted. The wound has no eschar or dark tissue today and has mixed grfanular tissue and slough. He does have a new tape tare to his distal LLE. We discussed the indication for debridement and he was agreeable. I performed gentle debridement as detailed to remove devitalized tissue as he tolerated after an application of lidocaine. I cleaned the wound with wound cleanser. Nursing then cleansed with dakins and let sit for 10 mins and then wound cleanser, applied zinc to periwound, adaptic f/b ag alg and DCD. Lastly, tubi G was applied toes to below this knees per Dr. Tenorio's recomendations of light compression. He will continue working on increasing his protein consuption along with compression and elevation. VNA will perform dressing changes Mondays and Fridays, cleaning with dakins moist gauze X 10 mins (additional reinforcement request will be sent their way today as Fabio reports this is not getting done) and then rinse with saline; apply zinc to periwound, adaptic f/b aquacel ag and DCD to his LLE. Elevation and compression with tubi G on in AM off @ HS, elevate whenever possible. Given the risk of tendon rupture and inflammation w floroquinolones, he and his daughter are hesitant to be placed on additional abt given his flat WBC count. We will first try conservative measures with the dakins soak, 10 full minutes. He will follow up in about one week for a follow up visit. Patient, daughter Machelle, and nursing agree with plan of care and his questions were answered to his satisfaction. He was encouraged to call in the interim w any questions or concerns. I spent a total of 39 minutes on this visit, providing direct and indirect care of this patient reviewing records, gathering H&P, counseling the patient on treatment choices, disease process, expected outcomes, formulating plan, evaluation and treatment, education and documentation of findings. I, Lizz Alan MSN, [facility]- examined, evaluated and treated the patient. Dr. Arnoldo Jacobson was available for any question or concerns that I may have had. 12/01/2024 Atrial fibrillation (ICD-10 - I48.91) 11/10/2024 Atrial fibrillation (ICD-10 - I48.91) 11/01/2024 Cellulitis of left lower leg (ICD-10 - L03.116) 10/27/2024 Atrial fibrillation (ICD-10 - I48.91) 10/06/2024 Atrial fibrillation (ICD-10 - I48.91) 10/13/2024 Atrial fibrillation (ICD-10 - I48.91) 10/20/2024 Cellulitis of left lower leg (ICD-10 - L03.116) addendum 10/22/24 patients daughter Shawna called and requesting antibiotics, feels the wound is worsening and reports new wounds, 12/09 pain. Denies fever. I recommended ED for additional evaluation and treatment but they are refusing. I educated sxs infection, asked them to [place] area; instructed to go to ED if fever > 101 or erythema goes beyond marking. Culture obtained 10/20 still pending. Placed on doxycycline 100mg BID X 10 days. 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 We removed the dressing and examined the wound sites. The wound to his LLE is 0.4cm smaller overall and appears improved. There were no findings to indicate infection; no periwound erythema, warmth, or edema, or odor; there is still some green to SS drainage without any foul odor noted, but his culture was positive for staph aureus and MRSA vs presumed pseudomonas. I discussed the indication for debridement and he was agreeable. I performed gentle debridement as detailed to remove devitalized tissue as he tolerated after an application of lidocaine. I cleaned the wound with wound cleanser and then cleansed with dakins and let sit for 10 mins and then wound cleanser, applied zinc to periwound, adaptic f/b ag alg and DCD. Lastly, tubi G was applied toes to below this knees per Dr. Tenorio's recomendations of light compression. I then examined his RLE where he has +1 edema with dry flaking skin, no open wounds. I cleaned the leg with wound cleanser, nursing applied ammonium lactate and nursing applied a light tubigrip He will continue working on increasing his protein consuption, salt reduction along with compression and elevation. VNA will perform dressing changes Wednesdays and Fridays, cleaning with dakins moist gauze X 10 mins and then rinse with saline; apply zinc to periwound, adaptic f/b aquacel ag and DCD to his LLE. For his RLE, apply ammonium lactate fb tubigrip daily, on in AM and off @ HS. Elevation and compression with tubi G on in AM off @ HS, elevate whenever possible to his LLE and elevation to his RLE. Given the risk of tendon rupture and inflammation w floroquinolones, he and his daughter and son are hesitant to be placed on additional abt given his flat WBC count. We will continue the dakins soak and determine a plan of care thereafter based on his culture results. We discussed that the minocycline will target the MRSA but not the staph aureus. He will follow up in about two weeks for a follow up visit. Patient and nursing agree with plan of care and his questions were answered to his satisfaction. He was encouraged to call in the interim w any questions or concerns. I spent a total of 35 minutes on this visit, providing direct and indirect care of this patient reviewing records, gathering H&P, counseling the patient on treatment choices, disease process, expected outcomes, formulating plan, evaluation and treatment, education and documentation of findings. I, Lizz Alan MSN, [facility]- examined, evaluated and treated the patient. Dr. Arnoldo Jacobson was available for any question or concerns that I may have had. 01/03/2025 Localized edema (ICD-10 - R60.0) 12/22/2024 Atrial fibrillation (ICD-10 - I48.91) 01/03/2025 Methicillin resistant Staphylococcus aureus infection, unspecified site (ICD-10 - A49.02) 12/22/2024 Localized edema (ICD-10 - R60.0) 11/10/2024 Abrasion of great toe, right (ICD-10 - S90.411A) 01/03/2025 Methicillin susceptible Staphylococcus aureus infection as the cause of diseases classified elsewhere (ICD-10 - B95.61) 09/22/2024 Other 10/13/2024 Cortez Mccarthy returned today for his follow-up appointment. As noted he has previously been managed at another wound care center. There, he was initially treated conservatively and subsequently began receiving treatment with the use of a membrane graft.. He has requested that his care be transferred to our facility. Initialy he was treated conservatively at [facility]. His wounds have remained stable and infact ar emesuring larger. As noted he is undergoing vascular workup through [facility]. Given that had previously been treated with an amniotic membrane we obtained preapproval and will start treatment witha an Amniotic membrane. We chase be using Xcell amnio matrix as we do not carry Epicord. This had been discussed with Fabio. Today after performing debridement of the wound site as noted in Lizz Alan NP applied 16 cm2 to cover the 19 cm2 post debridement open wound site. We did not have a larger piece available. Next we will use a larger piece. Today was the first application of Xcell Amnio matrix. IPaddy MD confirm that CHEN White, understands and adheres to the guidelines of the established clinical protocols in the office. I confirm the above care provided was rendered under my general supervision as initially planned and subsequently discussed and supervised by me. 10/20/2024 Other Paddy Ashraf MD confirm that CHEN White, understands and adheres to the guidelines of the established clinical protocols in the office. I confirm the above care provided was rendered under my general supervision as initially planned and subsequently discussed and supervised by me. 10/27/2024 Other Paddy Ashraf MD confirm that CHEN White, understands and adheres to the guidelines of the established clinical protocols in the office. I confirm the above care provided was rendered under my general supervision as initially planned and subsequently discussed and supervised by me. 11/01/2024 Other Paddy Ashraf MD confirm that CHEN White, understands and adheres to the guidelines of the established clinical protocols in the office. I confirm the above care provided was rendered under my general supervision as initially planned and subsequently discussed and supervised by me. Plan Of Treatment No Information Insurance Providers Payer Name Payer Address Payer Phone Subscriber Number Group Number Insured Name Patient Relationship to Insured Coverage Start Date Coverage End Date Medicare [address] MICHAEL ZAMORANO [id number] Fabio Javed Self - patient is the insured 7 [facility] [address] [place], [place] [phone] [id number] Fabio Javed Self - patient is the insured 7 Medical (General) History Medical History History ICD Code Unspecified open wound, left lower leg, initial encounter S81.802A Cellulitis L03.90 Ganglion, left hand M67.442 Peripheral venous insufficiency I87.2 Hypertension I10 Unsteadiness on feet R26.81 Other benign neoplasm of skin, unspecifi ed D23.9 Peripheral vascular disease I73.9 Localized edema R60.0 Nonrheumatic aortic (valve) stenosis I35 .0 Low back pain M54.50 Atrial fibrillation I48.91 Basal cell carcinoma of skin of right lo wer limb, including hip C44.712 BPH (benign prostatic hyperplasia) N40.0 Presence of right artificial hip joint Z 96.641 Arthritis M19.90 Neuropathy G62.9 GERD (gastroesophageal reflux disease) K 21.9 Aortic stenosis I35.0 Anemia D64.9 detention (current) use of anticoagulant s Z79.01 Surgical History Surgery Date(Month/Year) Total hip arthroplasty Right Right peroneal artery angioplasty
--- OUTSIDE RECORDS SUMMARY | 2025-02-04 06:21 | XMS_ITS | Patient Health Record ---
Author Organization [facility] Address [address] [place] [address] Care Team Providers Care Hogshead Dumper Name Role Phone Chase Hernandez MD Primary Care Provider Ruben Back Jr Unavailable Reason For Referral No Information Medications Medication SIG (Take, Route, Frequency, Duration) Notes Start Date End Date Status Xarelto 20 MG 1 tablet Orally Once a day Active Atorvastatin Calcium 20 MG 1 tablet Oral ly Once a day Active Glucosamine Active Metoprolol Succinate ER 50 MG 1 tablet Orally Once a day Active Colyte with Flavor Packs 240 GM As directed Orally Over the specified time. for 1 day(s) 11/19/2018 Active Immunizations Vaccine Route Administration Date Status Comme nts Influenza Unknown 04/02/2018 Administered Social History Tobacco Use: Social History Observation Description Date Details (start date - stop date) Former Smoker NA - NA Tobacco Use/Smoking Question Answer Notes Patient is a former smoker When did you stop smoking? 37 years ago How long has it been since you last smoked? > 10 years Alcohol Screen Question Answer Notes Did you have a drink containing alcohol in the p ast year? No Points 0 Interpretation Negative Section Notes: stopped drinking 11 years ag o Plan Of Treatment Future Test Test Name Order Date COLONOSCOPY 11/19/2018 Insurance Providers Payer Name Payer Address Payer Phone Subscriber Number Group Number Insured Name Patient Relationship to Insured Coverage Start Date Coverage End Date MEDICARE OF [place] [address] [place] [address] [id number] ALONA BOWEN Self - patient is the insured [facility] [address] [place] [address] [id number] ALONA BOWEN Self - patient is the insured Medical (General) History Medical History History ICD Code Atrial fibrillation elevated cholesterol degenerative joint disease Surgical History Surgery Date(Month/Year) hip replacement right left knee surgery november comkatie g claudy appendectomy
[2025-02-04 06:22] LABS: MANUAL DIFF FLAG NO
[2025-02-04 07:41] LABS: Hematocrit 27.6 % (42.0-52.0); Hemoglobin 8.8 g/dl (14.0-18.0); Imm Gran Abs Auto 0.02 X10*3/uL (0.00-0.03); Imm Gran Pct Auto 0.4 % (0.0-0.4); Lymphocytes Absolute Auto 3.3 X10*3/uL (1.2-4.9); Mean Corpuscular HGB Conc 31.9 g/dl (31.0-36.0); Mean Corpuscular Hemoglobin 29.3 pg (27.0-33.0); Mean Corpuscular Volume 92.0 fL (80.0-98.0); NRBC Abs Auto 0.000 X10*3/uL (0.0-0.012); NRBC Pct Auto 0.0 /100WBC (0.0-0.2); Platelet Count 335 X10*3/uL (160-400); Red Blood Count 3.00 X10*6/uL (4.60-5.80); White Blood Count 5.5 X10*3/uL (4.8-10.8)
[2025-02-04 08:14] LABS: Alanine Aminotransferase 20 U/L (0-40); Albumin Level 2.5 g/dL (3.5-5.0); Alkaline Phosphatase 58 U/L (39-117); Anion Gap 11 (12-20); Aspartate Amino Transferase 33 U/L (5-37); Blood Urea Nitrogen 18 mg/dL (9-16); Calcium 7.8 mg/dL (8.4-10.2); Carbon Dioxide 21 mmol/L (22-29); Chloride 113 mmol/L (96-108); Estimated Glomerular Filt Rate > 60; Potassium 3.5 mmol/L (3.3-5.1); Sodium 141 mmol/L (135-145); Total Protein 5.0 g/dL (6.5-8.0)
[2025-02-04 08:30] LABS: Thyroid Stimulating Hormone 5.82 uIU/mL (0.32-4.0)
== END 2025-02-04 06:17 | disposition home or self-care (01) ==
LOC: HO.HSH3N 06:16
PROVIDERS: Visit Provider Internal Medicine
DX: I50.22 Chronic systolic (congestive) heart failure (principal); D64.9 Anemia, unspecified; Z11.1 Encounter for screening for respiratory tuberculosis
CPT/HCPCS: 36415; 80053; 84443; 85025; 86481

== ENCOUNTER 2025-02-16 07:08 | Outpatient (REF) | payer MEDICARE, OTHER, SELFPAY ==
--- OUTSIDE RECORDS SUMMARY | 2025-01-19 09:00 | XMS_ITS ---
Author Organization [facility] Address [address] [facility] [address] [place] [address] Care Team Providers Care Attending Urologist Name Role Phone Fran Pang MD Primary Care Provider Lizz Alexis Unavailable [phone] REASON FOR VISIT Follow up wound care Encounters Encounter Location Date Provider Diagnosis [facility] [address] [facility] [address] [place] [address] 01/19/2025 Lizz Alan Plan Of Treatment No Information Progress Notes * Fabio BOWENDOB:1940 (84 yo M)Acc No.[id number]:01/19/2025 Follow-Up Visit Patient: Fabio PHAM Provider: Darya Alan NP :1940 A ge:84 Y S ex:Male Date:01/19/2025 Address:[address] [place], [place] [id number] Pcp:Fran Pang MD Subjective: * Chief Complaints: * 1 . Follow up wound care. * Medical History: Objective: * Vitals: Assessment: Plan: * Treatment: * Billing Information: * Visit Code: * Procedure Codes: * Electronic signature of Jeane Alan NP on 02/16/2025 at 07:10 AM EDT Sign off status: Pending * Provider: Darya Alan NP Date: 01/19/2025 Generated for Lan cedeño/Gudelia/Clariceitting on: 02/16/2025 07:10 AM EDT
--- OUTSIDE RECORDS SUMMARY | 2025-02-16 07:10 | XMS_ITS | Clinical Summary ---
Author Organization [facility] it Address [address] [place] [address] Care Team Providers Care Senior Compliance Analyst Name Role Phone Chase Hernandez MD Primary [...] age to complete this topic Care Teams Senior Compliance Analyst Relationship Specialty Start Date End Date Chase Hernandez MD [address] [place] [address] [address] [place] PCP - General Endocrinology 09/14/15
--- OUTSIDE RECORDS SUMMARY | 2025-02-16 07:10 | XMS_ITS | Patient Health Record ---
Author Organization [facility] Address [address] [place] [address] Care Team Providers Care Handbag Designer Name Role Phone Chase Hernandez MD Primary Care Provider Caleb Hadley Unavailable [phone] Reason For Referral No Information Medications Medication [...] atherosclerosis of arteries of lower limbs (disorder) (25822403023418441 ) Atherosclerosis of [place] artery of both lower extremities, with unspecified presence of clinical manifestation (I70.203) Active confirmed Plan Of Treatment Pending Test Test Name Order Date , -01/04/2020 Insurance Providers Payer Name Payer Address Payer Phone Subscriber Number Group Number Insured Name Patient Relationship to Insured Coverage Start Date Coverage End Date Medicare National [employer] [address] [facility] [place] [address] [id number] Fabio Javed Self - patient is the insured [employer] [address] [place] [phone] [id number] Fabio Javed Self - patient is the insured Medical (General) History Medical History History ICD Code Arthritis Cataracts Measles A Fib Surgical History Surgery Date(Month/Year) Hip Replacement 07/30/2010
--- OUTSIDE RECORDS SUMMARY | 2025-02-16 07:10 | XMS_ITS | Patient Health Record ---
Author Organization [facility] Address [address] [place] [address] Care Team Providers Care Hollow Tile Partition Erector Name Role Phone Chase Hernandez MD Primary [...] Date MEDICARE OF [place] [address] [place] [address] [id number] ALONA BOWEN Self - patient is the insured [facility] [address] [place] [address] [id number] ALONA BOWEN Self - patient is the insured Medical (General) History Medical History History ICD Code Atrial fibrillation elevated cholesterol degenerative joint disease Surgical History Surgery Date(Month/Year) hip replacement right left knee surgery november comkatie g claudy appendectomy
--- OUTSIDE RECORDS SUMMARY | 2025-02-16 07:10 | XMS_ITS | Clinical Summary ---
Author Organization [employer] Address [address] [facility] [facility] [address] [place] [address] Care Team Providers Care Musculoskeletal Physician Name Role Phone Unavailable Primary Care Provider [...] - 1-dose 75+ series) 2017 COVID-19 Vaccine (1 - 2023-2 5 season) 2025 Influenza Vaccine [...]
--- OUTSIDE RECORDS SUMMARY | 2025-02-16 07:10 | XMS_ITS | Encounter Summary ---
Author Organization [employer] Address [address] [place] [address] Care Team Providers Care Rn Clinical Name Role Phone Unavailable Primary Care Provider Unavailabl e Encounter Details Date Type Department Care Team (Latest Contact Info) Description 05/10/2019 Abstract [facility] CONVERSIONS Dental, Provider, DDS Social History Tobacco [...]
--- OUTSIDE RECORDS SUMMARY | 2025-02-16 07:10 | XMS_ITS | Clinical Summary ---
Author Organization [facility] [employer] [facility] Address [address] [place] [address] Care Team Providers Care Staff Analyst Name Role Phone Chase Hernandez MD [...] to complete this topic Care Teams Staff Analyst Relationship Specialty Start Date End Date Chase Hernandez MD [address] [place] [address] [address] [place] [address] PCP - General Community Planner 02/05/17
--- OUTSIDE RECORDS SUMMARY | 2025-02-16 07:11 | XMS_ITS | Patient Health Record ---
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.5) Active confirmed Problem Cancer of skin of lower limb, basal cell (619339554) Basal cell carcinoma of skin of right lower limb, including hip (C44.712) Active confirmed Problem Aortic valve disorder (4731993) Nonrheumatic aortic (valve) stenosis (I35.0) Active confirmed Problem Chronic ulcer of lower extremity (79353193) Non-pressure chronic ulcer of other part of right lower leg limited to breakdown of skin (L97.811) Active confirmed Problem 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) Active confirmed Problem Abnormal gait (84069780) Unsteadiness on feet (R26.81) Active confirmed Problem Localized edema (3671319) Localized edema (R60.0) Active confirmed Problem Long-term current use of anticoagulant (626265322) terminal supervisor (current) use of anticoagulants (Z79.01) Active confirmed Problem Total hip replacement Prosthesis (132505974) Presence of right artificial hip joint (Z96.641) Active confirmed Problem Peripheral vascular disease (156043328) Peripheral vascular disease (I73.9) Active confirmed Problem Neuropathy (458805733) Neuropathy (G62.9) Active confirmed Problem Arthritis (0155414) Arthritis (M19.90) Active confirmed Problem Hypertension (47799256) Hypertension (I10) Active confirmed Problem Gastroesophageal reflux disease (622253834) GERD (gastroesophageal reflux disease) (K21.9) Active confirmed Problem Benign prostatic hyperplasia (123974758) BPH (benign prostatic hyperplasia) (N40.0) Active confirmed Problem Atrial fibrillation (33825675) Atrial fibrillation (I48.91) Active confirmed Problem Anemia (965083637) Anemia (D64.9) Active confir med Problem Peripheral venous insufficiency (58639994) Peripheral venous insufficiency (I87.2) Active confirmed Problem Cellulitis of left lower leg (31587073372985) Cellulitis of left lower leg (L03.116) Active [...] 01/03/2025 Encounters Encounter Location Date Provider Diagnosis [facility] [address] [address] 10/13/2024 Paddy Jacobson [facility] [address] [address] 09/22/2024 Lizz Alan Peripheral vascular disease I73.9 ; Non-pressure chronic ulcer of other part of left lower leg with fat layer exposed L97.822 ; Neuropathy G62.9 and Atrial fibrillation I48.91 [facility] [address] [facility] 09/29/2024 Lizz [employer] Peripheral vascular disease I73.9 ; Non-pressure chronic ulcer of other part of left lower leg with fat layer exposed L97.822 ; Neuropathy G62.9 and Atrial fibrillation I48.91 [facility] [address] 10/06/2024 Lizz [employer] Peripheral vascular disease I73.9 ; Non-pressure chronic ulcer of other part of left lower leg with fat layer exposed L97.822 ; Neuropathy G62.9 and Atrial fibrillation I48.91 [facility] [address] 10/13/2024 Lizz [employer] Peripheral vascular disease I73.9 ; Non-pressure chronic ulcer of other part of left lower leg with fat layer exposed L97.822 ; Neuropathy G62.9 and Atrial fibrillation I48.91 [facility] [address] 10/20/2024 Lizz [employer] Peripheral vascular disease I73.9 ; Non-pressure chronic ulcer of other part of left lower leg with fat layer exposed L97.822 ; Neuropathy G62.9 ; Atrial fibrillation I48.91 and Cellulitis of left lower leg L03.116 [facility] [address] 10/27/2024 Lizz [employer] Peripheral vascular disease I73.9 ; Non-pressure chronic ulcer of other part of left lower leg with fat layer exposed L97.822 ; Neuropathy G62.9 ; Atrial fibrillation I48.91 and Cellulitis of left lower leg L03.116 [facility] [address] 11/01/2024 Lizz [employer] Peripheral vascular disease I73.9 ; Non-pressure chronic ulcer of other part of left lower leg with fat layer exposed L97.822 ; Neuropathy G62.9 ; Atrial fibrillation I48.91 ; Cellulitis of left lower leg L03.116 and Abrasion of great toe, right S90.411A [facility] [address] [address] 11/10/2024 Lizz Alan Peripheral vascular disease I73.9 ; Non-pressure chronic ulcer of other part of left lower leg with fat layer exposed L97.822 ; Neuropathy G62.9 ; Atrial fibrillation I48.91 ; Cellulitis of left lower leg L03.116 and Abrasion of great toe, right S90.411A [facility] [address] [address] 11/24/2024 Lizz Alan Peripheral vascular disease I73.9 ; Non-pressure chronic ulcer of other part of left lower leg with fat layer exposed L97.822 ; Neuropathy G62.9 and Atrial fibrillation I48.[address] [address] 12/01/2024 Lizz Alan Peripheral vascular disease I73.9 ; Neuropathy G62.9 ; Non-pressure chronic ulcer of other part of left lower leg with fat layer exposed L97.822 and Atrial fibrillation I48.91 [place] [address] [address] 12/08/2024 Lizz Alan Pseudomonas (aeruginosa) (mallei) (pseudomallei) as the cause of diseases classified elsewhere B96.5 ; Peripheral vascular disease I73.9 ; Neuropathy G62.9 ; Non-pressure chronic ulcer of other part of left lower leg with fat layer exposed L97.822 and Atrial fibrillation I48.91 [facility] [address] 12/15/2024 Lizz lAan Pseudomonas (aeruginosa) (mallei) (pseudomallei) as the cause of diseases classified elsewhere B96.5 ; Peripheral vascular disease I73.9 ; Neuropathy G62.9 ; Non-pressure chronic ulcer of other part of left lower leg with fat layer exposed L97.822 and Atrial fibrillation I48.91 [facility] [address] [address] 12/22/2024 Lizz Alan Non-pressure chronic ulcer of [...] Atrial fibrillation I48.91 and Localized edema R60.0 [facility] [address] [address] 01/03/2025 [facility] Non-pressure chronic ulcer of other part of [...] the cause of diseases classified elsewhere B95.61 [facility] [address] [address] 09/16/2024 [facility] [address] [facility] [address] [place] [address] 10/01/2024 [facility] [address] [address] 10/19/2024 [facility] [address] [place] [address] 10/20/2024 [facility] [address] [place] [address] 10/21/2024 [facility] [address] [place] [address] 10/22/2024 [facility] [address] [address] 11/12/2024 [facility] [address] [address] 12/14/2024 [facility] [address] [address] 12/27/2024 [facility] [address] [place] [address] 12/27/2024 Lizz Alan Assessments Encounter Date Diagnosis [...] documentation of findings. I, Lizz Alan MSN, [facility]- examined, evaluated and treated the patient. Dr. [...] documentation of findings. I, Lizz Alan MSN, [facility]- examined, evaluated and treated the patient. Dr. Arnoldo Jacobson was available for any question or concerns that I may have had. 11/24/2024 Neuropathy (ICD-10 - G62.9) 11/01/2024 Neuropathy (ICD-10 - G62.9) 10/13/2024 Non-pressure chronic ulcer of other part of left lower leg with fat layer exposed (ICD-10 - L97.822) This is his fourth consecutive weekly visit with us at [facility], initial visit 09/22/24 and we have utilized hydrofera blue classic. He is hopeful we can start a new skin substitute today as he feels this worked well in the past at [facility]. He received a total of 7 epicord applications from 03/09/2024-08/23/2024 as well as [facility] in 2021 based on the records I [...] plan of care. I, Lizz Alan MSN, [facility]- examined, evaluated and treated the patient. Dr. Arnoldo Jacobson was available for any question or concerns that I may have had. 10/20/2024 Non-pressure chronic ulcer of other part of left lower leg with fat layer exposed (ICD-10 - L97.822) This is his fifth consecutive weekly visit with us at [facility], initial visit 09/22/24 and we have utilized hydrofera blue classic prior to the first application of X Cell last week. He received a total of 7 epicord applications from 03/09/2024-08/23/2024 as well as [place] in 2021 at [facility] based on the records I have [...] he was declined from hyperbaric treatment at [facility]. I advised him to reach out to other wound clinics for additional information and eligibility if he and his daughter want to try hyperbarics as we do not provide this service. He mcnamara a follow up with Dr. Tenorio 10/11 s/p L SFA stent placement 09/28/24 [...] documentation of findings. I, Lizz Alan MSN, [facility]- examined, evaluated and treated the patient. Dr. [...] documentation of findings. I, Lizz Alan MSN, [facility]- examined, evaluated and treated the patient. Dr. [...] as well as the potential of an MS, ID, or SNF facility to get some additional [...] education and documentation of findings. ILizz MSN, [facility]- examined, evaluated and treated the patient. Dr. [...] any questions or concerns. Andriy Alan MSN, [facility]- examined, evaluated and treated the patient. Dr. [...] this worked well in the past at [facility]. He admits to poor elevation [...] treatment, education and documentation of findings. I, Lziz Alan MSN, [facility]- examined, evaluated and treated the patient. Dr. [...] documentation of findings. I, Lizz Alan MSN, [facility]- examined, evaluated and treated the patient. Dr. [...] documentation of findings. I, Lizz Alan MSN, [facility]- examined, evaluated and treated the patient. Dr. [...] documentation of findings. I, Lizz Alan MSN, [facility]- examined, evaluated and treated the patient. Dr. [...] documentation of findings. I, Lizz Alan MSN, [facility]- examined, evaluated and treated the patient. Dr. [...] facility. Initialy he was treated conservatively at [facility]. His wounds have remained stable and infact ar emesuring larger. As noted he is undergoing vascular workup through [facility]. Given that had previously been treated [...] Date Medicare [address] MICHAEL ZAMORANO [id number] Fabio Javed Self - patient is the insured 7 [facility] [address] [place], [place] [id number] [phone] [id number] Fabio Javed Self - patient is [...] K 21.9 Aortic stenosis I35.0 Anemia D64.9 terminal supervisor (current) use of anticoagulant s Z79.01 Surgical History Surgery Date(Month/Year) Total hip arthroplasty Right Right peroneal artery angioplasty
[2025-02-21 22:54] LABS: TS Negative Control Passed; TS Panel A 0; TS Panel B 0; TS Positive Control Passed; TSpotTB Negative (Negative)
== END 2025-02-16 07:09 | disposition home or self-care (01) ==
LOC: HO.HSH3N 07:08
PROVIDERS: Visit Provider Internal Medicine
DX: Z11.1 Encounter for screening for respiratory tuberculosis (principal)
CPT/HCPCS: 36415; 86481

== ENCOUNTER 2025-03-11 13:31 | Outpatient (REF) | payer MEDICARE, OTHER, SELFPAY ==
--- NOTE | ~2025-03-11 | FL_ITS ---
EXAMINATION: XR BARIUM SWALLOW CLINICAL INFORMATION: Dysphagia COMPARISON: None available. TECHNIQUE: Modified barium swallow was performed with patient in upright sitting in a wheelchair and oral administration of there are consistencies of of food coated with thin and thick barium. FINDINGS: On oral administration of thin liquid barium there is normal propagation bolus from oral cavity through the pharynx into the esophagus with mild retention in the valleculae and perform sinuses. On oral administration of semisolid food there is slow propagation of bolus from the oral cavity through the pharynx and esophagus without any obstruction narrowing. No retention of food in the valleculae and perform sinuses. On oral administration of saltine cracker coated barium there is normal but slow mastication with propagation of solid food from the oral cavity through the pharynx and esophagus. Interval finding of a anteverted epiglottis is noted with mild retention of semisolid food. FLUOROSCOPY TIME: 2 minutes and 30 seconds DOSE AREA PRODUCT: 1797 uGy-m2 (microgray-meter squared) FL/FL Modified Barium Swallow IMPRESSION: Unremarkable modified barium swallow exam. No evidence of laryngeal penetration or aspiration. No major retention of food in the valleculae in spite of anteverted epiglottis. Electronically signed by: Maurilio Keohler MD 03/11/2025 03:30 PM EDT RP
--- NOTE | 2025-03-11 16:46 | MHC.SL.IMP ---
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 Reason for Today's Visit: 21069 Modified Barium Swallow Study Pre-evaluation Dietary Consistencies: Pureed (NDD1) Pre-evaluation Liquid Consistency: Thin Pre-evaluation Medication Administration: UNK Medical History: Modified Barium Swallow Study Fluoroscopic Evaluation of Swallowing Function CPT Code 55194 Evaluation Year: 2024 Reason for Study: Pharyngeal/esophageal dysphagia Referring Physician: Perlita Leong CNP Evaluating Clinician: Daya Adame MA, [facility] Study Number: 1 Patient Name: Fabio Javed Status: Outpatient, Wheelchair Age: 84 Sex: Male Medical History Medical History Chronic wound Wears dentures Cataract Non-rheumatic aortic stenosis NSTEMI (non-ST elevated myocardial infarction) PAF (paroxysmal atrial fibrillation) Surgical History Hx of basal cell carcinoma excision Hx of appendectomy Hx of colonoscopy (~12/04/18) History of right hip replacement (~2010) Current (pre-evaluation) Intake/Diet: Route: PO Diet Grade: Puree Liquid Consistencies: Thin Pre-Study Functional Oral Intake Scale (FOIS): 5- Total oral intake of multiple consistencies requiring special preparation Pain: None reported at time of study SUBJECTIVE: Patient is an 84 year old male sent for a modified barium swallow study (MBSS) from the [facility]. Documentation was provided by the speech pathologist at the home, and indicated patient has been complaining of food getting stuck in his throat and/or mid-chest. He has also been spitting up and vomiting food and thick phlegm. Patient was recently admitted to the [facility] last month. He was initially started on a mechanically ground consistency, but was downgraded to purees. Patient today reports he has not been eating solid foods, only ?liquids and blended foods.? Patient endorses globus sensation below the sternum as well as epigastric pain. Oral Motor Exam Facial Symmetry: Symmetrical Mouth Occlusion: Normal Oral-Facial Teeth Characteristics: Partially Missing Oral-Facial Teeth Miscellaneous Observation: Oral-Facial Lip Pucker Description: Normal Oral-Facial Smile (Lips) Description: Normal Oral-Facial Puff Cheeks Description: Normal Tongue Size: Normal Food and Liquid Trials: Oral Impairment: Lip Closure: 1=Interlabial escape; no progression to anterior tip Oral Impairment: Tongue Control During Bolus Hold: 0=Cohesive bolus between tongue to palatal seal Oral Impairment: Bolus Preparation/Mastication: 2=Disorganized chewing/mashing with solid pieces of bolus Oral Impairment: Bolus Transport/Lingual Motion: 0=Brisk tongue motion Oral Impairment: Oral Residue: 2=Residue collection on oral structures Oral Impairment:Initiation of Pharyngeal Swallow: 0=Bolus head at posterior angle of ramus (first hyoid excursion) Pharyngeal Impairment: Soft Palate Elevation: 0=No bolus between soft palate (SP)/pharyngeal wall (PW) Pharyngeal Impairment: Laryngeal Elevation: 1=Partial thyroid cartilage/arytenoids to epiglottic petiole movement Pharyngeal Impairment: Anterior Hyoid Excursion: 1=Partial anterior movement Pharyngeal Impairment: Epiglottic Movement: 1=Partial inversion Pharyngeal Impairment: Laryngeal Vestibular Closure:: 1=Incomplete: narrow column air/contrast in laryngeal vestibule Pharyngeal Impairment: Pharyngeal Stripping Wave: 1=Present: diminished Pharyngeal Impairment: Pharyngeal Contraction: Did not test Pharyngeal Impairment: Pharyngoesophageal Segment Openin=Complete distension and complete duration: no obstruction of flow Pharyngeal Impairment: Tongue Base (TB) Retraction: 2=Narrow column of contrast/air between TB and posterior PW Pharyngeal Impairment: Pharyngeal Residue: 2=Collection of residue within or on pharyngeal structures Pharyngeal Impairment: Esophageal Clearance Upright Position: Did not test Impressions and Recommendations OBJECTIVE: Time-out: performed at 14:30 Evaluation Start: 14:15; Stop: 14:20 Patient Positioning: Seated 70-90 degrees Viewing Planes: LATERAL ONLY Contrast: MBSImP? Standardized Protocol using commercially prepared, standardized Barium viscosities, including: Varibar? THIN LIQUID (40% w/v, <15 cps) , Varibar? PUDDING (40% w/v, <2594-0066 cps) , 1/2 Shortbread Cookie (1 x1 x.25 ) MBSImP ID: [id number] MBSImP Results: Lip closure for intraoral bolus containment resulted in interlabial escape, without progression to the anterior lip. Tongue control during bolus hold maintained a cohesive bolus held between tongue to palate seal. Bolus preparation and mastication demonstrated disorganized chewing/mashing with solid pieces of the bolus unchewed. Bolus transport/lingual motion was with brisk tongue motion. Oral residue was a collection on oral structures. Initiation of the pharyngeal swallow occurred as the bolus head reached the posterior angle of the mandibular ramus. Soft palate elevation resulted in no bolus between the soft palate and the pharyngeal wall. Laryngeal elevation was decreased, with partial superior movement of the thyroid cartilage/partial approximation of the arytenoids to the epiglottic petiole. Anterior hyoid excursion demonstrated partial anterior movement. Epiglottic movement resulted in partial inversion. Laryngeal vestibular closure was incomplete, with a narrow column of air/contrast noted within the laryngeal vestibule at the height of the swallow. Pharyngeal stripping wave was present, but diminished. Pharyngeal contraction could not be determined due to logistical reasons not related to physiologic impairment. Pharyngoesophageal segment opening was completely distended for complete duration with no obstruction of bolus flow. Tongue base retraction allowed a narrow column of contrast or air between the retracted tongue base and the posterior pharyngeal wall. Pharyngeal residue was a collection of residue within or on pharyngeal structures. Esophageal clearance in the upright position could not be assessed due to logistical reasons not related to physiologic impairment. Oral Impairment Score: 4 Pharyngeal Impairment Score: 9 (absence of score, component 13) Esophageal Impairment Score: --- (absence of score, component 17) Laryngeal Penetration and Aspiration: Neither penetration nor aspiration was observed in today's study with Cookie, Pudding-thick, Thin. ASSESSMENT: This exam was performed by the radiologist and the speech pathologist. Patient was seated upright at 90 degrees for lateral view only. Patient was able to feed himself independently and trialed the following consistencies: -Thin liquid (via individual cup sips) -Puree (mixture applesauce with barium pudding) -Regular solid (shortbread cookies coated in barium pudding) There was trace contrast escaping into the interlabial space, with no anterior loss of bolus. Brisk and timely lingual transport with good control, no premature posterior spillage from the oral cavity. Patient displayed prolonged period of mastication, with a tendency to chew anteriorly. Pharyngeal swallow trigger was timely. Post-swallow, there was minimal residue coating the tongue and palate, which cleared on subsequent swallows. No evidence of nasopharyngeal reflux. Epiglottis appeared retroflexed contributing to collection of contrast in the valleculae. Partial laryngeal elevation with partial epiglottic inversion and incomplete laryngeal vestibular closure (column of air seen in laryngeal vestibule, but no entrance of contrast). There was no evidence of aspiration or penetration during this exam. Minimal pharyngeal residue: -Thin liquid: No evidence of aspiration or penetration. Minimal pooling in the valleculae and pyriforms. -Puree: Minimal collection of residue in the valleculae, which patient expectorated back into the oral cavity to swallow again, this time with improved pharyngeal clearance. No evidence of aspiration or penetration. -Regular solid: Minimal vallecular retention. No evidence of aspiration or penetration. Radiologist performed esophageal sweep and noted no evidence of esophageal retention at the end of the exam. Liquid Intake Recommendation: Thin Dietary Recommendations: Chopped/Advanced (NDD3) Medication Administration: Whole with Liquid Please contact the pharmacy regarding appropriate crushable or liquid drug formulations that are available whenever modified delivery is recommended. Compensatory Strategies Recommended: Sitting Upright (90 deg), Double Swallow, Small Bites and Sips, Alternate Liquids/Solids, Rate of Ingestion Change Supervision during eating and or drinking: Direct Supervision (1:1) Recommended Treatments: Compens. Strategy Educat. Recommendation for Speech Therapy: Speech Therapy through Rehab Facility Text Comment: Intake Recommendations: Route: PO Diet Grade: Chopped/advanced (NDD3) Liquid Consistencies: Thin Post-Study Functional Oral Intake Scale (FOIS): 5- Total oral intake of multiple consistencies requiring special preparation Mild oropharyngeal dysphagia, marked by prolonged period of mastication and anterior chewing pattern, partial laryngeal elevation, and retroflexed epiglottis with partial inversion. Note mild residue on the tongue and in the valleculae, which cleared with secondary swallows. No evidence of aspiration or penetration during this exam. Recommend CHOPPED/ADVANCED (NDD3) solids and THIN liquids, with pills WHOLE in puree or liquid per patient?s tolerance. Patient is recommended to chew food finely, alternate bites with sips of liquid, dry swallow between bites/sips to promote pharyngeal clearance. Patient is recommended a GI consultation to further investigate his symptoms. Suggested Referrals: The patient might benefit from a referral to: Gastroenterology Indication for Referral: Patient c/o epigastric pain, spitting up/vomiting food and phlegm after PO intake. Therapy Recommendations: Speech Therapy will be continued at LTC facility [facility] Goals: ? The patient will tolerate the least restrictive diet with a safe/efficient swallow to maintain adequate nutrition and hydration. ? The patient and/or family will participate in further education for swallowing goals. Short Term Goals: ? Diet - The patient will tolerate a modified dysphagia diet with thin liquids without signs or symptoms of penetration/aspiration 100% of the time. - The patient will participate in therapeutic PO trials with the [facility]. ? Guidelines - The patient will comply with/recall the following guidelines/strategies 100% of the time with minimal cuing: Bolus Volume Change, Rate of Ingestion Change, Liquid Wash, Additional Swallow(s) per Bolus. ? Education - The patient, family, caregiver will verbalize/demonstrate understanding of the results of this evaluation, the above recommendations, and the swallowing guidelines. Clinician - Supplemental, Miscellaneous Communication: It is important to note MBSS objective studies are snapshots in time and Patient function might vary with factors such as time of day or concomitant medical conditions. For this reason, the final treatment plan for this patient should rest with their medical care team. Additional recommendations should be considered with the totality of the Patient in mind. Thank for the opportunity to participate in the care of this patient. If you have any questions about the content of this report, please contact the [facility] at [facility]. Education: Education regarding findings from today's study and plans for therapy were provided to Patient only through Verbal Instruction. Understanding was expressed by the Patient only. Statistical Methods Professor Clinician/Clinical Fellow: No Supervisory Statement: N/A Speech Language Pathologist: Daya Adame M.A., [facility]
== END 2025-03-11 13:32 | disposition home or self-care (01) ==
LOC: HO.XRAY 13:31
PROVIDERS: Visit Provider Nurse Practitioner Acute Care
DX: R10.13 Epigastric pain (principal); R13.10 Dysphagia, unspecified
CPT/HCPCS: 74230; 92611

== ENCOUNTER → 2025-03-11 13:35 | Outpatient (BNV) | payer MEDICARE, OTHER, SELFPAY | PROVIDERS: Visit Provider Radiology Diagnostic Radiology | DX: R13.10 Dysphagia, unspecified (principal); R10.13 Epigastric pain | CPT/HCPCS: 74230 ==